=== PATIENT | female | born 1945 ===

== ENCOUNTER 2016-04-21 11:07 | Observation (INO) | payer MEDICARE, OTHER ==
[2016-04-21 11:08] VITALS: BMI 30.4
--- NOTE | 2016-04-21 11:39 | C.PDOC ---
History Of Present Illness 70 y/o female, whose PMHx includes anxiety, COPD, depression, and A-Fib, presents to the ED complaining of pain to the whole body, including chest pain, abdominal pain, bilateral leg pain, headache, non-productive cough, and nausea. Patient cannot specify onset but describes her symptoms as ongoing. She denies fever, shortness of breath, or other complaints. 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 Time Seen by Provider: 04/21/16 11:27 Chief Complaint (Nursing): Chest Pain History/Exam Limitations: no limitations Onset/Duration Of Symptoms: Gradual, Persistent, Unknown Current Symptoms Are (Timing): Still Present Recent travel outside of the [place]: No Past Medical History Reviewed: Historical Data, Nursing Documentation, Vital Signs Vital Signs: Last Vital Signs Temp Pulse 103 H 04/21/16 15:30 Resp 24 04/21/16 15:30 BP 141/60 04/21/16 15:30 Pulse Ox 100 04/21/16 15:30 - Medical History PMH: Anxiety, Arthritis, Asthma, Atrial Fibrillation, Cardia Arrhythmia, COPD, Depression, Emphysema, Fractures (Right Shoulder), Gastritis, Gastrointestinal Ulcer, HTN, Osteoporosis Surgical History: Appendectomy, Cholecystectomy, Endoscopy - [facility] Procedures CLOSED ENDOSCOPIC BIOPSY OF LARGE INTESTINE (11/26/13) ESOPHAGOGASTRODUODENOSCOPY [EGD] W/CLOSED BIOPSY (11/28/13) Family History: States: Unknown Family Hx - Social History Hx Tobacco Use: No Hx Alcohol Use: No Hx Substance Use: No - Immunization History Hx Tetanus Toxoid Vaccination: No Hx Influenza Vaccination: No Hx Pneumococcal Vaccination: No Review Of Systems Constitutional: Negative for: Fever Cardiovascular: Positive for: Chest Pain Respiratory: Positive for: Cough. Negative for: Shortness of Breath, Sputum Gastrointestinal: Positive for: Nausea, Abdominal Pain Musculoskeletal: Positive for: Leg Pain, Other ("body pain") Neurological: Positive for: Headache Physical Exam - Physical Exam Appears: Non-toxic, No Acute Distress Skin: Normal Color, Warm, Dry Head: Atraumatic, Normacephalic Eye(s): bilateral: Other (blind) Ear(s): Bilateral: Normal Nose: Normal Oral Mucosa: Moist Throat: Normal, No Erythema, No Exudate Neck: Normal ROM, No Midline Cervical Tenderness, Supple Chest: Symmetrical, No Tenderness Cardiovascular: Other (tachycardic & irregular) Respiratory: No Rales, No Rhonchi, No Wheezing, Other (shallow breath sounds; poor effort) Gastrointestinal/Abdominal: Soft, Tenderness (generalized, non-focal), No Guarding, No Rebound Back: Normal Inspection, No CVA Tenderness, No Vertebral Tenderness Extremity: Normal ROM, Tenderness (b/l lower extremities, non-focal; no swelling , no erythema, no ecchymosis), No Deformity Pulses: Left Dorsalis Pedis: Normal, Right Dorsalis Pedis: Normal Neurological/Psych: Oriented x3, Normal Speech, Normal Cognition, Normal Sensation ED Course And Treatment - Laboratory Results Result Diagrams: 04/21/16 11:44 04/21/16 11:44 ECG: Interpreted By Me ECG Rhythm: Sinus Tachycardia, Junctional Rhythm Rate From EC (bpm) O2 Sat by Pulse Oximetry: 97 (ra) Pulse Ox Interpretation: Normal - Other Rad Chest X-Ray X-Ray: Viewed By Me, Read By Radiologist (Hieu Carroll MD) Interpretation: FINDINGS: LUNGS: Mild venous congestion. Biapical pleural thickening with upper lobe granulomatous changes. PLEURA: No pneumothorax or pleural fluid seen. CARDIOVASCULAR: Mild cardiomegaly. OSSEOUS STRUCTURES: Postsurgical changes in the right shoulder. VISUALIZED UPPER ABDOMEN: Normal. OTHER FINDINGS: None. IMPRESSION: Mild venous congestion. Medical Decision Making Medical Decision Making: Impression: patient complains of pain to the whole body. Prior records reviewed, patient was seen 04/01/16 for whole body pain and discharged after normal workup. Plan: * EKG * CXR * Blood Work * Influenza A B * Urinalysis * Urine Culture * Tylenol PO, IV Fluids Progress: Labs reviewed, no acute findings from last visit Patient continues to complain of pain to legs, abdomen, body Case discussed with Dr Saenz who evaluated patient and recommended CT abdomen CT ordered and reviewed with no acute findings Patient remains unchanged. Call and spoke to Dr Franca Mendoza who accepts patient for observation Disposition - Disposition Disposition: HOSPITALIZED Disposition Time: 16:50 Condition: STABLE - POA Present On Arrival: None - Clinical Impression Clinical Impression: Whole body pain, Chest pain, Atrial fibrillation - PA / WAIVER ANALYST / Resident Statement MD/DO has reviewed & agrees with the documentation as recorded. - Scribe Statement The provider has reviewed the documentation as recorded by the Scribe (Selina Gutierrez) All medical record entries made by the Scribe were at my direction and personally dictated by me. I have reviewed the chart and agree that the record accurately reflects my personal performance of the history, physical exam, medical decision making, and the department course for this patient. I have also personally directed, reviewed, and agree with the discharge instructions and disposition. Decision To Admit - Pt Status Changed To: Hospital Disposition Of: Observation - . Bed Request Type: Telemetry Admitting Physician: Porsche Mendoza Patient Diagnosis: Whole body pain, Chest pain, Atrial fibrillation
[2016-04-21 11:48] LABS: BASO % 0.3 % (0.0-2.0); EOS % 0.3 % (0.0-4.0); HEMATOCRIT 39.7 % (34.0-47.0); LYMPH # 0.2 K/uL (1.0-4.3); LYMPH % 2.8 % (20.0-40.0); MEAN CELL VOLUME 92.5 fL (81.0-99.0); MEAN CORPUSCULAR HEMOGLOBIN 31.4 pg (27.0-31.0); MEAN CORPUSCULAR HGB CONC 33.9 g/dL (33.0-37.0); MEAN PLATELET VOLUME 9.8 fL (7.2-11.7); MONO % 12.8 % (0.0-10.0); PLATELET COUNT 123 K/uL (130-400); RED CELL DISTRIBUTION WIDTH 14.2 % (11.5-14.5); WHITE BLOOD COUNT 7.5 K/uL (4.8-10.8)
[2016-04-21 11:58] LABS: CHLORIDE 98 mmol/L (98-107); POTASSIUM 3.4 mmol/L (3.6-5.2); SODIUM 140 mmol/L (132-148)
[2016-04-21 12:00] LABS: BILIRUBIN,TOTAL 1.2 mg/dL (0.2-1.3); GFR AFRICAN-AMERICAN > 60; INR 1.2
[2016-04-21 12:01] LABS: ALB/GLOB RATIO 1.2 (1.0-2.1); ALKALINE PHOSPHATASE 101 U/L (38-126); ALT/SGPT 39 U/L (9-52); AST/SGOT 31 U/L (14-36); BLOOD UREA NITROGEN 11 mg/dL (7-17); CALCIUM 8.8 mg/dl (8.6-10.4); CARBON DIOXIDE 26 mmol/L (22-30); GLUCOSE,RANDOM 109 mg/dL (65-105); TOTAL PROTEIN 7.2 g/dL (6.3-8.3)
[2016-04-21] MEDS ORDERED: Sodium Chloride 0.9% 1,000 ML ONE (12:01)
[2016-04-21] MEDS: Sodium Chloride 0.9% 1,000 ML IV SCH ×2 (12:03→22:22)
[2016-04-21 12:19] LABS: BASOPHIL 1 % (0-2); NEUTROPHIL 85 % (50-75); REACTIVE LYMPHOCYTES 1 % (0-0); TOTAL CELLS COUNTED 100
--- NOTE | 2016-04-21 12:24 | RAD ---
PROCEDURE: CHEST RADIOGRAPH, 1 VIEW HISTORY: Shortness of breath COMPARISON: None available. FINDINGS: LUNGS: Mild venous congestion. Biapical pleural thickening with upper lobe granulomatous changes. PLEURA: No pneumothorax or pleural fluid seen. CARDIOVASCULAR: Mild cardiomegaly. OSSEOUS STRUCTURES: Postsurgical changes in the right shoulder VISUALIZED UPPER ABDOMEN: Normal. OTHER FINDINGS: None. IMPRESSION: Mild venous congestion.
[2016-04-21 15:35] LABS: RBC URINE 3 /hpf (0-3); URINE BILIRUBIN NEGATIVE (NEGATIVE); URINE BLOOD 1+ (NEGATIVE); URINE COLOR Yellow (YELLOW); URINE GLUCOSE (UA) NORMAL (Normal); URINE KETONE 1+ mg/dL (NEGATIVE); URINE LEUKOCYTE ESTERASE TRACE Leu/uL (Negative); URINE PROTEIN NEGATIVE (NEGATIVE); URINE UROBILINOGEN NORMAL mg/dL (0.2-1.0); WBC URINE 2 /hpf (0-5)
[2016-04-21] MEDS ORDERED: Iodixanol 320 MG/ML 100 ML BOTTLE IV ONE (15:35)
--- NOTE | 2016-04-21 16:17 | CT ---
PROCEDURE: CT Abdomen and Pelvis with contrast HISTORY: ABD PAIN COMPARISON: Abdominal ultrasound performed 08/20/15, CT abdomen and pelvis without IV contrast performed 12/13/13 TECHNIQUE: Contrast dose: 100 cc Visipaque 320 Radiation dose: Total exam DLP = 944.22 mGy-cm. FINDINGS: LOWER THORAX: No visible consolidation, pleural effusion, or pneumothorax. 4 mm right middle lobe pulmonary nodule (series 5, image 3). Small hiatal hernia. LIVER: Hypoattenuation of the liver compatible with hepatic steatosis. GALLBLADDER AND BILE DUCTS: Cholecystectomy. Mild central intrahepatic and extrahepatic biliary ductal dilatation. PANCREAS: Unremarkable. SPLEEN: Unremarkable. ADRENALS: Unremarkable. KIDNEYS AND URETERS: The kidneys enhance symmetrically. No evidence of hydronephrosis or obstructing calculus. VASCULATURE: No aortic aneurysm. BOWEL: The stomach is nondistended. Lack of oral contrast limits evaluation for bowel pathology. Bowel loops appear within normal limits of caliber without evidence of obstruction. APPENDIX: The appendix appears within normal limits of caliber. No secondary signs of acute appendicitis. PERITONEUM: No significant free fluid. No definite free air. LYMPH NODES: No bulky lymphadenopathy identified. BLADDER: Unremarkable. REPRODUCTIVE: Uterus is present. BONES: Osseous demineralization. Degenerative changes. OTHER FINDINGS: None. IMPRESSION: 4 mm right middle lobe pulmonary nodule. In the absence of risk factors for lung cancer, no specific imaging follow-up is required. If the patient is a smoker or has other risk factors, follow-up CT at 12 months is recommended to document stability. Hepatic steatosis. Cholecystectomy with mild central intrahepatic and extrahepatic ductal dilatation.
[2016-04-21] MEDS ORDERED: FLOVENT PO PRN (17:58)
--- NOTE | 2016-04-21 18:05 | CP.PCM.HP ---
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) - RENAL Hx Chronic Kidney Disease: No - ENDOCRINE/METABOLIC Hx Endocrine Disorders: No - HEMATOLOGICAL/ONCOLOGICAL Hx Human Immunodeficiency Virus (HIV): No - INTEGUMENTARY Hx Dermatological Problems: No - MUSCULOSKELETAL/RHEUMATOLOGICAL Hx Arthritis: Yes Hx Fractures: Yes (Right Shoulder) Hx Osteoporosis: Yes - GASTROINTESTINAL Hx Gastritis: Yes - GENITOURINARY/GYNECOLOGICAL Hx Sexually Transmitted Disorders: No - PSYCHIATRIC Hx Anxiety: Yes Hx Depression: Yes Hx Substance Use: No - SURGICAL HISTORY Hx Appendectomy: Yes Hx Cholecystectomy: Yes - ANESTHESIA Hx Anesthesia: Yes Hx Anesthesia Reactions: No Hx Malignant Hyperthermia: No Meds Allergies/Adverse Reactions: Allergies Allergy/AdvReac Type Severity Reaction Status Date / Time Sulfa (Sulfonamide Allergy ANAPHYLAXIS Verified 04/21/16 11:23 Antibiotics) sulfasalazine Allergy ITCHING Verified 04/21/16 11:23 Results - Vital Signs Recent Vital Signs: Last Vital Signs Temp Pulse 89 04/21/16 17:56 Resp 25 H 04/21/16 17:56 BP 121/74 04/21/16 17:56 Pulse Ox 97 04/21/16 17:56 - Labs Result Diagrams: 04/21/16 11:44 04/21/16 11:44
[2016-04-21] MEDS ORDERED: Potassium Chloride 20 mEq ER Tab PO ONE (18:30)
--- NOTE | 2016-04-21 21:42 | CP.PCM.CON ---
History of Present Illness - History of Present Illness History of Present Illness: 70 year old with COPD, ? A fib. had cardiac w/u at [place] 12/22 NL LV on echo no or pericardial disease. EST no sig Ischemia. now admitted through ED with generalized body aches, including chest. no EKG changes observe check enzymes. pt is blind and depressed Review of Systems - Constitutional Constitutional: Anorexia - EENT Eyes: absent: Discharge Ears: absent: Ear Discharge, Dizziness Nose/Mouth/Throat: absent: Epistaxis - Cardiovascular Cardiovascular: Chest Pain. absent: Acrocyanosis, Diaphoresis, Palpitations, Syncope - Respiratory Respiratory: Hemoptysis. absent: Cough, Dyspnea - Gastrointestinal Gastrointestinal: absent: Diarrhea, Hematochezia, Vomiting - Genitourinary Genitourinary: absent: Change in Urinary Stream - Reproductive: Female Reproductive:Female: Post Menopausal 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) - RENAL Hx Chronic Kidney Disease: No - ENDOCRINE/METABOLIC Hx Endocrine Disorders: No - HEMATOLOGICAL/ONCOLOGICAL Hx Human Immunodeficiency Virus (HIV): No - INTEGUMENTARY Hx Dermatological Problems: No - MUSCULOSKELETAL/RHEUMATOLOGICAL Hx Arthritis: Yes Hx Fractures: Yes (Right Shoulder) Hx Osteoporosis: Yes - GASTROINTESTINAL Hx Gastritis: Yes - GENITOURINARY/GYNECOLOGICAL Hx Sexually Transmitted Disorders: No - PSYCHIATRIC Hx Anxiety: Yes Hx Depression: Yes Hx Substance Use: No - SURGICAL HISTORY Hx Appendectomy: Yes Hx Cholecystectomy: Yes - ANESTHESIA Hx Anesthesia: Yes Hx Anesthesia Reactions: No Hx Malignant Hyperthermia: No Meds Allergies/Adverse Reactions: Allergies Allergy/AdvReac Type Severity Reaction Status Date / Time Sulfa (Sulfonamide Allergy ANAPHYLAXIS Verified 04/21/16 11:23 Antibiotics) sulfasalazine Allergy ITCHING Verified 04/21/16 11:23 - Medications Medications: Current Medications Alprazolam (Xanax) 1.5 mg PO TID [facility] Last Admin: 04/21/16 18:43 Dose: 1.5 mg Aspirin (Ecotrin) 81 mg PO DAILY [facility] Bupropion HCl (Wellbutrin Xl) 300 mg PO DAILY [facility] Calcium Carbonate (Oscal) 500 mg PO DAILY [facility] Clopidogrel Bisulfate (Plavix) 75 mg PO DAILY [facility] Enoxaparin Sodium (Lovenox) 40 mg SC DAILY [facility] Ergocalciferol (Drisdol 50,000 Intl Units Cap) 1 cap PO QWK [facility] Famotidine (Pepcid) 20 mg PO BID [facility] Furosemide (Lasix) 20 mg IVP DAILY [facility] Home Med (Acetaminophen/Diphenhydramine [Tylenol Pm Ex-Strength Caplet]) 1 tab PO HS [facility] Home Med (Flovent Hfa) 2 puff PO Q6 PRN PRN Reason: Shortness of Breath Home Med (Lando-3/Dha/Epa/Fish Oil [Lando-3 Fish Oil 1,000 Mg Sfgl]) 1,000 mg PO DAILY [facility] Sodium Chloride (Sodium Chloride 0.9%) 1,000 mls @ 100 mls/hr IV .Q10H [facility] Last Admin: 04/21/16 12:03 Dose: 100 mls/hr Isosorbide Mononitrate (Imdur) 30 mg PO DAILY [facility] Tiotropium [place] (Spiriva) 18 mcg INH RQD [facility] Physical Exam - Constitutional Appears: Non-toxic - Head Exam Head Exam: ATRAUMATIC - Eye Exam Additional comments: blind - ENT Exam ENT Exam: Mucous Membranes Moist - Neck Exam Neck exam: Negative for: Lymphadenopathy, Thyromegaly - Respiratory Exam Respiratory Exam: Clear to Auscultation Bilateral. absent: Rales - Cardiovascular Exam Cardiovascular Exam: REGULAR RHYTHM, Systolic Murmur - GI/Abdominal Exam GI & Abdominal Exam: Normal Bowel Sounds. absent: Organomegaly - Rectal Exam Rectal Exam: Deferred - Extremities Exam Extremities exam: Positive for: normal capillary refill. Negative for: calf tenderness - Neurological Exam Neurological exam: Alert, Oriented x3 - Psychiatric Exam Psychiatric exam: Depressed - Skin Skin Exam: Dry Results - Vital Signs Recent Vital Signs: Last Vital Signs Temp Pulse 89 04/21/16 21:30 Resp 18 04/21/16 21:30 BP 150/86 04/21/16 21:30 Pulse Ox 99 04/21/16 21:30 - Labs Result Diagrams: 04/21/16 11:44 04/21/16 11:44 Labs: Laboratory Results - last 24 hr 04/21/16 19:44 Total Creatine Kinase 37 CK-MB (Mass) 1.04 Troponin I, Quant < 0.0120 Assessment & Plan (1) Chest pain Status: Acute (2) Whole body pain Status: Acute (3) Atrial fibrillation Status: Chronic
[2016-04-21] MEDS ORDERED: ACETAMINOPHEN PO SCH (22:00)
[2016-04-21] MEDS ORDERED: DIPHENHYDRAMINE PO SCH (22:00)
[2016-04-22] MEDS: Tiotropium 18 mcg Cap For Inhalation INH SCH (07:43)
[2016-04-22] MEDS: Enoxaparin 40 mg Syringe SC SCH (10:47)
[2016-04-22] MEDS: buPROPion 150 mg/24 Hours XL Tab PO SCH (10:48)
[2016-04-22] MEDS: Omega-3-Acid Ethyl Esters 1 GM Cap PO SCH (12:00)
--- NOTE | 2016-04-22 18:18 | CP.PCM.PN ---
Subjective - Date & Time of Evaluation Date of Evaluation: 04/22/16 Time of Evaluation: 12:00 - Subjective Subjective: still depressed, no sob no pain, neg enzymes, no LA Objective - Vital Signs/Intake and Output Vital Signs (last 24 hours): Temp Pulse Resp BP Pulse Ox 98 F 81 20 120/74 96 04/22/16 15:10 04/22/16 16:11 04/22/16 15:10 04/22/16 15:10 04/22/16 15:10 - Medications Medications: Current Medications Acetaminophen (Tylenol 325mg Tab) 650 mg PO Q8H PRN PRN Reason: Headache Last Admin: 04/22/16 08:59 Dose: 650 mg Alprazolam (Xanax) 1.5 mg PO TID [facility] Last Admin: 04/22/16 18:07 Dose: 1.5 mg Aspirin (Ecotrin) 81 mg PO DAILY [facility] Last Admin: 04/22/16 10:46 Dose: 81 mg Bupropion HCl (Wellbutrin Xl) 300 mg PO DAILY [facility] Last Admin: 04/22/16 10:48 Dose: 300 mg Calcium Carbonate (Oscal) 500 mg PO DAILY [facility] Last Admin: 04/22/16 10:47 Dose: 500 mg Clopidogrel Bisulfate (Plavix) 75 mg PO DAILY [facility] Last Admin: 04/22/16 10:47 Dose: 75 mg Enoxaparin Sodium (Lovenox) 40 mg SC DAILY [facility] Last Admin: 04/22/16 10:47 Dose: 40 mg Ergocalciferol (Drisdol 50,000 Intl Units Cap) 1 cap PO QWK [facility] Famotidine (Pepcid) 20 mg PO BID [facility] Last Admin: 04/22/16 17:32 Dose: 20 mg Furosemide (Lasix) 20 mg IVP DAILY [facility] Last Admin: 04/22/16 10:46 Dose: 20 mg Home Med (Flovent Hfa) 2 puff PO Q6 PRN PRN Reason: Shortness of Breath Sodium Chloride (Sodium Chloride 0.9%) 1,000 mls @ 100 mls/hr IV .Q10H [facility] Last Admin: 04/21/16 22:22 Dose: 100 mls/hr Isosorbide Mononitrate (Imdur) 30 mg PO DAILY [facility] Last Admin: 04/22/16 10:46 Dose: 30 mg Oexqy-[id number] Ethyl Esters (Lovaza) 1 gm PO DAILY [facility] Last Admin: 04/22/16 12:00 Dose: 1 gm Tiotropium [place] (Spiriva) 18 mcg INH RQD [facility] Last Admin: 04/22/16 07:43 Dose: 18 mcg - Labs Labs: PT 12.9 SECONDS (9.7-12.2) H 04/21/16 11:44 INR 1.2 04/21/16 11:44 APTT 32 SECONDS (21-34) 04/21/16 11:44 - Constitutional Appears: Non-toxic - Head Exam Head Exam: ATRAUMATIC - Eye Exam Eye Exam: EOMI - ENT Exam ENT Exam: Mucous Membranes Moist - Neck Exam Neck Exam: absent: Lymphadenopathy, Thyromegaly - Respiratory Exam Respiratory Exam: Clear to Ausculation Bilateral. absent: Rales - Cardiovascular Exam Cardiovascular Exam: REGULAR RHYTHM, Murmur - GI/Abdominal Exam GI & Abdominal Exam: Normal Bowel Sounds. absent: Organomegaly - Rectal Exam Rectal Exam: Deferred - Extremities Exam Extremities Exam: Normal Capillary Refill. absent: Calf Tenderness - Neurological Exam Neurological Exam: Alert, Oriented x3 - Psychiatric Exam Psychiatric exam: Depressed - Skin Skin Exam: Dry Assessment and Plan (1) Chest pain Status: Acute (2) Whole body pain Status: Acute (3) Atrial fibrillation Status: Chronic
--- NOTE | 2016-04-22 18:18 | CP.PCM.PN ---
Subjective - Date & Time of Evaluation Date of Evaluation: 04/22/16 Time of Evaluation: 10:40 - Subjective Subjective: clinically same Objective - Vital Signs/Intake and Output Vital Signs (last 24 hours): Temp Pulse Resp BP Pulse Ox 98 F 81 20 120/74 96 04/22/16 15:10 04/22/16 16:11 04/22/16 15:10 04/22/16 15:10 04/22/16 15:10 - Medications Medications: Current Medications Acetaminophen (Tylenol 325mg Tab) 650 mg PO Q8H PRN PRN Reason: Headache Last Admin: 04/22/16 08:59 Dose: 650 mg Alprazolam (Xanax) 1.5 mg PO TID [facility] Last Admin: 04/22/16 18:07 Dose: 1.5 mg Aspirin (Ecotrin) 81 mg PO DAILY [facility] Last Admin: 04/22/16 10:46 Dose: 81 mg Bupropion HCl (Wellbutrin Xl) 300 mg PO DAILY [facility] Last Admin: 04/22/16 10:48 Dose: 300 mg Calcium Carbonate (Oscal) 500 mg PO DAILY [facility] Last Admin: 04/22/16 10:47 Dose: 500 mg Clopidogrel Bisulfate (Plavix) 75 mg PO DAILY [facility] Last Admin: 04/22/16 10:47 Dose: 75 mg Enoxaparin Sodium (Lovenox) 40 mg SC DAILY [facility] Last Admin: 04/22/16 10:47 Dose: 40 mg Ergocalciferol (Drisdol 50,000 Intl Units Cap) 1 cap PO QWK [facility] Famotidine (Pepcid) 20 mg PO BID [facility] Last Admin: 04/22/16 17:32 Dose: 20 mg Furosemide (Lasix) 20 mg IVP DAILY [facility] Last Admin: 04/22/16 10:46 Dose: 20 mg Home Med (Flovent Hfa) 2 puff PO Q6 PRN PRN Reason: Shortness of Breath Sodium Chloride (Sodium Chloride 0.9%) 1,000 mls @ 100 mls/hr IV .Q10H [facility] Last Admin: 04/21/16 22:22 Dose: 100 mls/hr Isosorbide Mononitrate (Imdur) 30 mg PO DAILY [facility] Last Admin: 04/22/16 10:46 Dose: 30 mg [id number] Ethyl Esters (Lovaza) 1 gm PO DAILY [facility] Last Admin: 04/22/16 12:00 Dose: 1 gm Tiotropium [place] (Spiriva) 18 mcg INH RQD [facility] Last Admin: 04/22/16 07:43 Dose: 18 mcg - Labs Labs: PT 12.9 SECONDS (9.7-12.2) H 04/21/16 11:44 INR 1.2 04/21/16 11:44 APTT 32 SECONDS (21-34) 04/21/16 11:44 - Constitutional Appears: Well - Head Exam Head Exam: ATRAUMATIC, NORMAL INSPECTION, NORMOCEPHALIC - Eye Exam Eye Exam: EOMI, Normal appearance, PERRL Pupil Exam: NORMAL ACCOMODATION, PERRL - ENT Exam ENT Exam: Mucous Membranes Moist, Normal Exam - Respiratory Exam Respiratory Exam: Decreased Breath Sounds - Cardiovascular Exam Cardiovascular Exam: REGULAR RHYTHM, +S1, +S2 - GI/Abdominal Exam GI & Abdominal Exam: Soft, Diminished Bowel Sounds - Rectal Exam Rectal Exam: Deferred
[2016-04-22] MEDS: Sodium Chloride 0.9% 1,000 ML IV SCH (19:59)
[2016-04-23] MEDS: Sodium Chloride 0.9% 1,000 ML IV SCH ×2 (03:52→14:20)
[2016-04-23] MEDS: Tiotropium 18 mcg Cap For Inhalation INH SCH (09:00)
[2016-04-23] MEDS: Enoxaparin 40 mg Syringe SC SCH (09:51)
[2016-04-23] MEDS: Omega-3-Acid Ethyl Esters 1 GM Cap PO SCH (09:51)
[2016-04-23] MEDS: buPROPion 150 mg/24 Hours XL Tab PO SCH (09:52)
--- NOTE | 2016-04-23 17:51 | CP.PCM.PN ---
Subjective - Date & Time of Evaluation Date of Evaluation: 04/23/16 Time of Evaluation: 14:00 - Subjective Subjective: No MD, stable hemodynamicaly Objective - Vital Signs/Intake and Output Vital Signs (last 24 hours): Temp Pulse Resp BP Pulse Ox 100.6 F H 93 H 20 117/72 96 04/23/16 15:00 04/23/16 16:16 04/23/16 15:00 04/23/16 15:00 04/23/16 15:00 Intake and Output: 04/23/16 04/23/16 06:59 18:59 Intake Total 800 Balance 800 - Medications Medications: Current Medications Acetaminophen (Tylenol 325mg Tab) 650 mg PO Q8H PRN PRN Reason: Headache Last Admin: 04/23/16 05:32 Dose: 650 mg Alprazolam (Xanax) 1.5 mg PO TID [facility] Last Admin: 04/23/16 14:18 Dose: Not Given Aspirin (Ecotrin) 81 mg PO DAILY [facility] Last Admin: 04/23/16 09:51 Dose: 81 mg Bupropion HCl (Wellbutrin Xl) 300 mg PO DAILY [facility] Last Admin: 04/23/16 09:52 Dose: 300 mg Calcium Carbonate (Oscal) 500 mg PO DAILY [facility] Last Admin: 04/23/16 09:52 Dose: 500 mg Clopidogrel Bisulfate (Plavix) 75 mg PO DAILY [facility] Last Admin: 04/23/16 09:52 Dose: 75 mg Enoxaparin Sodium (Lovenox) 40 mg SC DAILY [facility] Last Admin: 04/23/16 09:51 Dose: 40 mg Ergocalciferol (Drisdol 50,000 Intl Units Cap) 1 cap PO QWK [facility] Famotidine (Pepcid) 20 mg PO BID [facility] Last Admin: 04/23/16 09:52 Dose: 20 mg Furosemide (Lasix) 20 mg IVP DAILY [facility] Last Admin: 04/23/16 11:18 Dose: 20 mg Home Med (Flovent Hfa) 2 puff PO Q6 PRN PRN Reason: Shortness of Breath Sodium Chloride (Sodium Chloride 0.9%) 1,000 mls @ 100 mls/hr IV .Q10H [facility] Last Admin: 04/23/16 14:20 Dose: 100 mls/hr Isosorbide Mononitrate (Imdur) 30 mg PO DAILY [facility] Last Admin: 04/23/16 09:51 Dose: 30 mg Fjhuu-2-Hduc Ethyl Esters (Lovaza) 1 gm PO DAILY [facility] Last Admin: 04/23/16 09:51 Dose: 1 gm Tiotropium [place] (Spiriva) 18 mcg INH RQD [facility] Last Admin: 04/22/16 07:43 Dose: 18 mcg - Labs Labs: PT 12.9 SECONDS (9.7-12.2) H 04/21/16 11:44 INR 1.2 04/21/16 11:44 APTT 32 SECONDS (21-34) 04/21/16 11:44 - Constitutional Appears: Non-toxic - Head Exam Head Exam: ATRAUMATIC - Eye Exam Eye Exam: EOMI - ENT Exam ENT Exam: Mucous Membranes Moist - Neck Exam Neck Exam: absent: Lymphadenopathy, Thyromegaly - Respiratory Exam Respiratory Exam: Clear to Ausculation Bilateral. absent: Rales - Cardiovascular Exam Cardiovascular Exam: REGULAR RHYTHM - GI/Abdominal Exam GI & Abdominal Exam: Normal Bowel Sounds. absent: Organomegaly - Rectal Exam Rectal Exam: Deferred - Extremities Exam Extremities Exam: Normal Capillary Refill. absent: Calf Tenderness - Neurological Exam Neurological Exam: Alert, Oriented x3 - Psychiatric Exam Psychiatric exam: Depressed - Skin Skin Exam: Dry Assessment and Plan (1) Chest pain Status: Acute (2) Whole body pain Status: Acute (3) Atrial fibrillation Status: Chronic
--- NOTE | 2016-04-23 23:20 | CP.PCM.PN ---
Subjective - Date & Time of Evaluation Date of Evaluation: 04/23/16 Time of Evaluation: 18:00 Objective - Vital Signs/Intake and Output Vital Signs (last 24 hours): Temp Pulse Resp BP Pulse Ox 100.6 F H 93 H 20 117/72 96 04/23/16 15:00 04/23/16 16:16 04/23/16 15:00 04/23/16 15:00 04/23/16 15:00 Intake and Output: 04/23/16 04/24/16 18:59 06:59 Intake Total 800 Balance 800 - Medications Medications: Current Medications Acetaminophen (Tylenol 325mg Tab) 650 mg PO Q8H PRN PRN Reason: Headache Last Admin: 04/23/16 05:32 Dose: 650 mg Alprazolam (Xanax) 1.5 mg PO Q8 [facility] Last Admin: 04/23/16 21:23 Dose: 1.5 mg Aspirin (Ecotrin) 81 mg PO DAILY [facility] Last Admin: 04/23/16 09:51 Dose: 81 mg Bupropion HCl (Wellbutrin Xl) 300 mg PO DAILY [facility] Last Admin: 04/23/16 09:52 Dose: 300 mg Calcium Carbonate (Oscal) 500 mg PO DAILY [facility] Last Admin: 04/23/16 09:52 Dose: 500 mg Clopidogrel Bisulfate (Plavix) 75 mg PO DAILY [facility] Last Admin: 04/23/16 09:52 Dose: 75 mg Enoxaparin Sodium (Lovenox) 40 mg SC DAILY [facility] Last Admin: 04/23/16 09:51 Dose: 40 mg Ergocalciferol (Drisdol 50,000 Intl Units Cap) 1 cap PO QWK [facility] Famotidine (Pepcid) 20 mg PO BID [facility] Last Admin: 04/23/16 18:00 Dose: 20 mg Furosemide (Lasix) 20 mg IVP DAILY [facility] Last Admin: 04/23/16 11:18 Dose: 20 mg Home Med (Flovent Hfa) 2 puff PO Q6 PRN PRN Reason: Shortness of Breath Sodium Chloride (Sodium Chloride 0.9%) 1,000 mls @ 100 mls/hr IV .Q10H [facility] Last Admin: 04/23/16 14:20 Dose: 100 mls/hr Isosorbide Mononitrate (Imdur) 30 mg PO DAILY [facility] Last Admin: 04/23/16 09:51 Dose: 30 mg [id number] Ethyl Esters (Lovaza) 1 gm PO DAILY [facility] Last Admin: 04/23/16 09:51 Dose: 1 gm Tiotropium [place] (Spiriva) 18 mcg INH RQD [facility] Last Admin: 04/22/16 07:43 Dose: 18 mcg - Labs Labs: PT 12.9 SECONDS (9.7-12.2) H 04/21/16 11:44 INR 1.2 04/21/16 11:44 APTT 32 SECONDS (21-34) 04/21/16 11:44
[2016-04-23] MEDS ORDERED: Potassium Chloride 20 mEq ER Tab PO STA (23:23)
--- NOTE | 2016-04-24 09:25 | CARD ---
APPROVED REPORT EKG Measurement Heart [id number] <Conclusion> Unusual P axis and short RI, probable junctional tachycardia vs atrial flutter lateral st segment depressions consider ischemia vs rate related changes Abnormal ECG
[2016-04-24] MEDS: Enoxaparin 40 mg Syringe SC SCH (09:35)
[2016-04-24] MEDS: buPROPion 150 mg/24 Hours XL Tab PO SCH (09:36)
[2016-04-24] MEDS: Omega-3-Acid Ethyl Esters 1 GM Cap PO SCH (09:36)
--- NOTE | 2016-04-24 10:59 | CP.PCM.PN ---
Subjective - Date & Time of Evaluation Date of Evaluation: 04/24/16 Objective - Vital Signs/Intake and Output Vital Signs (last 24 hours): Temp Pulse Resp BP Pulse Ox 98 F 108 H 20 125/67 95 04/24/16 09:01 04/24/16 09:03 04/24/16 09:01 04/24/16 09:01 04/24/16 09:01 - Medications Medications: Current Medications Acetaminophen (Tylenol 325mg Tab) 650 mg PO Q8H PRN PRN Reason: Headache Last Admin: 04/23/16 05:32 Dose: 650 mg Alprazolam (Xanax) 1.5 mg PO Q8 [facility] Last Admin: 04/24/16 05:34 Dose: 1.5 mg Aspirin (Ecotrin) 81 mg PO DAILY [facility] Last Admin: 04/24/16 09:34 Dose: 81 mg Bupropion HCl (Wellbutrin Xl) 300 mg PO DAILY [facility] Last Admin: 04/24/16 09:36 Dose: 300 mg Calcium Carbonate (Oscal) 500 mg PO DAILY [facility] Last Admin: 04/24/16 09:35 Dose: 500 mg Clopidogrel Bisulfate (Plavix) 75 mg PO DAILY [facility] Last Admin: 04/24/16 09:34 Dose: 75 mg Enoxaparin Sodium (Lovenox) 40 mg SC DAILY [facility] Last Admin: 04/24/16 09:35 Dose: 40 mg Ergocalciferol (Drisdol 50,000 Intl Units Cap) 1 cap PO QWK [facility] Famotidine (Pepcid) 20 mg PO BID [facility] Last Admin: 04/24/16 09:34 Dose: 20 mg Furosemide (Lasix) 40 mg PO DAILY [facility] Home Med (Flovent Hfa) 2 puff PO Q6 PRN PRN Reason: Shortness of Breath Isosorbide Mononitrate (Imdur) 30 mg PO DAILY [facility] Last Admin: 04/24/16 09:33 Dose: 30 mg [id number]-5-Uhcr Ethyl Esters (Lovaza) 1 gm PO DAILY [facility] Last Admin: 04/24/16 09:36 Dose: 1 gm Tiotropium [place] (Spiriva) 18 mcg INH RQD [facility] Last Admin: 04/22/16 07:43 Dose: 18 mcg - Labs Labs: PT 12.9 SECONDS (9.7-12.2) H 04/21/16 11:44 INR 1.2 04/21/16 11:44 APTT 32 SECONDS (21-34) 04/21/16 11:44
[2016-04-24 16:16] VITALS: BP 117/83; RESP 22; TEMP 98; O2SAT 99
[2016-04-24 17:40] VITALS: PULSE 0
[2016-04-28] MEDS ORDERED: Ergocalciferol 50,000 Intl Units Cap PO SCH (10:00)
== END 2016-04-24 18:45 | disposition left against medical advice (07) ==
LOC: C.ER 11:07 → C.9E 16:51 → C.6T 22:07
PROVIDERS: ADMIT Internal Medicine Nephrology; ATTEND Internal Medicine Nephrology
DX: R07.9 Chest pain, unspecified (principal); R52 Pain, unspecified; I48.91 Unspecified atrial fibrillation; R10.9 Unspecified abdominal pain; J43.9 Emphysema, unspecified; Z87.891 Personal history of nicotine dependence; I10 Essential (primary) hypertension; H54.0 Blindness, both eyes; F32.9 Major depressive disorder, single episode, unspecified; J45.909 Unspecified asthma, uncomplicated; Z90.49 Acquired absence of other specified parts of digestive tract
CPT/HCPCS: 71010; 74177; 80053; 81001; 83690; 83880; 84484; 85025; 85610; 85730; 87086; 87804; 93005; 94640; 99285; G0378; J1650; J1940; J7040; Q9967

== ENCOUNTER 2016-07-21 00:38 | Emergency (ER) | payer MEDICARE, OTHER ==
[2016-07-21 00:39] VITALS: BMI 30.4
--- NOTE | 2016-07-21 01:02 | C.PDOC ---
History Of Present Illness Patient presents to the ER with a complaint of dysuria and frequency that has worsened over the last 2 days. Patient feels like she cannot void. Denies fever or chills. Time Seen by Provider: 07/21/16 01:02 Chief Complaint (Nursing): Female Genitourinary History Per: Patient History/Exam Limitations: no limitations Onset/Duration Of Symptoms: Days (2) Current Symptoms Are (Timing): Gone Severity: Moderate Pain Scale Rating Of: 4 Quality Of Discomfort: Unable To Describe Associated Symptoms: Urinary Symptoms. denies: Fever, Chills Alleviating Factors: None Recent travel outside of the [place]: No Past Medical History Reviewed: Historical Data, Nursing Documentation, Vital Signs Vital Signs: Last Vital Signs Temp 98.6 F 07/21/16 00:50 Pulse 80 07/21/16 00:50 Resp 14 07/21/16 00:50 BP 116/77 07/21/16 00:50 Pulse Ox 98 07/21/16 03:49 - Medical History PMH: Anxiety, Arthritis, Asthma, Atrial Fibrillation, Cardia Arrhythmia, COPD, Depression, Emphysema, Fractures (Right Shoulder), Gastritis, Gastrointestinal Ulcer, HTN, Osteoporosis Surgical History: Appendectomy, Cholecystectomy, Endoscopy - [facility] Procedures CLOSED ENDOSCOPIC BIOPSY OF LARGE INTESTINE (11/26/13) ESOPHAGOGASTRODUODENOSCOPY [EGD] W/CLOSED BIOPSY (11/28/13) Family History: States: No Known Family Hx - Social History Hx Tobacco Use: No Hx Alcohol Use: No Hx Substance Use: No - Immunization History Hx Tetanus Toxoid Vaccination: No Hx Influenza Vaccination: No Hx Pneumococcal Vaccination: No Review Of Systems Constitutional: Negative for: Fever, Chills Genitourinary: Positive for: Dysuria, Frequency Physical Exam - Physical Exam Appears: Non-toxic Skin: Warm, Dry Oral Mucosa: Moist Chest: Symmetrical, No Tenderness Cardiovascular: Rhythm Regular, No Murmur Respiratory: No Rales, No Rhonchi, No Wheezing Gastrointestinal/Abdominal: Soft, Tenderness (Suprapubic) Neurological/Psych: Oriented x3 ED Course And Treatment O2 Sat by Pulse Oximetry: 98 (Room air) Pulse Ox Interpretation: Normal Progress Note: Macrobid and pyridium ordered. Disposition Counseled Patient/Family Regarding: Studies Performed, Diagnosis, Need For Followup, Rx Given - Disposition Referrals: Sarita Darden MD [Staff Provider] - Disposition: HOME/ ROUTINE Disposition Time: 01:02 Condition: FAIR Prescriptions: Nitrofurantoin Macrocrystals [Macrobid] 1 cap PO BID #14 cap Phenazopyridine HCl [Pyridium] 200 mg PO TID #6 tablet Instructions: Urinary Tract Infection in Women (DC) - Clinical Impression Clinical Impression: UTI (lower urinary tract infection) - Scribe Statement The provider has reviewed the documentation as recorded by the Scribnavjot Minor All medical record entries made by the Scribe were at my direction and personally dictated by me. I have reviewed the chart and agree that the record accurately reflects my personal performance of the history, physical exam, medical decision making, and the department course for this patient. I have also personally directed, reviewed, and agree with the discharge instructions and disposition.
[2016-07-21 01:48] LABS: RBC URINE 6 /hpf (0-3); URINE BACTERIA MOD (<OCC); URINE BILIRUBIN NEGATIVE (NEGATIVE); URINE BLOOD NEGATIVE (NEGATIVE); URINE COLOR Yellow (YELLOW); URINE GLUCOSE (UA) NORMAL (Normal); URINE KETONE NEGATIVE (NEGATIVE); URINE LEUKOCYTE ESTERASE 3+ Leu/uL (Negative); URINE PROTEIN 1+ mg/dL (NEGATIVE); URINE UROBILINOGEN NORMAL mg/dL (0.2-1.0); WBC CLUMPS FEW /hpf; WBC URINE 858 /hpf (0-5)
[2016-07-21 05:26] VITALS: BP 119/72; PULSE 69; RESP 20; TEMP 97; O2SAT 97
== END 2016-07-21 06:13 | disposition home or self-care (01) ==
LOC: C.ER 00:38
DX: N39.0 Urinary tract infection, site not specified (principal)

== ENCOUNTER 2016-08-14 18:35 | Emergency (ER) | payer MEDICARE, OTHER ==
[2016-08-14 18:36] VITALS: BMI 30.4
--- NOTE | 2016-08-14 19:28 | C.PDOC ---
History Of Present Illness Patient presents to the ED with complaints of back pain and leg pain with unknown start date. Patient notes similar symptoms in the past and denies any fever, chills, nausea, vomiting, chest pain, SOB, or trauma. Time Seen by Provider: 08/14/16 19:28 Chief Complaint (Nursing): Back Pain History Per: Patient History/Exam Limitations: no limitations Onset/Duration Of Symptoms: Unknown Current Symptoms Are (Timing): Still Present Quality Of Discomfort: "Pain" (vague description of pain ) Severity: Mild Pain Scale Rating Of: 3 Previous Symptoms: Back Pain Associated Symptoms: None Recent travel outside of the [place]: No Additional History Per: Prior Records Past Medical History Reviewed: Historical Data, Nursing Documentation, Vital Signs Vital Signs: Last Vital Signs Temp 98 F 08/14/16 18:59 Pulse 77 08/14/16 18:59 Resp 18 08/14/16 18:59 BP 150/78 08/14/16 18:59 Pulse Ox 98 08/14/16 22:12 - Medical History PMH: Anxiety, Arthritis, Asthma, Atrial Fibrillation, Cardia Arrhythmia, COPD, Depression, Emphysema, Fractures (Right Shoulder), Gastritis, Gastrointestinal Ulcer, HTN, Osteoporosis Surgical History: Appendectomy, Cholecystectomy, Endoscopy - [facility] Procedures CLOSED ENDOSCOPIC BIOPSY OF LARGE INTESTINE (11/26/13) ESOPHAGOGASTRODUODENOSCOPY [EGD] W/CLOSED BIOPSY (11/28/13) Family History: States: Unknown Family Hx - Social History Hx Tobacco Use: No Hx Alcohol Use: No Hx Substance Use: No - Immunization History Hx Tetanus Toxoid Vaccination: No Hx Influenza Vaccination: No Hx Pneumococcal Vaccination: No Review Of Systems Constitutional: Negative for: Fever, Chills ENT: Negative for: Throat Pain Cardiovascular: Negative for: Chest Pain, Palpitations Respiratory: Negative for: Cough, Shortness of Breath Gastrointestinal: Negative for: Nausea, Vomiting, Abdominal Pain, Diarrhea Genitourinary: Negative for: Dysuria Musculoskeletal: Positive for: Back Pain, Leg Pain Skin: Negative for: Rash, Lesions, Jaundice Neurological: Negative for: Weakness, Numbness Psych: Negative for: Anxiety Physical Exam - Physical Exam Appears: Non-toxic, No Acute Distress Skin: Warm, Dry Head: Normacephalic Eye(s): bilateral: Other (Patient is blind bilaterally ) Oral Mucosa: Moist Neck: Trachea Midline, Supple Chest: Symmetrical, No Deformity Cardiovascular: Rhythm Regular Respiratory: No Rales, No Rhonchi, No Wheezing Gastrointestinal/Abdominal: Bowel Sounds (good bowel sounds ), Soft, No Tenderness, No Distention, No Guarding, No Rebound Back: Vertebral Tenderness Extremity: Normal ROM, No Tenderness, No Calf Tenderness, Capillary Refill ( good capillary refill, less than two seconds ), No Swelling Extremity: Bilateral: Atraumatic, Normal Color And Temperature, Normal ROM Pulses: Left Dorsalis Pedis: Normal, Right Dorsalis Pedis: Normal Neurological/Psych: Oriented x3, Normal Speech, Normal Cognition, Other (no focal deficits) Gait: With Assistance ED Course And Treatment - Laboratory Results Result Diagrams: 08/14/16 20:21 08/14/16 20:21 ECG: Interpreted By Me, Viewed By Me ECG Rhythm: Sinus Rhythm (77), Nonspecific Changes O2 Sat by Pulse Oximetry: 98 (room air) Pulse Ox Interpretation: Normal - Radiology CXR: Interpreted by Me, Viewed By Me CXR Interpretation: Yes: Other (unchnaged from 04/22). No: Infiltrates, Fracture , Pnemothorax Progress Note: 10:30 PM Pt states she feels fine and wants to go home. Understands the risks as I've explained at length iincluding worsening condition , permanent disability and , but pt states that if she doen't feel well, she'll return. she also refused the antibiotic Medical Decision Making Medical Decision Making: Upon provider reevaluation patient is feeling better, is medically stable, and requires no further treatment in the ED at this time. Patient will be discharged home . Counseling was provided and all questions were answered regarding diagnosis and need for follow up with the referred clinic. There is agreement to discharge plan. Return if symptoms persist or worsen. Disposition Comment: accepted the pt on his service and took over the care at 10PM Counseled Patient/Family Regarding: Studies Performed, Diagnosis, Need For Followup - Disposition Referrals: [facility] [Outside] [facility] [Outside] Disposition: HOME/ ROUTINE Disposition Time: 19:28 Condition: FAIR Additional Instructions: please follow up with your doctor and do return if you have fever, chills, and just don't feel well Instructions: Back Pain (ED), Leukocytosis (DC) - POA Present On Arrival: None - Clinical Impression Clinical Impression: Chronic back pain, Leukocytosis - Scribe Statement The provider has reviewed the documentation as recorded by the Yolandeibe Abigail Murrell All medical record entries made by the Dilip were at my direction and personally dictated by me. I have reviewed the chart and agree that the record accurately reflects my personal performance of the history, physical exam, medical decision making, and the department course for this patient. I have also personally directed, reviewed, and agree with the discharge instructions and disposition.
[2016-08-14 20:27] LABS: BASO # 0.1 K/uL (0.0-0.2); BASO % 0.4 % (0.0-2.0); EOS % 0.1 % (0.0-4.0); HEMOGLOBIN 12.3 g/dL (11.0-16.0); LYMPH # 0.4 K/uL (1.0-4.3); LYMPH % 2.2 % (20.0-40.0); MEAN CELL VOLUME 91.9 fL (81.0-99.0); MEAN CORPUSCULAR HEMOGLOBIN 29.9 pg (27.0-31.0); MEAN CORPUSCULAR HGB CONC 32.5 g/dL (33.0-37.0); MEAN PLATELET VOLUME 9.8 fL (7.2-11.7); MONO # 1.1 K/uL (0.0-0.8); MONO % 6.6 % (0.0-10.0); NEUT # 15.5 K/uL (1.8-7.0); NEUT % 90.7 % (50.0-75.0); PLATELET COUNT 158 K/uL (130-400); RBC 4.12 Mil/uL (3.80-5.20); RED CELL DISTRIBUTION WIDTH 13.7 % (11.5-14.5); WHITE BLOOD COUNT 17.1 K/uL (4.8-10.8)
[2016-08-14 20:32] LABS: ALBUMIN 3.6 g/dL (3.5-5.0)
[2016-08-14 20:35] LABS: ALB/GLOB RATIO 1.2 (1.0-2.1); ALT/SGPT 65 U/L (9-52); AST/SGOT 76 U/L (14-36); BLOOD UREA NITROGEN 16 mg/dL (7-17); GFR AFRICAN-AMERICAN > 60; GFR NON-AFRICAN AMERICAN > 60
[2016-08-14 20:36] LABS: CALCIUM 8.6 mg/dl (8.6-10.4)
[2016-08-14 20:38] LABS: PROTHROMBIN TIME 11.6 SECONDS (9.7-12.2)
[2016-08-14 21:14] LABS: LYMPHOCYTE 4 % (20-40); MONOCYTE 3 % (0-10); NEUTROPHIL 93 % (50-75); PLATELET ESTIMATE NORMAL (NORMAL); TOTAL CELLS COUNTED 100
--- NOTE | 2016-08-14 21:22 | CT ---
EXAM: CT Lumbar Spine Without Intravenous Contrast CLINICAL HISTORY: 71 years old, female; Pain; Low back pain TECHNIQUE: Axial computed tomography images of the lumbar spine without intravenous contrast. This CT exam was performed using one or more of the following dose reduction techniques: automated exposure control, adjustment of the mA and/or kV according to patient size, and/or use of iterative reconstruction technique. Coronal and sagittal reformatted images were created and reviewed. COMPARISON: CR - LS SPINE AP/LAT 12/25/2014 9:19:29 AM FINDINGS: Vertebrae: No acute fracture. Anterior and lateral osteophytes. Mild facet osteoarthrosis within lower lumbar spine. Discs/spinal canal/neural foramina: Mild disc herniations at L4-L5, L5-S1 levels. Mild central canal stenosis or L4-L5 level. Neuroforaminal narrowing at L4-L5 and L5-S1 levels. Other bones/joints: Mild degenerative changes of sacroiliac joints. Soft tissues: Unremarkable. Vasculature: Minimal atherosclerotic disease. Gallbladder and bile ducts: Cholecystectomy. IMPRESSION: 1. No fracture. 2. If back pain persists, consider MRI for further evaluation. 3. Incidental/non-acute findings are described above.
[2016-08-14 21:53] LABS: SQUAMOUS EPITHIAL 2 /hpf (0-5); URINE BILIRUBIN NEGATIVE (NEGATIVE); URINE BLOOD NEGATIVE (NEGATIVE); URINE CLARITY Clear (Clear); URINE COLOR Yellow (YELLOW); URINE GLUCOSE (UA) NORMAL (Normal); URINE LEUKOCYTE ESTERASE NEG Leu/uL (Negative); URINE NITRATE NEGATIVE (NEGATIVE); URINE PROTEIN NEGATIVE (NEGATIVE); URINE UROBILINOGEN NORMAL mg/dL (0.2-1.0)
[2016-08-14] MEDS ORDERED: Piperacillin/Tazobact 3.375 gm 100 ML IVPB STA (22:26)
[2016-08-14 22:43] VITALS: BP 140/83; PULSE 84; RESP 16; TEMP 98.5; O2SAT 99
--- NOTE | 2016-08-15 08:57 | RAD ---
PROCEDURE: CHEST RADIOGRAPH, 1 VIEW HISTORY: Shortness of breath COMPARISON: 04/11/2016 FINDINGS: LUNGS: Biapical pleural thickening with upper lobe granulomatous changes. Nodular consolidation at the right lung apex may represent productive change at the end of the 1st rib. Mild venous congestion. Elevated right hemidiaphragm. Bilateral hilar prominence. PLEURA: No pneumothorax or pleural fluid seen. CARDIOVASCULAR: Cardiomegaly. OSSEOUS STRUCTURES: Postsurgical changes in the right humerus. VISUALIZED UPPER ABDOMEN: Normal. OTHER FINDINGS: None. IMPRESSION: Biapical pleural thickening with upper lobe granulomatous changes. Nodular consolidation at the right lung apex may represent productive change at the end of the 1st rib. Mild venous congestion. Elevated right hemidiaphragm. Bilateral hilar prominence.
--- NOTE | 2016-08-17 11:06 | CARD ---
APPROVED REPORT EKG Measurement Heart [id number] <Conclusion> Normal sinus rhythm Nonspecific ST and T wave abnormality Abnormal ECG
== END 2016-08-15 00:17 | disposition home or self-care (01) ==
LOC: C.ER 18:35
DX: M54.5 Low back pain (principal); G89.29 Other chronic pain; D72.829 Elevated white blood cell count, unspecified

== ENCOUNTER 2017-02-02 14:29 | Inpatient (IN) | payer MEDICARE, OTHER ==
[2017-02-02 14:30] VITALS: BMI 30.4
[2017-02-02 16:19] LABS: BASO # 0.1 K/uL (0.0-0.2); BASO % 0.9 % (0.0-2.0); EOS # 0.1 K/uL (0.0-0.7); EOS % 0.7 % (0.0-4.0); HEMOGLOBIN 13.5 g/dL (11.0-16.0); LYMPH # 1.1 K/uL (1.0-4.3); LYMPH % 14.7 % (20.0-40.0); MEAN CELL VOLUME 93.5 fL (81.0-99.0); MEAN CORPUSCULAR HEMOGLOBIN 31.3 pg (27.0-31.0); MEAN CORPUSCULAR HGB CONC 33.5 g/dL (33.0-37.0); MEAN PLATELET VOLUME 9.4 fL (7.2-11.7); MONO % 12.9 % (0.0-10.0); NEUT # 5.4 K/uL (1.8-7.0); NEUT % 70.8 % (50.0-75.0); RBC 4.32 Mil/uL (3.80-5.20); RED CELL DISTRIBUTION WIDTH 14.4 % (11.5-14.5); WHITE BLOOD COUNT 7.6 K/uL (4.8-10.8)
[2017-02-02 16:30] LABS: PROTHROMBIN TIME 11.3 SECONDS (9.7-12.2)
[2017-02-02 16:37] LABS: CALCIUM 8.1 mg/dl (8.6-10.4); GFR AFRICAN-AMERICAN > 60; GFR NON-AFRICAN AMERICAN > 60
[2017-02-02 16:38] LABS: ALB/GLOB RATIO 1.1 (1.0-2.1); ALBUMIN 3.9 g/dL (3.5-5.0); ALT/SGPT 27 U/L (9-52); AST/SGOT 44 U/L (14-36); BLOOD UREA NITROGEN 20 mg/dL (7-17)
--- NOTE | 2017-02-02 16:51 | CT ---
PROCEDURE: CT HEAD WITHOUT CONTRAST. HISTORY: r/o ICH COMPARISON: Noncontrast head CT performed 02/04/15 TECHNIQUE: Axial computed tomography images were obtained through the head/brain without intravenous contrast. Radiation dose: Total exam DLP = 919.40 mGy-cm. This CT exam was performed using one or more of the following dose reduction techniques: Automated exposure control, adjustment of the mA and/or kV according to patient size, and/or use of iterative reconstruction technique. FINDINGS: HEMORRHAGE: No intracranial hemorrhage. BRAIN: Diffuse atrophy with prominence of the ventricles and sulci noted. No mass effect or edema. Intracranial atherosclerosis. Mild scattered nonspecific white matter changes. The pizarro-white matter differentiation appears otherwise intact. Please note that MRI with diffusion imaging is more sensitive in the detection of acute ischemic event. VENTRICLES: No hydrocephalus. CALVARIUM: Unremarkable. PARANASAL SINUSES: Unremarkable as visualized. No significant inflammatory changes. MASTOID AIR CELLS: Unremarkable as visualized. No inflammatory changes. OTHER FINDINGS: Partial opacification of the left external auditory canal, likely cerumen. IMPRESSION: No acute intracranial pathology identified. Incidental findings as above.
[2017-02-02] MEDS: Sodium Chloride 0.9% 1,000 ML IV SCH ×2 (17:00→20:28)
[2017-02-02 17:03] LABS: SQUAMOUS EPITHIAL < 1 /hpf (0-5); URINE BACTERIA MANY (<OCC); URINE BILIRUBIN NEGATIVE (NEGATIVE); URINE BLOOD 1+ (NEGATIVE); URINE CLARITY Hazy (Clear); URINE COLOR Yellow (YELLOW); URINE GLUCOSE (UA) NORMAL (Normal); URINE LEUKOCYTE ESTERASE 3+ Leu/uL (Negative); URINE NITRATE POSITIVE (NEGATIVE); URINE PROTEIN NEGATIVE (NEGATIVE); URINE UROBILINOGEN NORMAL mg/dL (0.2-1.0)
[2017-02-02] MEDS ORDERED: Sodium Chloride 0.9% 1,000 ML ONE (17:04)
--- NOTE | 2017-02-02 17:06 | RAD ---
PROCEDURE: CHEST RADIOGRAPH, 1 VIEW HISTORY: r/o infiltrate COMPARISON: 08/14/2016 FINDINGS: LUNGS: Clear shallow lung volumes. PLEURA: No pneumothorax or pleural fluid seen. CARDIOVASCULAR: Mild cardiomegaly and similar OSSEOUS STRUCTURES: Partially visualized right shoulder hemiarthroplasty -similar VISUALIZED UPPER ABDOMEN: Normal. OTHER FINDINGS: None. IMPRESSION: No interval pathology noted. Specifically no pulmonary infiltrate seen
--- NOTE | 2017-02-02 17:18 | CT ---
CT orbits without IV contrast Indication: Rule out fracture Comparison: Noncontrast head CT performed the same day. Technique: Axial computed tomography images were obtained of the orbits without the use of intravenous contrast. Coronal and sagittal reformatted images were generated and reviewed. This CT exam was performed using 1 or more of the falling dose reduction techniques: Automated exposure control, adjustment of the MAA and/or kV according to patient size, and/or use of iterative reconstruction technique. Radiation dose: Total exam DLP = 780.22 mGy-cm. Findings: Streak artifact from dental hardware. The facial bones appear intact without acute displaced fracture identified. The orbits appear unremarkable. The temporomandibular joints are located. The mastoid air cells appear clear. The paranasal sinuses appear clear. No air-fluid levels identified. Please note sagittal views demonstrate oblique lucency involving the inferior aspect of C2 which is suspected to reflect degenerative changes and possible vascular groove however nondisplaced fracture cannot be entirely excluded. Osseous demineralization limits evaluation. Correlate clinically. MRI of the cervical spine may be considered for further evaluation. Impression: The orbits appear intact. Please note sagittal views demonstrate oblique lucency involving the inferior aspect of C2 which is suspected to reflect degenerative changes and possible vascular groove however nondisplaced fracture cannot be entirely excluded. Osseous demineralization limits evaluation. Correlate clinically. MRI of the cervical spine may be considered for further evaluation. Findings discussed with Dr. Walton on 02/02/17 at 5:15 p.m.
--- NOTE | 2017-02-02 18:06 | CP.PCM.HP ---
<Austin Goodman - Last Filed: 02/02/17 19:11> History of Present Illness - History of Present Illness History of Present Illness: CC: "I've been getting lightheaded" HPI: Mrs Joseph is a 71 year old legally blind female with a PMHx of AFib, HTN, COPD, Anxiety/Depression, who was brought in by her homemaker for a fall that occurred outside her home. 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 She complains of neck pain located posteriorly, she says rotating her head left or right causes pain, however she better tolerates flexion and extension. She denies losing consciousness, fever, cough, or neck stiffness. She states the past few days she's been feeling lightheaded and has had a decreased appetite. She also endorsed urinary frequency in the past few days. She denies chest pain, abdominal pain, dysuria, shortness of breath. PMD: Dr Darden Manager Car: Dr Gil Molina PMHx: HTN, AFib, COPD, Anxiety, Depression, Degenerative Bone Disease PSHx: cholecystectomy, R shoulder with prosthetic device, eye surgery, hemorrhoidectomy Allergies: Sulfa drugs - rash Home medications: long medication list - see MAR FamHx: Father - pancreatic CA, Mother - heart problems, Brother - DM SocialHx: lives alone with homemaker 4x per week for 4 hours per day; former smoker - quit in the 80s; denies illicit drug use or alcohol Present on Admission - Present on Admission Any Indicators Present on Admission: No Review of Systems - Constitutional Constitutional: Weakness. absent: Chills, Fever - EENT Additional comments: Legally blind - uses a white cane to assist with ambulation - Cardiovascular Cardiovascular: Lightheadedness. absent: Chest Pain - Respiratory Respiratory: absent: Cough, Dyspnea - Gastrointestinal Gastrointestinal: absent: Abdominal Pain - Genitourinary Genitourinary: Urinary Frequency. absent: Dysuria - Musculoskeletal Musculoskeletal: Back Pain - Integumentary Integumentary: absent: Bleeding Lesions - Neurological Neurological: absent: Syncope 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) - RENAL Hx Chronic Kidney Disease: No - ENDOCRINE/METABOLIC Hx Endocrine Disorders: No - HEMATOLOGICAL/ONCOLOGICAL Hx Human Immunodeficiency Virus (HIV): No - INTEGUMENTARY Hx Dermatological Problems: No - MUSCULOSKELETAL/RHEUMATOLOGICAL Hx Arthritis: Yes Hx Fractures: Yes (Right Shoulder) Hx Osteoporosis: Yes - GASTROINTESTINAL Hx Gastritis: Yes - GENITOURINARY/GYNECOLOGICAL Hx Sexually Transmitted Disorders: No - PSYCHIATRIC Hx Anxiety: Yes Hx Depression: Yes Hx Substance Use: No - SURGICAL HISTORY Hx Appendectomy: Yes Hx Cholecystectomy: Yes - ANESTHESIA Hx Anesthesia: Yes Hx Anesthesia Reactions: No Hx Malignant Hyperthermia: No Meds Allergies/Adverse Reactions: Allergies Allergy/AdvReac Type Severity Reaction Status Date / Time Sulfa (Sulfonamide Allergy ANAPHYLAXIS Verified 02/02/17 14:46 Antibiotics) sulfasalazine Allergy ITCHING Verified 02/02/17 14:46 Physical Exam - Constitutional Appears: Non-toxic, Unkempt, Chronically Ill - Head Exam Head Exam: absent: ATRAUMATIC, NORMAL INSPECTION Additional comments: 3cm diameter laceration on forehead - Eye Exam Pupil Exam: Fixed, Miosis Additional comments: legally blind - uses white cane to assist with ambulation - ENT Exam ENT Exam: Mucous Membranes Moist - Neck Exam Neck exam: Positive for: Tenderness Additional comments: Limited ROM in rotation 2/2 to pain Point tenderness at C2 - Respiratory Exam Respiratory Exam: Decreased Breath Sounds. absent: Chest Wall Tenderness, Rales , Rhonchi, Wheezes - Cardiovascular Exam Cardiovascular Exam: Irregular Rhythm, +S1, +S2. absent: Tachycardia, JVD, Systolic Murmur - GI/Abdominal Exam GI & Abdominal Exam: Normal Bowel Sounds, Soft. absent: Tenderness - Extremities Exam Extremities exam: Positive for: full ROM Additional comments: motor strength 5/5 in all extremities - Neurological Exam Neurological exam: Alert, CN II-XII Intact, Oriented x3, Reflexes Normal Additional comments: sensation intact in all extremities and face - Skin Skin Exam: Intact, Warm Results - Vital Signs Recent Vital Signs: Last Vital Signs Temp 98.8 F 1228/17 14:45 Pulse 89 02/02/17 17:07 Resp 16 02/02/17 17:07 BP 136/68 02/02/17 17:07 Pulse Ox 98 02/02/17 17:07 - Labs Result Diagrams: 02/02/17 16:08 02/02/17 16:08 Labs: Laboratory Results - last 24 hr 02/02/17 02/02/17 02/02/17 16:08 16:08 16:08 WBC 7.6 D RBC 4.32 Hgb 13.5 Hct 40.4 MCV 93.5 MCH 31.3 H MCHC 33.5 RDW 14.4 Plt Count 207 MPV 9.4 Neut % (Auto) 70.8 Lymph % (Auto) 14.7 L [place] % (Auto) 12.9 H Eos % (Auto) 0.7 Baso % (Auto) 0.9 Neut # 5.4 Lymph # 1.1 [place] # 1.0 H Eos # 0.1 Baso # 0.1 PT 11.3 INR 1.0 APTT 31 Sodium 139 Potassium 4.9 Chloride 101 Carbon Dioxide 29 Anion Gap 14 BUN 20 H Creatinine 0.7 Est GFR ( Amer) > 60 Est GFR (Non-Af Amer) > 60 Random Glucose 100 Calcium 8.1 L Total Bilirubin 1.0 AST 44 H ALT 27 Alkaline Phosphatase 131 H Troponin I < 0.0120 Total Protein 7.3 Albumin 3.9 Globulin 3.4 Albumin/Globulin Ratio 1.1 Urine Color Urine Clarity Urine pH Ur Specific [place] Urine Protein Urine Glucose (UA) Urine Ketones Urine Blood Urine Nitrate Urine Bilirubin Urine Urobilinogen Ur Leukocyte Esterase Urine WBC (Auto) Urine RBC (Auto) Ur Squamous Epith Cells Ur Transition Epith Cell Urine Bacteria 02/02/17 16:46 WBC RBC Hgb Hct MCV MCH MCHC RDW Plt Count MPV Neut % (Auto) Lymph % (Auto) [place] % (Auto) Eos % (Auto) Baso % (Auto) Neut # Lymph # [place] # Eos # Baso # PT INR APTT Sodium Potassium Chloride Carbon Dioxide Anion Gap BUN Creatinine Est GFR ( Amer) Est GFR (Non-Af Amer) Random Glucose Calcium Total Bilirubin AST ALT Alkaline Phosphatase Troponin I Total Protein Albumin Globulin Albumin/Globulin Ratio Urine Color Yellow Urine Clarity Hazy Urine pH 7.0 Ur Specific Ferr[place] 1.008 Urine Protein Negative Urine Glucose (UA) Normal Urine Ketones Negative Urine Blood 1+ H Urine Nitrate Positive H Urine Bilirubin Negative Urine Urobilinogen Normal Ur Leukocyte Esterase 3+ H Urine WBC (Auto) 234 H Urine RBC (Auto) 6 H Ur Squamous Epith Cells < 1 Ur Transition Epith Cell < 1 Urine Bacteria Many H Assessment & Plan (1) Status post fall Assessment and Plan: Potential C2 fracture Neurology consult, Dr Shah Neurosurgery consult, Dr Dsouza MRI can not be done 03/10 to patient with right shoulder metal prosthetics Apply cervical collar HOLD home med Aspirin 81mg due to recent head trauma Imaging: CT orbits w/o IV contrast 02/02: The orbits appear intact. Please note sagittal views demonstrate oblique lucency involving the inferior aspect of C2 which is suspected to reflect degenerative changes and possible vascular groove however nondisplaced fracture cannot be entirely excluded. Osseous demineralization limits evaluation. Correlate clinically. MRI of the cervical spine may be considered for further evaluation. CT head w/o contrast 02/02: No acute intracranial pathology identified. Incidental findings as above. F/U Cervical spine w/o contrast 02/02 Status: Acute (2) Urinary tract infection Assessment and Plan: + Urinary Frequency; lightheaded; afebrile; no leukocytosis UA 02/02: Many bacteria, 1+ blood, +Nitrate, 3+ leukocyte esterase, wbc 234, wbc 6 F/U Blood culture, F/U Urine culture Rocephin 1g IVPB QD NS at 100 cc/hr Status: Acute (3) Anxiety Assessment and Plan: con't home med xanax 1g PO QD Status: Acute (4) Depression Assessment and Plan: con't home med bupropion XL 300mg PO QD Status: Acute (5) Atrial fibrillation Assessment and Plan: Rate controlled con't home med metoprolol succinate 50mg PO QD Status: Chronic (6) Hypertension Assessment and Plan: BP well controlled con't home med isosorbide mononitrate 60mg PO QD Status: Chronic (7) Dementia Assessment and Plan: cont' home med Memantine 10mg PO QD Status: Acute (8) Prophylactic antibiotic Assessment and Plan: Protonix 40mg PO QD SCDs HOLD VTE therapy due to recent head trauma Heart healthy diet Status: Acute <Juan Larose - Last Filed: 02/03/17 07:20> Results - Vital Signs Recent Vital Signs: Last Vital Signs Temp 98.0 F 02/03/17 04:00 Pulse 89 02/03/17 04:00 Resp 20 02/03/17 04:00 BP 135/77 02/03/17 04:00 Pulse Ox 95 02/03/17 04:00 - Labs Result Diagrams: 02/02/17 16:08 02/02/17 16:08 Labs: Laboratory Results - last 24 hr 02/02/17 02/02/17 02/02/17 16:08 16:08 16:08 WBC 7.6 D RBC 4.32 Hgb 13.5 Hct 40.4 MCV 93.5 MCH 31.3 H MCHC 33.5 RDW 14.4 Plt Count 207 MPV 9.4 Neut % (Auto) 70.8 Lymph % (Auto) 14.7 L [place] % (Auto) 12.9 H Eos % (Auto) 0.7 Baso % (Auto) 0.9 Neut # 5.4 Lymph # 1.1 [place] # 1.0 H Eos # 0.1 Baso # 0.1 PT 11.3 INR 1.0 APTT 31 Sodium 139 Potassium 4.9 Chloride 101 Carbon Dioxide 29 Anion Gap 14 BUN 20 H Creatinine 0.7 Est GFR ( Amer) > 60 Est GFR (Non-Af Amer) > 60 Random Glucose 100 Calcium 8.1 L Total Bilirubin 1.0 AST 44 H ALT 27 Alkaline Phosphatase 131 H Troponin I < 0.0120 Total Protein 7.3 Albumin 3.9 Globulin 3.4 Albumin/Globulin Ratio 1.1 Urine Color Urine Clarity Urine pH Ur Specific [place] Urine Protein Urine Glucose (UA) Urine Ketones Urine Blood Urine Nitrate Urine Bilirubin Urine Urobilinogen Ur Leukocyte Esterase Urine WBC (Auto) Urine RBC (Auto) Ur Squamous Epith Cells Ur Transition Epith Cell Urine Bacteria 02/02/17 16:46 WBC RBC Hgb Hct MCV MCH MCHC RDW Plt Count MPV Neut % (Auto) Lymph % (Auto) [place] % (Auto) Eos % (Auto) Baso % (Auto) Neut # Lymph # [place] # Eos # Baso # PT INR APTT Sodium Potassium Chloride Carbon Dioxide Anion Gap BUN Creatinine Est GFR ( Amer) Est GFR (Non-Af Amer) Random Glucose Calcium Total Bilirubin AST ALT Alkaline Phosphatase Troponin I Total Protein Albumin Globulin Albumin/Globulin Ratio Urine Color Yellow Urine Clarity Hazy Urine pH 7.0 Ur Specific [place] 1.008 Urine Protein Negative Urine Glucose (UA) Normal Urine Ketones Negative Urine Blood 1+ H Urine Nitrate Positive H Urine Bilirubin Negative Urine Urobilinogen Normal Ur Leukocyte Esterase 3+ H Urine WBC (Auto) 234 H Urine RBC (Auto) 6 H Ur Squamous Epith Cells < 1 Ur Transition Epith Cell < 1 Urine Bacteria Many H Attending/Attestation - Attestation I have personally seen and examined this patient.: Yes I have fully participated in the care of the patient.: Yes I have reviewed all pertinent clinical information: Yes Notes (Text): 02/03/17 07:17 Medical attending: Patient was seen and examined by me and also the resident, reviewed the above note by the resident and agree with above. We saw the patient together ER bed 4. This is a 71-year-old female who was brought to the hospital with heel sander rubber after she had fallen. From what she explains to us she was trying to get into her house dropped her keys when she leaned down she lost balance and fell striking her forehead. And she also hurt her neck quite significant patient says. She does have a scalpel laceration that was Dermabond by the ER by the time we came down She does have a history of atrial fibrillation, she is also blind and cannot see she is reliant on others for help. She also has a history of hypertension and COPD as well. Because she is blind in has difficulty ambulating she was not placed on anticoagulation. The patient insists to us that she did not have palpitations chest pain or shortness of breath prior to her fall, but that she simply lost her balance and fell. On examination the patient reported a lot of tenderness in the cervical spine area, she was not able to flex or extend her head, and when we asked if she was able to rotate her head left or right, she said that she was not able to due to the pain. The CAT scan done by the ER was a head CT which suggested that there could be some sort of damage to the C2 cervical spine. However that report also added that this was not an optimal study. Regardless we still are going to use a soft cervical collar at this moment. The initial CT done by the ER suggested getting an MRI however the patient explains to us that she has a lot of metal in her body that she is not able to get an MRI. It appears that she has a rotator cuff repair with metal rods. So we put in orders for a CT of the cervical spine. We will get a neurosurgery evaluation and neurology evaluation. On exam she was able to squeeze both my hands bilaterally. She is not able to raise right arm high - she says from rotator cuff injury. With reguards to her legs she is able to bend her bilaterally knees on exam. She was able to raise both legs as well for about 5 seconds but then drifts downward - she reports from pain. With regards to her atrial fibrillation regarding continue to try to do rate control. She has not been on anticoagulation due to risk for falls she is on aspirin. Juan Larose
--- NOTE | 2017-02-02 18:20 | C.PDOC ---
History Of Present Illness 71 year old legally blind female presents to the ED accompanied by her radiology rn is brought in for evaluation of syncopal episode. 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 Patient denies symptoms prior to passing out but states she has been feeling slightly dizzy and has not been eating for the past couple of days. Patient and her care clinician are both poor historians. patient denies fever , cough, neck stiffness. - HPI Time Seen by Provider: 02/02/17 15:30 Chief Complaint (Nursing): Trauma History Per: Patient, Other (Upper Shaper) History/Exam Limitations: no limitations Onset/Duration Of Symptoms: Hrs Injury Occurred (Timing): Hours Ago: Location Of Injury: Anterior: Head (forehead lac) Severity: None Associated Symptoms: Dizziness Recent travel outside of the [place]: No Additional History Per: Patient - Fall Fall:Prior To Injury: Passed Out Past Medical History Reviewed: Historical Data, Nursing Documentation, Vital Signs Vital Signs: Last Vital Signs Temp 98.8 F 02/02/17 14:45 Pulse 89 02/02/17 17:07 Resp 16 02/02/17 17:07 BP 136/68 02/02/17 17:07 Pulse Ox 98 02/02/17 18:26 - Medical History PMH: Anxiety, Arthritis, Asthma, Atrial Fibrillation, Cardia Arrhythmia, COPD, Depression, Emphysema, Fractures (Right Shoulder), Gastritis, Gastrointestinal Ulcer, HTN, Osteoporosis Denies: HIV, Chronic Kidney Disease, Seizures, Sexually Transmitted Disease Surgical History: Appendectomy, Cholecystectomy, Endoscopy - [facility] Procedures CLOSED ENDOSCOPIC BIOPSY OF LARGE INTESTINE (11/26/13) ESOPHAGOGASTRODUODENOSCOPY [EGD] W/CLOSED BIOPSY (11/28/13) Family History: States: Unknown Family Hx - Social History Hx Tobacco Use: No Hx Alcohol Use: No Hx Substance Use: No - Immunization History Hx Tetanus Toxoid Vaccination: No Hx Influenza Vaccination: No Hx Pneumococcal Vaccination: No Review Of Systems Constitutional: Negative for: Fever, Chills Cardiovascular: Negative for: Chest Pain, Palpitations Respiratory: Negative for: Cough, Shortness of Breath Gastrointestinal: Negative for: Nausea, Vomiting, Abdominal Pain Skin: Negative for: Rash Neurological: Negative for: Weakness, Numbness, Headache Physical Exam - Physical Exam Appears: Non-toxic, No Acute Distress Skin: Normal Color, Warm, Dry Head: Normacephalic, Laceration (1 cm circular forehead, no active bleeding) Eye(s): bilateral: Normal Inspection Nose: No Discharge, No Deformity Oral Mucosa: Moist Neck: Normal ROM, Supple Chest: Symmetrical Cardiovascular: Rhythm Regular, No Murmur Respiratory: Normal Breath Sounds, No Rales, No Rhonchi, No Wheezing Gastrointestinal/Abdominal: Soft, No Tenderness Extremity: Normal ROM, No Pedal Edema, No Calf Tenderness, No Deformity, No Swelling Neurological/Psych: Oriented x3, Normal Speech, Normal Cognition ED Course And Treatment - Laboratory Results Result Diagrams: 02/02/17 16:08 02/02/17 16:08 ECG: Interpreted By Me, Viewed By Me ECG Rhythm: Sinus Rhythm Interpretation Of ECG: Normal axis, normal intervals Rate From EC O2 Sat by Pulse Oximetry: 98 (On RA) Pulse Ox Interpretation: Normal - Radiology CXR: Interpreted by Me, Viewed By Me CXR Interpretation: Yes: Other (No interval pathology noted. Specifically no pulmonary infiltrate seen). No: No Acute Disease, Infiltrates - CT Scan/US CT head Other Rad Studies (CT/US): Read By Radiologist, Radiology Report Reviewed CT/US Interpretation: FINDINGS: HEMORRHAGE: No intracranial hemorrhage. BRAIN : Diffuse atrophy with prominence of the ventricles and sulci noted. No mass effect or edema. Intracranial atherosclerosis. Mild scattered nonspecific white matter changes. The pizarro-white matter differentiation appears otherwise intact. Please note that MRI with diffusion imaging is more sensitive in the detection of acute ischemic event. VENTRICLES: No hydrocephalus. CALVARIUM: Unremarkable. PARANASAL SINUSES: Unremarkable as visualized. No significant inflammatory changes. MASTOID AIR CELLS: Unremarkable as visualized. No inflammatory changes. OTHER FINDINGS: Partial opacification of the left external auditory canal, likely cerumen. IMPRESSION: No acute intracranial pathology identified. Incidental findings as above. CT orbits Other Rad Studies (CT/US): Read By Radiologist, Radiology Report Reviewed CT/US Interpretation: Findings: Streak artifact from dental hardware. The facial bones appear intact without acute displaced fracture identified. The orbits appear unremarkable. The temporomandibular joints are located. The mastoid air cells appear clear. The paranasal sinuses appear clear. No air- fluid levels identified. Please note sagittal views demonstrate oblique lucency involving the inferior aspect of C2 which is suspected to reflect degenerative changes and possible vascular groove however nondisplaced fracture cannot be entirely excluded. Osseous demineralization limits evaluation. Correlate clinically. MRI of the cervical spine may be considered for further evaluation. Impression: The orbits appear intact. Please note sagittal views demonstrate oblique lucency involving the inferior aspect of C2 which is suspected to reflect degenerative changes and possible vascular groove however nondisplaced fracture cannot be entirely excluded. Osseous demineralization limits evaluation. Correlate clinically. MRI of the cervical spine may be considered for further evaluation. Findings discussed with Dr. Walton on at 5:15 p.m. Medical Decision Making Medical Decision Making: Impression : fall Plan: * EKG * CT head * Blood work * IV fluids * UA * Rocephin Disposition - Disposition Disposition Time: 16:00 Condition: FAIR - Clinical Impression Clinical Impression: Syncope - Scribe Statement The provider has reviewed the documentation as recorded by the Scribe Aaron Pierce All medical record entries made by the Scribe were at my direction and personally dictated by me. I have reviewed the chart and agree that the record accurately reflects my personal performance of the history, physical exam, medical decision making, and the department course for this patient. I have also personally directed, reviewed, and agree with the discharge instructions and disposition.
--- NOTE | 2017-02-02 21:06 | CT ---
EXAM: CT Cervical Spine Without Intravenous Contrast EXAM DATE/TIME: 02/02/2017 6:31 PM CLINICAL HISTORY: 71 years old, female; Injury or trauma; Fall; Initial encounter; Swelling; Additional info: Fall; CT suspect potential fracture at c2; TECHNIQUE: Axial computed tomography images of the cervical spine without intravenous contrast. All CT scans at this facility use one or more dose reduction techniques, viz.: automated exposure control; ma/kV adjustment per patient size (including targeted exams where dose is matched to indication; i.e. head); or iterative reconstruction technique. Coronal and sagittal reformatted images were created and reviewed. COMPARISON: There are no prior studies for comparison. FINDINGS: Vertebrae: There is maintenance of the cervical lordosis. There is no prevertebral soft tissue swelling. Bony structures are diffusely osteopenic. There is multilevel degenerative change. There are no fractures or alignment abnormalities. There is narrowing of the predental space. There is disc space narrowing greatest at C5/C6 and C6/C7. Facet joints align anatomically. Spinous processes align in the expected fashion. Discs/spinal canal/neural foramina: There is debris in the left external auditory canal. Soft tissues: See above. Dental: Streak artifact from dental fillings degrades image quality. Lung apices: Lung apices are clear. Thyroid: Thyroid is heterogeneous IMPRESSION: Osteopenia degenerative change, no fracture Additional findings as described above.
[2017-02-03] MEDS: Vitamins A & D Oint UD Foilpak TOP PRN ×2 (00:43→13:17)
[2017-02-03 07:15] LABS: BASO % 0.4 % (0.0-2.0); EOS % 0.2 % (0.0-4.0); HEMOGLOBIN 12.8 g/dL (11.0-16.0); LYMPH # 1.2 K/uL (1.0-4.3); LYMPH % 12.8 % (20.0-40.0); MEAN CELL VOLUME 93.2 fL (81.0-99.0); MEAN CORPUSCULAR HEMOGLOBIN 31.8 pg (27.0-31.0); MEAN CORPUSCULAR HGB CONC 34.1 g/dL (33.0-37.0); MEAN PLATELET VOLUME 9.7 fL (7.2-11.7); MONO # 1.1 K/uL (0.0-0.8); MONO % 12.2 % (0.0-10.0); NEUT # 6.8 K/uL (1.8-7.0); NEUT % 74.4 % (50.0-75.0); RBC 4.04 Mil/uL (3.80-5.20); RED CELL DISTRIBUTION WIDTH 14.6 % (11.5-14.5); WHITE BLOOD COUNT 9.2 K/uL (4.8-10.8)
--- NOTE | 2017-02-03 07:40 | CP.PCM.CON ---
History of Present Illness - History of Present Illness History of Present Illness: CONSULT DICTATED POST CONCUSSION I DOUBT CERVICAL PATHOLOGY NO MYELOPATHY MRI/EEG 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) - RENAL Hx Chronic Kidney Disease: No - ENDOCRINE/METABOLIC Hx Endocrine Disorders: No - HEMATOLOGICAL/ONCOLOGICAL Hx Blood Disorders: No - INTEGUMENTARY Hx Dermatological Problems: No - MUSCULOSKELETAL/RHEUMATOLOGICAL Hx Musculoskeletal Disorders: Yes Hx Arthritis: Yes Hx Falls: Yes Hx Fractures: Yes (Right Shoulder) Hx Osteoporosis: Yes - GASTROINTESTINAL Hx Gastrointestinal Disorders: Yes Hx Gastritis: Yes - GENITOURINARY/GYNECOLOGICAL Hx Genitourinary Disorders: No - PSYCHIATRIC Hx Psychophysiologic Disorder: Yes Hx Anxiety: Yes Hx Depression: Yes Hx Substance Use: No - SURGICAL HISTORY Hx Surgeries: Yes Hx Appendectomy: Yes Hx Cholecystectomy: Yes - ANESTHESIA Hx Anesthesia: Yes Hx Anesthesia Reactions: No Hx Malignant Hyperthermia: No Has any member of the family had a problem w/ anesthesia?: No Meds Allergies/Adverse Reactions: Allergies Allergy/AdvReac Type Severity Reaction Status Date / Time Sulfa (Sulfonamide Allergy ANAPHYLAXIS Verified 02/02/17 14:46 Antibiotics) sulfasalazine Allergy ITCHING Verified 02/02/17 14:46 - Medications Medications: Current Medications Alprazolam (Xanax) 1 mg PO TID [facility] Bupropion HCl (Wellbutrin Xl) 300 mg PO DAILY [facility] Sodium Chloride (Sodium Chloride 0.9%) 1,000 mls @ 100 mls/hr IV .Q10H [facility] Last Admin: 02/02/17 20:28 Dose: 100 mls/hr Ceftriaxone Sodium 1 gm/ (Sodium Chloride) 100 mls @ 100 mls/hr IVPB Q12H [facility] Last Admin: 02/03/17 06:02 Dose: 100 mls/hr Isosorbide Mononitrate (Imdur Er) 60 mg PO DAILY [facility] Memantine (Namenda) 10 mg PO DAILY [facility] Metoprolol Succinate (Toprol Xl) 50 mg PO DAILY [facility] Pantoprazole Sodium (Protonix Ec Tab) 40 mg PO DAILY [facility] Vitamin A (Vitamin A & D Oint Ud Foilpak) 1 ea TOP Q4 PRN PRN Reason: Dry skin Last Admin: 02/03/17 00:43 Dose: 1 ea Results - Vital Signs Recent Vital Signs: Last Vital Signs Temp 98.0 F 02/03/17 04:00 Pulse 89 02/03/17 04:00 Resp 20 02/03/17 04:00 BP 135/77 02/03/17 04:00 Pulse Ox 95 02/03/17 04:00 - Labs Result Diagrams: 02/03/17 07:01 02/02/17 16:08 Labs: Laboratory Results - last 24 hr 02/02/17 02/02/17 02/02/17 16:08 16:08 16:08 WBC 7.6 D RBC 4.32 Hgb 13.5 Hct 40.4 MCV 93.5 MCH 31.3 H MCHC 33.5 RDW 14.4 Plt Count 207 MPV 9.4 Neut % (Auto) 70.8 Lymph % (Auto) 14.7 L [place] % (Auto) 12.9 H Eos % (Auto) 0.7 Baso % (Auto) 0.9 Neut # 5.4 Lymph # 1.1 [place] # 1.0 H Eos # 0.1 Baso # 0.1 PT 11.3 INR 1.0 APTT 31 Sodium 139 Potassium 4.9 Chloride 101 Carbon Dioxide 29 Anion Gap 14 BUN 20 H Creatinine 0.7 Est GFR ( Amer) > 60 Est GFR (Non-Af Amer) > 60 Random Glucose 100 Calcium 8.1 L Total Bilirubin 1.0 AST 44 H ALT 27 Alkaline Phosphatase 131 H Troponin I < 0.0120 Total Protein 7.3 Albumin 3.9 Globulin 3.4 Albumin/Globulin Ratio 1.1 Urine Color Urine Clarity Urine pH Ur Specific [place] Urine Protein Urine Glucose (UA) Urine Ketones Urine Blood Urine Nitrate Urine Bilirubin Urine Urobilinogen Ur Leukocyte Esterase Urine WBC (Auto) Urine RBC (Auto) Ur Squamous Epith Cells Ur Transition Epith Cell Urine Bacteria 02/02/17 02/03/17 16:46 07:01 WBC 9.2 RBC 4.04 Hgb 12.8 Hct 37.6 MCV 93.2 MCH 31.8 H MCHC 34.1 RDW 14.6 H Plt Count 185 MPV 9.7 Neut % (Auto) 74.4 Lymph % (Auto) 12.8 L [place] % (Auto) 12.2 H Eos % (Auto) 0.2 Baso % (Auto) 0.4 Neut # 6.8 Lymph # 1.2 [place] # 1.1 H Eos # 0.0 Baso # 0.0 PT INR APTT Sodium Potassium Chloride Carbon Dioxide Anion Gap BUN Creatinine Est GFR ( Amer) Est GFR (Non-Af Amer) Random Glucose Calcium Total Bilirubin AST ALT Alkaline Phosphatase Troponin I Total Protein Albumin Globulin Albumin/Globulin Ratio Urine Color Yellow Urine Clarity Hazy Urine pH 7.0 Ur Specific [place] 1.008 Urine Protein Negative Urine Glucose (UA) Normal Urine Ketones Negative Urine Blood 1+ H Urine Nitrate Positive H Urine Bilirubin Negative Urine Urobilinogen Normal Ur Leukocyte Esterase 3+ H Urine WBC (Auto) 234 H Urine RBC (Auto) 6 H Ur Squamous Epith Cells < 1 Ur Transition Epith Cell < 1 Urine Bacteria Many H
[2017-02-03 08:07] LABS: ALB/GLOB RATIO 1.1 (1.0-2.1); ALBUMIN 3.4 g/dL (3.5-5.0); ALT/SGPT 25 U/L (9-52); AST/SGOT 26 U/L (14-36); BLOOD UREA NITROGEN 14 mg/dL (7-17); CALCIUM 7.9 mg/dl (8.6-10.4); GFR AFRICAN-AMERICAN > 60; GFR NON-AFRICAN AMERICAN > 60; MAGNESIUM 1.7 mg/dL (1.6-2.3)
[2017-02-03 08:40] LABS: MAGNESIUM 1.8 mg/dL (1.6-2.3)
[2017-02-03] MEDS: Tramadol 25 mg PO PRN ×2 (08:41→13:15)
--- NOTE | 2017-02-03 08:41 | CP.PCM.PN ---
<Abhay Berry S - Last Filed: 02/03/17 13:05> Subjective - Date & Time of Evaluation Date of Evaluation: 02/03/17 Time of Evaluation: 07:10 - Subjective Subjective: Medicine note for Dr. Larose Patient seen and examined at bedside. Patient reports neck pain stating that she is unable to turn her head. Patient denies any other acute symptoms. Objective - Vital Signs/Intake and Output Vital Signs (last 24 hours): Temp Pulse Resp BP Pulse Ox 98.0 F 89 20 121/71 99 02/03/17 08:33 02/03/17 08:33 02/03/17 08:33 02/03/17 08:33 02/03/17 08:33 Intake and Output: 02/03/17 02/03/17 06:59 18:59 Intake Total 700 Balance 700 - Medications Medications: Current Medications Alprazolam (Xanax) 1 mg PO TID [facility] Bupropion HCl (Wellbutrin Xl) 300 mg PO DAILY [facility] Gabapentin (Neurontin) 300 mg PO TID [facility] Sodium Chloride (Sodium Chloride 0.9%) 1,000 mls @ 100 mls/hr IV .Q10H [facility] Last Admin: 02/02/17 20:28 Dose: 100 mls/hr Ceftriaxone Sodium 1 gm/ (Sodium Chloride) 100 mls @ 100 mls/hr IVPB Q12H [facility] Last Admin: 02/03/17 06:02 Dose: 100 mls/hr Isosorbide Mononitrate (Imdur Er) 60 mg PO DAILY [facility] Memantine (Namenda) 10 mg PO DAILY [facility] Metoprolol Succinate (Toprol Xl) 50 mg PO DAILY [facility] Pantoprazole Sodium (Protonix Ec Tab) 40 mg PO DAILY [facility] Tramadol HCl (Ultram) 25 mg PO TID PRN PRN Reason: Pain, moderate (4-7) Vitamin A (Vitamin A & D Oint Ud Foilpak) 1 ea TOP Q4 PRN PRN Reason: Dry skin Last Admin: 02/03/17 00:43 Dose: 1 ea - Labs Labs: 02/03/17 07:01 02/03/17 07:01 PT 11.3 SECONDS (9.7-12.2) 02/02/17 16:08 INR 1.0 02/02/17 16:08 APTT 31 SECONDS (21-34) 02/02/17 16:08 - Constitutional Appears: In Acute Distress (mild), Chronically Ill - Head Exam Additional comments: laceration on forehead closed with Dermabond - Eye Exam Pupil Exam: Fixed, Miosis Additional comments: legally blind - ENT Exam ENT Exam: Mucous Membranes Moist - Neck Exam Additional comments: Soft collar in place. Limited ROM secondary to pain - Respiratory Exam Respiratory Exam: Decreased Breath Sounds. absent: Rales, Rhonchi, Wheezes - Cardiovascular Exam Cardiovascular Exam: Irregular Rhythm, +S1, +S2 - GI/Abdominal Exam GI & Abdominal Exam: Soft, Normal Bowel Sounds. absent: Tenderness - Extremities Exam Extremities Exam: absent: Pedal Edema, Tenderness - Neurological Exam Neurological Exam: Alert, Awake, Oriented x3. absent: Motor Sensory Deficit - Psychiatric Exam Psychiatric exam: Anxious - Skin Skin Exam: Dry, Warm Assessment and Plan - Assessment and Plan (Free Text) Plan: (1) Neck Pain Status post fall Assessment and Plan: Potential C2 fracture Neurology consult, Dr Shah Neurosurgery consult, Dr Dsouza MRI cannot be done 03/10 to patient with right shoulder metal prosthetics Cervical collar HOLD home med Aspirin 81mg due to recent head trauma Imaging: CT orbits w/o IV contrast 02/02: The orbits appear intact. Please note sagittal views demonstrate oblique lucency involving the inferior aspect of C2 which is suspected to reflect degenerative changes and possible vascular groove however nondisplaced fracture cannot be entirely excluded. Osseous demineralization limits evaluation. Correlate clinically. MRI of the cervical spine may be considered for further evaluation. CT head w/o contrast 02/02: No acute intracranial pathology identified. Incidental findings as above. Cervical spine w/o contrast 02/02: No fracture. Degenerative changes noted. Dr. Shah recommended carotid ultrasound, MRI, and EEG. Due to patient's metal in the right shoulder, MRI is unable to be done. Dr. Dsouza stated no neurosurgical involvement necessary. Flexerill 10 mg PO BID added 02/03 Tramadol 25 mg PO TID prn added 02/03 Gabapentin 300 mg PO TID added 02/03 PT/OT eval and treatment Status: Acute (2) Urinary tract infection Assessment and Plan: + Urinary Frequency; lightheaded; afebrile; no leukocytosis UA 02/02: Many bacteria, 1+ blood, +Nitrate, 3+ leukocyte esterase, wbc 234, wbc 6 F/U Blood culture Urine culture shows gram neg rods Rocephin 1g IVPB QD NS at 100 cc/hr Status: Acute (3) Anxiety Assessment and Plan: con't home med xanax 1 mg PO TID Status: Acute (4) Depression Assessment and Plan: con't home med bupropion XL 300mg PO QD Status: Acute (5) Atrial fibrillation Assessment and Plan: Rate controlled con't home med metoprolol succinate 50mg PO QD Status: Chronic (6) Hypertension Assessment and Plan: BP well controlled con't home med isosorbide mononitrate 60mg PO QD Status: Chronic (7) Dementia Assessment and Plan: cont' home med Memantine 10mg PO QD Status: Acute (8) Prophylactic antibiotic Assessment and Plan: Protonix 40mg PO QD SCDs HOLD VTE therapy due to recent head trauma Heart healthy diet Status: Acute Disposition: Patient requested to be placed under the care of her PMD Dr. Darden. Call made out to her office, but she is currently ill and resting at home. She requests that the hospitalist or physician stock preparation operator care for her patient. So she will remain on our service. Case DW Dr. Lachelle Berry PGY-1 <Juan Larose H - Last Filed: 02/03/17 14:25> Objective - Vital Signs/Intake and Output Vital Signs (last 24 hours): Temp Pulse Resp BP Pulse Ox 98.0 F 89 20 121/71 99 02/03/17 08:33 02/03/17 08:33 02/03/17 08:33 02/03/17 08:33 02/03/17 08:33 Intake and Output: 02/03/17 02/03/17 06:59 18:59 Intake Total 700 Balance 700 - Medications Medications: Current Medications Alprazolam (Xanax) 1 mg PO TID [facility] Last Admin: 02/03/17 13:16 Dose: 1 mg Bupropion HCl (Wellbutrin Xl) 300 mg PO DAILY [facility] Last Admin: 02/03/17 09:17 Dose: 300 mg Cyclobenzaprine HCl (Flexeril) 10 mg PO BID [facility] Gabapentin (Neurontin) 300 mg PO TID [facility] Last Admin: 02/03/17 13:16 Dose: 300 mg Sodium Chloride (Sodium Chloride 0.9%) 1,000 mls @ 100 mls/hr IV .Q10H [facility] Last Admin: 02/03/17 13:31 Dose: Not Given Ceftriaxone Sodium 1 gm/ (Sodium Chloride) 100 mls @ 100 mls/hr IVPB Q12H [facility] Last Admin: 02/03/17 06:02 Dose: 100 mls/hr Isosorbide Mononitrate (Imdur Er) 60 mg PO DAILY [facility] Last Admin: 02/03/17 09:18 Dose: 60 mg Memantine (Namenda) 10 mg PO DAILY [facility] Last Admin: 02/03/17 09:17 Dose: 10 mg Metoprolol Succinate (Toprol Xl) 50 mg PO DAILY [facility] Last Admin: 02/03/17 09:17 Dose: 50 mg Pantoprazole Sodium (Protonix Ec Tab) 40 mg PO DAILY [facility] Last Admin: 02/03/17 09:17 Dose: 40 mg Tramadol HCl (Ultram) 25 mg PO TID PRN PRN Reason: Pain, moderate (4-7) Last Admin: 02/03/17 13:15 Dose: 25 mg Vitamin A (Vitamin A & D Oint Ud Foilpak) 1 ea TOP Q4 PRN PRN Reason: Dry skin Last Admin: 02/03/17 13:17 Dose: 1 ea - Labs Labs: 02/03/17 07:01 02/03/17 07:01 PT 11.3 SECONDS (9.7-12.2) 02/02/17 16:08 INR 1.0 02/02/17 16:08 APTT 31 SECONDS (21-34) 02/02/17 16:08 Attending/Attestation - Attestation I have personally seen and examined this patient.: Yes I have fully participated in the care of the patient.: Yes I have reviewed all pertinent clinical information, including history, physical exam and plan: Yes Notes (Text): 02/03/17 14:25 Medical attending: Patient was seen and examined by me, agrees the above note by the biomedical equipment technician. The patient had a repeat CAT scan done, this CAT scan was of the cervical spine and it was reported that the C2 area appeared to be stable. As mentioned previously when the patient first came to the emergency room due to falling a head CT suggested that she might of had damage to the C2 area. We would like to get MRI for further inspection however the patient has a lot of old metal in her body This being said she still has a lot of discomfort there as well as tenderness. Reviewed try the patient on some tramadol as well as Flexeril to see if this will help with the pain. She is currently being placed on IV antibiotics right now as the urine culture suggesting gram-negative rods Thank you very much, Juan Larose
[2017-02-03 08:57] LABS: PROLACTIN 6.6 ng/mL (3.0-18.9)
[2017-02-03] MEDS: Pantoprazole 40 mg EC Tab PO SCH (09:17)
[2017-02-03] MEDS: buPROPion 150 mg/24 Hours XL Tab PO SCH (09:17)
[2017-02-03] MEDS: Metoprolol Succinate 50 mg XL Tab PO SCH (09:17)
[2017-02-03] MEDS: Sodium Chloride 0.9% 1,000 ML IV SCH ×2 (09:18→13:31)
[2017-02-03] MEDS ORDERED: Influenza Vaccine 60 mcg/0.5 mL SYR (4YR UP) IM ONE (09:51)
--- NOTE | 2017-02-03 12:33 | CP.PCM.CON ---
History of Present Illness - History of Present Illness History of Present Illness: Pt with normal CT of brain and C spine no neurosurgical involvement indicated 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) - RENAL Hx Chronic Kidney Disease: No - ENDOCRINE/METABOLIC Hx Endocrine Disorders: No - HEMATOLOGICAL/ONCOLOGICAL Hx Blood Disorders: No - INTEGUMENTARY Hx Dermatological Problems: No - MUSCULOSKELETAL/RHEUMATOLOGICAL Hx Musculoskeletal Disorders: Yes Hx Arthritis: Yes Hx Falls: Yes Hx Fractures: Yes (Right Shoulder) Hx Osteoporosis: Yes - GASTROINTESTINAL Hx Gastrointestinal Disorders: Yes Hx Gastritis: Yes - GENITOURINARY/GYNECOLOGICAL Hx Genitourinary Disorders: No - PSYCHIATRIC Hx Psychophysiologic Disorder: Yes Hx Anxiety: Yes Hx Depression: Yes Hx Substance Use: No - SURGICAL HISTORY Hx Surgeries: Yes Hx Appendectomy: Yes Hx Cholecystectomy: Yes - ANESTHESIA Hx Anesthesia: Yes Hx Anesthesia Reactions: No Hx Malignant Hyperthermia: No Has any member of the family had a problem w/ anesthesia?: No Meds Allergies/Adverse Reactions: Allergies Allergy/AdvReac Type Severity Reaction Status Date / Time Sulfa (Sulfonamide Allergy ANAPHYLAXIS Verified 02/02/17 14:46 Antibiotics) sulfasalazine Allergy ITCHING Verified 02/02/17 14:46 - Medications Medications: Current Medications Alprazolam (Xanax) 1 mg PO TID [facility] Last Admin: 02/03/17 09:17 Dose: 1 mg Bupropion HCl (Wellbutrin Xl) 300 mg PO DAILY [facility] Last Admin: 02/03/17 09:17 Dose: 300 mg Cyclobenzaprine HCl (Flexeril) 10 mg PO BID [facility] Gabapentin (Neurontin) 300 mg PO TID [facility] Last Admin: 02/03/17 09:17 Dose: 300 mg Sodium Chloride (Sodium Chloride 0.9%) 1,000 mls @ 100 mls/hr IV .Q10H [facility] Last Admin: 02/03/17 09:18 Dose: 100 mls/hr Ceftriaxone Sodium 1 gm/ (Sodium Chloride) 100 mls @ 100 mls/hr IVPB Q12H [facility] Last Admin: 02/03/17 06:02 Dose: 100 mls/hr Isosorbide Mononitrate (Imdur Er) 60 mg PO DAILY [facility] Last Admin: 02/03/17 09:18 Dose: 60 mg Memantine (Namenda) 10 mg PO DAILY [facility] Last Admin: 02/03/17 09:17 Dose: 10 mg Metoprolol Succinate (Toprol Xl) 50 mg PO DAILY [facility] Last Admin: 02/03/17 09:17 Dose: 50 mg Pantoprazole Sodium (Protonix Ec Tab) 40 mg PO DAILY [facility] Last Admin: 02/03/17 09:17 Dose: 40 mg Tramadol HCl (Ultram) 25 mg PO TID PRN PRN Reason: Pain, moderate (4-7) Last Admin: 02/03/17 08:41 Dose: 25 mg Vitamin A (Vitamin A & D Oint Ud Foilpak) 1 ea TOP Q4 PRN PRN Reason: Dry skin Last Admin: 02/03/17 00:43 Dose: 1 ea Results - Vital Signs Recent Vital Signs: Last Vital Signs Temp 98.0 F 02/03/17 08:33 Pulse 89 02/03/17 08:33 Resp 20 02/03/17 08:33 BP 121/71 02/03/17 08:33 Pulse Ox 99 02/03/17 08:33 - Labs Result Diagrams: 02/03/17 07:01 02/03/17 07:01 Labs: Laboratory Results - last 24 hr 02/02/17 02/02/17 02/02/17 16:08 16:08 16:08 WBC 7.6 D RBC 4.32 Hgb 13.5 Hct 40.4 MCV 93.5 MCH 31.3 H MCHC 33.5 RDW 14.4 Plt Count 207 MPV 9.4 Neut % (Auto) 70.8 Lymph % (Auto) 14.[address] [place] % (Auto) 12.9 H Eos % (Auto) 0.7 Baso % (Auto) 0.9 Neut # 5.4 Lymph # 1.1 [place] # 1.0 H Eos # 0.1 Baso # 0.1 PT 11.3 INR 1.0 APTT 31 Sodium 139 Potassium 4.9 Chloride 101 Carbon Dioxide 29 Anion Gap 14 BUN 20 H Creatinine 0.7 Est GFR ( Amer) > 60 Est GFR (Non-Af Amer) > 60 Random Glucose 100 Calcium 8.1 L Phosphorus Magnesium Total Bilirubin 1.0 AST 44 H ALT 27 Alkaline Phosphatase 131 H Troponin I < 0.0120 Total Protein 7.3 Albumin 3.9 Globulin 3.4 Albumin/Globulin Ratio 1.1 Prolactin Urine Color Urine Clarity Urine pH Ur Specific [place] Urine Protein Urine Glucose (UA) Urine Ketones Urine Blood Urine Nitrate Urine Bilirubin Urine Urobilinogen Ur Leukocyte Esterase Urine WBC (Auto) Urine RBC (Auto) Ur Squamous Epith Cells Ur Transition Epith Cell Urine Bacteria 02/02/17 02/03/17 02/03/17 16:46 07:01 07:01 WBC 9.2 RBC 4.04 Hgb 12.8 Hct 37.6 MCV 93.2 MCH 31.8 H MCHC 34.1 RDW 14.6 H Plt Count 185 MPV 9.7 Neut % (Auto) 74.4 Lymph % (Auto) 12.[address] [place] % (Auto) 12.2 H Eos % (Auto) 0.2 Baso % (Auto) 0.4 Neut # 6.8 Lymph # 1.2 [place] # 1.1 H Eos # 0.0 Baso # 0.0 PT INR APTT Sodium 139 Potassium 3.6 Chloride 105 Carbon Dioxide 29 Anion Gap 8 L BUN 14 Creatinine 0.7 Est GFR ( Amer) > 60 Est GFR (Non-Af Amer) > 60 Random Glucose 91 Calcium 7.9 L Phosphorus 3.2 Magnesium 1.7 Total Bilirubin 0.9 AST 26 ALT 25 Alkaline Phosphatase 125 Troponin I Total Protein 6.4 Albumin 3.4 L Globulin 3.0 Albumin/Globulin Ratio 1.1 Prolactin Urine Color Yellow Urine Clarity Hazy Urine pH 7.0 Ur Specific [place] 1.008 Urine Protein Negative Urine Glucose (UA) Normal Urine Ketones Negative Urine Blood 1+ H Urine Nitrate Positive H Urine Bilirubin Negative Urine Urobilinogen Normal Ur Leukocyte Esterase 3+ H Urine WBC (Auto) 234 H Urine RBC (Auto) 6 H Ur Squamous Epith Cells < 1 Ur Transition Epith Cell < 1 Urine Bacteria Many H 02/03/17 08:19 WBC RBC Hgb Hct MCV MCH MCHC RDW Plt Count MPV Neut % (Auto) Lymph % (Auto) [place] % (Auto) Eos % (Auto) Baso % (Auto) Neut # Lymph # [place] # Eos # Baso # PT INR APTT Sodium Potassium Chloride Carbon Dioxide Anion Gap BUN Creatinine Est GFR ( Amer) Est GFR (Non-Af Amer) Random Glucose Calcium Phosphorus 3.3 Magnesium 1.8 Total Bilirubin AST ALT Alkaline Phosphatase Troponin I Total Protein Albumin Globulin Albumin/Globulin Ratio Prolactin 6.6 Urine Color Urine Clarity Urine pH Ur Specific [place] Urine Protein Urine Glucose (UA) Urine Ketones Urine Blood Urine Nitrate Urine Bilirubin Urine Urobilinogen Ur Leukocyte Esterase Urine WBC (Auto) Urine RBC (Auto) Ur Squamous Epith Cells Ur Transition Epith Cell Urine Bacteria
--- NOTE | 2017-02-03 18:43 | CON ---
DATE: 02/03/2017 REASON FOR THE CONSULTATION: Status post fall, possible syncope attack. CHIEF COMPLAINT: The patient was brought into [facility] with a history of fall at home. From neurological point of view, I was called in to evaluate her for further evaluation of the fall as well as the syncopal episode. HISTORY OF PRESENT ILLNESS: Ms. 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 No clear history of passing out spells or loss of consciousness. No bowel and bladder incontinence at the scene. No bitten tongue. No similar episodes happened in the past. PAST MEDICAL HISTORY: As stated above including anxiety, arthritis, atrial fibrillation, COPD, depression, emphysema, gastritis, and osteoporosis. PERSONAL HISTORY: Denied smoking, alcohol use. REVIEW OF SYSTEMS: Twelve-point system had been reviewed. From neuro, syncopal attack. MEDICATIONS: Ceftriaxone, isosorbide, memantine, pantoprazole, metoprolol, vitamin A, bupropion, and alprazolam. PHYSICAL EXAMINATION: VITAL SIGNS: Blood pressure 135/77, mean arterial pressure of 96, respiratory rate 18, temperature 98 degrees Fahrenheit, pulse rate 89 and irregular. NECK: Cervical soft collar. Complaining of right-sided neck pain. HEART: Sounds irregular. EXTREMITIES: Not externally rotated. NEUROLOGICAL: Mental status: She is awake, alert, and oriented to person, place, and time. No retrograde as well as antegrade amnesia. No confusion. No confabulation. No suicidal ideation. 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 No facial sensory deficit. No facial asymmetry. Hearing seems to be intact. Tongue is moist. Motor: She could able to move her right arm against gravity; however, left arm inability to move due to her longstanding bursitis in her shoulder; however, distally from elbow down, her movements are normal. She could able to lift her both lower extremities against gravity. Deep tendon refluxes absent throughout. Plantars are equivocal response on either side. Sensory: Responds to pain symmetrically on both sides. Posterior column is intact. Coordination: Gait is deferred at this time. DIAGNOSTIC WORKUP: CT of the head does not show any acute changes or bleed. No stroke process. Mild atrophy noted. No cervical arthritis noted. No fractures or no cord involvement is noted. also normal. BLOOD WORKUP: WBC 7.6, hemoglobin 13.5, hematocrit 40.4, platelets 207. PT 11.3, INR 1.0, PTT 31. Sodium 139, potassium 4.9, chloride 101, bicarbonate 29, BUN 20, creatinine 0.7, calcium 8.1, alkaline phosphatase 131. Urinalysis shows 1+ hematuria with positive for nitrites and wbc's are 234 with many bacteria. CONCLUSION: Ms. Kim Joseph has been presenting possible postconcussion syndrome. No clear evidence of retrograde or antegrade amnesia. The current examination of the left arm is due the pain over her left shoulder region due to her chronic left shoulder bursitis. The current examination does not show any myelopathy. RECOMMENDATION: 1. MRA of the brain. 2. EEG to rule out any electrographic seizures. If her symptoms are worse in the arm, at that point, I would like her to have MRI of the cervical spine as well. 3. In the meantime, we will let her get out of the bed. If no issues, the cervical collar can be removed. 4. Physical therapy should be started. 5. DVT prophylaxis should be continued. The patient will be followed closely with you. Irvin Shah MD
[2017-02-04] MEDS: Tramadol 25 mg PO PRN (04:44)
[2017-02-04] MEDS: Sodium Chloride 0.9% 1,000 ML IV SCH ×3 (04:46→19:11)
[2017-02-04 06:18] LABS: BASO % 0.3 % (0.0-2.0); EOS % 0.1 % (0.0-4.0); HEMOGLOBIN 12.7 g/dL (11.0-16.0); LYMPH % 9.5 % (20.0-40.0); MEAN CELL VOLUME 92.8 fL (81.0-99.0); MEAN CORPUSCULAR HEMOGLOBIN 31.8 pg (27.0-31.0); MEAN CORPUSCULAR HGB CONC 34.3 g/dL (33.0-37.0); MEAN PLATELET VOLUME 10.1 fL (7.2-11.7); MONO # 1.6 K/uL (0.0-0.8); MONO % 15.3 % (0.0-10.0); NEUT # 7.7 K/uL (1.8-7.0); NEUT % 74.8 % (50.0-75.0); PLATELET COUNT 171 K/uL (130-400); RBC 3.99 Mil/uL (3.80-5.20); RED CELL DISTRIBUTION WIDTH 14.6 % (11.5-14.5); WHITE BLOOD COUNT 10.3 K/uL (4.8-10.8)
[2017-02-04 06:46] LABS: ALB/GLOB RATIO 1.1 (1.0-2.1); ALBUMIN 3.4 g/dL (3.5-5.0); ALT/SGPT 33 U/L (9-52); AST/SGOT 21 U/L (14-36); BLOOD UREA NITROGEN 9 mg/dL (7-17); CALCIUM 7.8 mg/dl (8.6-10.4); GFR AFRICAN-AMERICAN > 60; GFR NON-AFRICAN AMERICAN > 60
[2017-02-04 08:19] LABS: LYMPHOCYTE 13 % (20-40); MONOCYTE 15 % (0-10); NEUTROPHIL 72 % (50-75); PLATELET ESTIMATE NORMAL (NORMAL); TOTAL CELLS COUNTED 100
[2017-02-04 08:24] LABS: ANISOCYTOSIS SLIGHT
[2017-02-04 08:27] LABS: HYPOCHROMIC SLIGHT; POLYCHROMIC SLIGHT
[2017-02-04 08:31] LABS: OVALOCYTES SLIGHT; POIKILOCYTOSIS SLIGHT
[2017-02-04 08:36] LABS: LARGE PLATELETS PRESENT
--- NOTE | 2017-02-04 09:43 | CP.PCM.PN ---
Subjective - Date & Time of Evaluation Date of Evaluation: 02/04/17 Time of Evaluation: 09:30 - Subjective Subjective: Patient was seen and examined. Patient's primary physician does come to [facility], however when we contacted they reported being ill and could not come to hospital. She reported still having tenderness at the neck area. We changed her morphine and tramadol from PRN over to JASPAL basis with holding parameters. Also started on flexerill as well. She just returned from carotid study this morning. Cervical collar removed yesterday. She had a CT scan of cervical spine done because she could not get an MRI. This cervical study reported no fractures at the C2 area. She is able to move all extremities except for right arm past 90 degrees since she has old rotator cuff injury Objective - Vital Signs/Intake and Output Vital Signs (last 24 hours): Temp Pulse Resp BP Pulse Ox 98.9 F 89 20 162/97 H 98 02/04/17 07:00 02/04/17 07:25 02/04/17 07:00 02/04/17 07:00 02/04/17 07:00 - Medications Medications: Current Medications Alprazolam (Xanax) 1 mg PO TID [facility] Last Admin: 02/03/17 19:21 Dose: 1 mg Bupropion HCl (Wellbutrin Xl) 300 mg PO DAILY [facility] Last Admin: 02/03/17 09:17 Dose: 300 mg Cyclobenzaprine HCl (Flexeril) 10 mg PO BID [facility] Last Admin: 02/03/17 19:21 Dose: 10 mg Gabapentin (Neurontin) 300 mg PO TID [facility] Last Admin: 02/03/17 19:21 Dose: 300 mg Sodium Chloride (Sodium Chloride 0.9%) 1,000 mls @ 100 mls/hr IV .Q10H [facility] Last Admin: 02/04/17 04:46 Dose: 100 mls/hr Ceftriaxone Sodium 1 gm/ (Sodium Chloride) 100 mls @ 100 mls/hr IVPB Q12H [facility] Last Admin: 02/04/17 05:36 Dose: 100 mls/hr Isosorbide Mononitrate (Imdur Er) 60 mg PO DAILY [facility] Last Admin: 02/03/17 09:18 Dose: 60 mg Memantine (Namenda) 10 mg PO DAILY [facility] Last Admin: 02/03/17 09:17 Dose: 10 mg Metoprolol Succinate (Toprol Xl) 50 mg PO DAILY [facility] Last Admin: 02/03/17 09:17 Dose: 50 mg Morphine Sulfate (Morphine) 2 mg IV Q6 PRN PRN Reason: Pain, severe (8-10) Last Admin: 02/04/17 08:17 Dose: 2 mg Pantoprazole Sodium (Protonix Ec Tab) 40 mg PO DAILY [facility] Last Admin: 02/03/17 09:17 Dose: 40 mg Tramadol HCl (Ultram) 25 mg PO TID PRN PRN Reason: Pain, moderate (4-7) Last Admin: 02/04/17 04:44 Dose: 25 mg Vitamin A (Vitamin A & D Oint Ud Foilpak) 1 ea TOP Q4 PRN PRN Reason: Dry skin Last Admin: 02/03/17 13:17 Dose: 1 ea - Labs Labs: 02/04/17 06:14 02/04/17 06:14 PT 11.3 SECONDS (9.7-12.2) 02/02/17 16:08 INR 1.0 02/02/17 16:08 APTT 31 SECONDS (21-34) 02/02/17 16:08 - Constitutional Appears: Unkempt, Agitated, Chronically Ill - Head Exam Head Exam: absent: ATRAUMATIC, NORMAL INSPECTION, NORMOCEPHALIC Additional comments: Over forehead has laceration from fall. It looks ok, non bleeding, non hematoma. It has dermabound on it. - Eye Exam Eye Exam: absent: EOMI, Normal appearance Additional comments: Patient is blind - ENT Exam ENT Exam: Mucous Membranes Moist - Neck Exam Additional comments: She has pain that prevents her from much flexion/extention of the neck, pain with rotation of head. Tenderness cervical area (though I did not press very hard) - Respiratory Exam Respiratory Exam: Clear to Ausculation Bilateral, NORMAL BREATHING PATTERN - Cardiovascular Exam Cardiovascular Exam: Irregular Rhythm - GI/Abdominal Exam GI & Abdominal Exam: Soft, Normal Bowel Sounds - Neurological Exam Neurological Exam: Alert, Awake Neuro motor strength exam: Left Upper Extremity: 4, Right Upper Extremity: 4, Left Lower Extremity: 4, Right Lower Extremity: 4 - Psychiatric Exam Psychiatric exam: Depressed, Flat Affect - Skin Skin Exam: Pallor, Warm Assessment and Plan - Assessment and Plan (Free Text) Assessment: (1) Neck Pain Status post fall 02/04: We were intially concern for fracture of C2 however we cannot get an MRI due to old metal in her body. We then ordered CT scan of cervical spine reported no fracture of C2. She does have movement of all extremities however pain with rotation and flex/ext of the head. Flexeril, Tramadol started for pain. Neurosurgery reviewed case and she does not need intervention. Probably will be here over the long weekend as she will need to be seen by case workers and eventually [facility]UPAL. Continue PT/OT Neurology consult, Dr Shah Neurosurgery consult, Dr Dsouza MRI cannot be done 03/10 to patient with right shoulder metal prosthetics HOLD home med Aspirin 81mg due to recent head trauma Imaging: CT orbits w/o IV contrast 02/02: The orbits appear intact. Please note sagittal views demonstrate oblique lucency involving the inferior aspect of C2 which is suspected to reflect degenerative changes and possible vascular groove however nondisplaced fracture cannot be entirely excluded. Osseous demineralization limits evaluation. Correlate clinically. MRI of the cervical spine may be considered for further evaluation. CT head w/o contrast 02/02: No acute intracranial pathology identified. Incidental findings as above. Cervical spine w/o contrast 02/02: No fracture. Degenerative changes noted. Dr. Shah recommended carotid ultrasound, MRI, and EEG. Due to patient's metal in the right shoulder, MRI is unable to be done. Dr. Dsouza stated no neurosurgical involvement necessary. Flexerill 10 mg PO BID added 02/03 Tramadol 25 mg PO TID prn added 02/03 Gabapentin 300 mg PO TID added 02/03 (2) Urinary tract infection 02/04: Urine culture has returned and showed + Klebsiella growth. It is resistant to ampicillin, very sensitive to cipro. There was no study on it's sensitivity to rocephin. Will stop the rocephin and start cipro. It may be that her UTI is what contributed to her falling down. We are repeating the UA and UC+ S UA 02/02: Many bacteria, 1+ blood, +Nitrate, 3+ leukocyte esterase, wbc 234, wbc 6 NS at 100 cc/hr (3) Anxiety Con't home med xanax 1 mg PO TID (4) Depression Bbupropion XL 300mg PO QD (5) Atrial fibrillation 02/04 Due to patient being blind and having falls - she is not on anticoagulation. HR is recorded 80s to 90s Rate controlled with metoprolol succinate 50mg PO QD Chronic (6) Hypertension 02/04: She had one high reading this morning however previous was very good. Cont to monitor. BP well controlled Isosorbide mononitrate 60mg PO QD (7) Dementia Memantine 10mg PO QD (8) Prophylactic antibiotic Protonix 40mg PO QD SCDs HOLD VTE therapy due to recent head trauma Heart healthy diet
[2017-02-04] MEDS: Metoprolol Succinate 50 mg XL Tab PO SCH (09:58)
[2017-02-04] MEDS: Vitamins A & D Oint UD Foilpak TOP PRN ×2 (09:58→22:04)
[2017-02-04] MEDS: Pantoprazole 40 mg EC Tab PO SCH (09:59)
[2017-02-04] MEDS: buPROPion 150 mg/24 Hours XL Tab PO SCH (10:02)
[2017-02-04] MEDS: Ciprofloxacin 400mg/200ml D5W 400 MG/200 ML BAG IVPB SCH ×2 (11:45→22:04)
[2017-02-04 15:15] LABS: SQUAMOUS EPITHIAL 8 /hpf (0-5); URINE BACTERIA RARE (<OCC); URINE BILIRUBIN NEGATIVE (NEGATIVE); URINE BLOOD 1+ (NEGATIVE); URINE CLARITY Hazy (Clear); URINE COLOR Yellow (YELLOW); URINE GLUCOSE (UA) NORMAL (Normal); URINE LEUKOCYTE ESTERASE 3+ Leu/uL (Negative); URINE NITRATE NEGATIVE (NEGATIVE); URINE PROTEIN NEGATIVE (NEGATIVE); URINE UROBILINOGEN NORMAL mg/dL (0.2-1.0)
[2017-02-04] MEDS: Tramadol 25 mg PO SCH (16:37)
[2017-02-05] MEDS: Tramadol 25 mg PO SCH ×3 (00:34→16:53)
[2017-02-05] MEDS: Sodium Chloride 0.9% 1,000 ML IV SCH ×3 (05:53→14:51)
[2017-02-05] MEDS ORDERED: Digoxin 500 mcg/2ml (0.5 mg/2ml) Inj IVP STA (07:55)
[2017-02-05 08:00] LABS: BASO % 0.3 % (0.0-2.0); EOS % 0.1 % (0.0-4.0); HEMOGLOBIN 13.5 g/dL (11.0-16.0); LYMPH # 0.7 K/uL (1.0-4.3); LYMPH % 5.3 % (20.0-40.0); MEAN CELL VOLUME 94.5 fL (81.0-99.0); MEAN CORPUSCULAR HEMOGLOBIN 31.8 pg (27.0-31.0); MEAN CORPUSCULAR HGB CONC 33.7 g/dL (33.0-37.0); MEAN PLATELET VOLUME 10.2 fL (7.2-11.7); MONO # 1.9 K/uL (0.0-0.8); MONO % 14.3 % (0.0-10.0); NEUT # 10.4 K/uL (1.8-7.0); PLATELET COUNT 162 K/uL (130-400); RBC 4.24 Mil/uL (3.80-5.20); RED CELL DISTRIBUTION WIDTH 14.1 % (11.5-14.5)
--- NOTE | 2017-02-05 08:17 | CP.PCM.PN ---
Subjective - Date & Time of Evaluation Date of Evaluation: 02/05/17 Time of Evaluation: 08:00 - Subjective Subjective: Patient was seen and examined by me. She overnight had a high HR of 130 at times. Mostly it appears to be going in and out of atrial fibrillation - atrial flutter. There were episodes of HR that pawel briefly into the 160s overnight. As previously mentioned she is NOT on anticoagulation due to blindness and falling risk. This morning I gave cardizem 5mg IV x 1 dose and then digoxin 0.25 x 1. The HR came down to between 100 to 110. If it goes back up maybe a cardizem ggt. When I saw the patient in the morning she reported feeling fine. She denied chest pain and denied shortness of breath. She also denied palpitations. I asked her about her neck pain and she reported she reported it was much less today. 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 She only knows she was seeing someone in [facility]. Objective - Vital Signs/Intake and Output Vital Signs (last 24 hours): Temp Pulse Resp BP Pulse Ox 97.4 F L 89 20 106/64 96 02/05/17 04:05 02/05/17 04:05 02/05/17 04:05 02/05/17 04:05 02/04/17 15:50 Intake and Output: 02/05/17 02/05/17 06:59 18:59 Intake Total 1800 Output Total 650 Balance 1150 - Medications Medications: Current Medications Alprazolam (Xanax) 1 mg PO TID [facility] Last Admin: 02/04/17 17:54 Dose: 1 mg Bupropion HCl (Wellbutrin Xl) 300 mg PO DAILY [facility] Last Admin: 02/04/17 10:02 Dose: 300 mg Cyclobenzaprine HCl (Flexeril) 10 mg PO BID [facility] Last Admin: 02/04/17 17:54 Dose: 10 mg Gabapentin (Neurontin) 300 mg PO TID [facility] Last Admin: 02/04/17 17:54 Dose: 300 mg Sodium Chloride (Sodium Chloride 0.9%) 1,000 mls @ 100 mls/hr IV .Q10H [facility] Last Admin: 02/05/17 05:53 Dose: Not Given Ciprofloxacin (Cipro 400mg/200ml Dsw) 400 mg in 200 mls @ 133 mls/hr IVPB Q12H [facility] Last Admin: 12/30/17 22:04 Dose: 133 mls/hr Isosorbide Mononitrate (Imdur Er) 60 mg PO DAILY [facility] Last Admin: 02/04/17 09:58 Dose: 60 mg Memantine (Namenda) 10 mg PO DAILY [facility] Last Admin: 02/04/17 09:59 Dose: 10 mg Metoprolol Succinate (Toprol Xl) 50 mg PO DAILY [facility] Last Admin: 02/04/17 09:58 Dose: 50 mg Morphine Sulfate (Morphine) 2 mg IV Q6 [facility] Last Admin: 02/05/17 05:51 Dose: 2 mg Pantoprazole Sodium (Protonix Ec Tab) 40 mg PO DAILY [facility] Last Admin: 02/04/17 09:59 Dose: 40 mg Tramadol HCl (Ultram) 25 mg PO Q8H [facility] Last Admin: 02/05/17 00:34 Dose: 25 mg Vitamin A (Vitamin A & D Oint Ud Foilpak) 1 ea TOP Q4 PRN PRN Reason: Dry skin Last Admin: 02/04/17 22:04 Dose: 1 ea - Labs Labs: 02/05/17 07:41 02/04/17 06:14 PT 11.3 SECONDS (9.7-12.2) 02/02/17 16:08 INR 1.0 02/02/17 16:08 APTT 31 SECONDS (21-34) 02/02/17 16:08 - Constitutional Appears: No Acute Distress, Unkempt, Chronically Ill - Head Exam Head Exam: absent: ATRAUMATIC, NORMAL INSPECTION - Respiratory Exam Respiratory Exam: Clear to Ausculation Bilateral, NORMAL BREATHING PATTERN - Cardiovascular Exam Cardiovascular Exam: Irregular Rhythm - GI/Abdominal Exam GI & Abdominal Exam: Soft, Normal Bowel Sounds - Neurological Exam Neurological Exam: Alert, Awake Neuro motor strength exam: Left Upper Extremity: 4, Right Upper Extremity: 4 - Psychiatric Exam Psychiatric exam: Depressed, Flat Affect - Skin Skin Exam: Normal Color, Warm Assessment and Plan - Assessment and Plan (Free Text) Assessment: (1) Neck Pain Status post fall 02/05: Pain was more controlled this morning. My concern was that overnight she had a lot of pain making the HR fast however she said pain was less overnight. 02/04: We were intially concern for fracture of C2 however we cannot get an MRI due to old metal in her body. We then ordered CT scan of cervical spine reported no fracture of C2. She does have movement of all extremities however pain with rotation and flex/ext of the head. Flexeril, Tramadol started for pain. Neurosurgery reviewed case and she does not need intervention. Probably will be here over the long weekend as she will need to be seen by case workers and eventually [facility]. Continue PT/OT Neurology consult, Dr Shah Neurosurgery consult, Dr Dsouza MRI cannot be done 03/10 to patient with right shoulder metal prosthetics HOLD home med Aspirin 81mg due to recent head trauma Imaging: CT orbits w/o IV contrast 02/02: The orbits appear intact. Please note sagittal views demonstrate oblique lucency involving the inferior aspect of C2 which is suspected to reflect degenerative changes and possible vascular groove however nondisplaced fracture cannot be entirely excluded. Osseous demineralization limits evaluation. Correlate clinically. MRI of the cervical spine may be considered for further evaluation. CT head w/o contrast 02/02: No acute intracranial pathology identified. Incidental findings as above. Cervical spine w/o contrast 02/02: No fracture. Degenerative changes noted. Dr. Shah recommended carotid ultrasound, MRI, and EEG. Due to patient's metal in the right shoulder, MRI is unable to be done. Dr. Dsouza stated no neurosurgical involvement necessary. Flexerill 10 mg PO BID added 02/03 Tramadol 25 mg PO TID prn added 02/03 Gabapentin 300 mg PO TID added 02/03 (2) Atrial fibrillation 02/05: This morning HR in the 130s and responded to cardizem 5 mg IV x1. We are also giving digoxin 0.25 IV x 1 dose as well - and later if need to start a cardizem ggt - or change the Toprol XL to Lopressor BID. Will get a cardiology eval. She does not remember who her electric refrigerator preparer is. As mentioned previously she is NOT on anticoagulation due to her being blind and fall risk. 02/04 Due to patient being blind and having falls - she is not on anticoagulation. HR is recorded 80s to 90s Rate controlled with metoprolol succinate 50mg PO QD Chronic (3) Urinary tract infection 02/05: Tommorow get a new UC+S and also a repeat UA. Continue the cipro. 02/04: Urine culture has returned and showed + Klebsiella growth. It is resistant to ampicillin, very sensitive to cipro. There was no study on it's sensitivity to rocephin. Will stop the rocephin and start cipro. It may be that her UTI is what contributed to her falling down. We are repeating the UA and UC+ S UA 02/02: Many bacteria, 1+ blood, +Nitrate, 3+ leukocyte esterase, wbc 234, wbc 6 NS at 100 cc/hr (3) Anxiety Xanax 1 mg PO TID (4) Depression Bbupropion XL 300mg PO QD (6) Hypertension 02/04: She had one high reading this morning however previous was very good. Cont to monitor. BP well controlled Isosorbide mononitrate 60mg PO QD (7) Dementia Memantine 10mg PO QD (8) Prophylactic antibiotic Protonix 40mg PO QD SCDs HOLD VTE therapy due to recent head trauma Heart healthy diet
[2017-02-05 08:27] LABS: ALB/GLOB RATIO 1.1 (1.0-2.1); ALBUMIN 3.5 g/dL (3.5-5.0); ALT/SGPT 34 U/L (9-52); AST/SGOT 33 U/L (14-36); BLOOD UREA NITROGEN 9 mg/dL (7-17); CALCIUM 8.2 mg/dl (8.6-10.4); GFR AFRICAN-AMERICAN > 60; GFR NON-AFRICAN AMERICAN > 60
[2017-02-05 08:54] LABS: LYMPHOCYTE 4 % (20-40); MONOCYTE 16 % (0-10); NEUTROPHIL 80 % (50-75); TOTAL CELLS COUNTED 100
[2017-02-05 08:55] LABS: ANISOCYTOSIS SLIGHT; PLATELET ESTIMATE NORMAL (NORMAL)
[2017-02-05 08:56] LABS: GIANT PLATELETS PRESENT; LARGE PLATELETS PRESENT
[2017-02-05 08:57] LABS: POLYCHROMIC SLIGHT; TOXIC GRANULATION PRESENT
[2017-02-05] MEDS: Vitamins A & D Oint UD Foilpak TOP PRN (09:14)
[2017-02-05] MEDS: buPROPion 150 mg/24 Hours XL Tab PO SCH (09:14)
[2017-02-05] MEDS: Metoprolol Succinate 50 mg XL Tab PO SCH ×2 (09:14→17:42)
[2017-02-05] MEDS: Pantoprazole 40 mg EC Tab PO SCH (09:15)
--- NOTE | 2017-02-05 09:46 | VASCLAB ---
PROCEDURE: HISTORY: Syncope COMPARISON: Previous exam 04/04/2009, normal. TECHNIQUE: Grayscale and duplex Doppler evaluation of the cervical carotid and vertebral arteries were performed. The common carotid, carotid bifurcations and cervical Internal Carotid Artery (ICA) and proximal External Carotid Artery (ECA) were evaluated. The vertebral arteries were evaluated for gross patency and flow direction. Report prepared by DOMI Larson FINDINGS: RIGHT CAROTID ARTERIES: 1. Common Carotid Artery: No significant focal plaque formation of the right common carotid artery. Maximum Peak Systolic velocity: 78 cm/sec: End-diastolic velocity 17 cm/sec. 2. Carotid Bifurcation: plaque formation. Maximum Peak Systolic velocity: 52 cm/sec: End-diastolic velocity 17 cm/sec. 3. Internal Carotid Artery: Plaque description: Homogeneous 3.1. Proximal Segment: Peak systolic velocity 72 cm/sec: End-diastolic velocity 23 cm/sec - % stenosis 0-15% 3.2. Middle Segment: Peak systolic velocity 108 cm/sec: End-diastolic velocity 43 cm/sec - % stenosis 0-15% 3.3. Distal Segment: Peak systolic velocity 113 cm/sec: End-diastolic velocity 43 cm/sec - % stenosis 0-15% 4. External Carotid Artery: No significant focal plaque formation. Peak systolic velocity 95 cm/sec 5. ICA/CCA Ratio: 1.8 LEFT CAROTID ARTERIES: 1. Common Carotid Artery: No significant focal plaque formation of the left common carotid artery. Maximum Peak Systolic velocity: 115 cm/sec: End-diastolic velocity 32 cm/sec. 2. Carotid Bifurcation: plaque formation. Maximum Peak Systolic velocity: 56 cm/sec: End-diastolic velocity 25 cm/sec. 3. Internal Carotid Artery: Plaque description: Homogeneous 3.1. Proximal Segment: Peak systolic velocity 80 cm/sec: End-diastolic velocity 25 cm/sec - % stenosis 0-15% 3.2. Middle Segment: Peak systolic velocity 79 cm/sec: End-diastolic velocity 28 cm/sec - % stenosis 0-15% 3.3. Distal Segment: Peak systolic velocity 69 cm/sec: End-diastolic velocity 30 cm/sec - % stenosis 0-15% 4. External Carotid Artery: No significant focal plaque formation. Peak systolic velocity 72 cm/sec 5. ICA/CCA Ratio: 0.9 VERTEBRAL ARTERIES: 1. Right Vertebral Artery: The right vertebral artery flow direction is antegrade. 2. Left Vertebral Artery: The left vertebral artery flow direction is antegrade. OTHER FINDINGS: 1. Right Brachial Blood pressure: 160 mmHg. 2. Left Brachial Blood pressure: 160 mmHg. IMPRESSION: RIGHT: Duplex scan does not suggest hemodynamically significant stenosis of the right extracranial carotid arteries. LEFT: Duplex scan does not suggest hemodynamically significant stenosis of the left extracranial carotid arteries.
[2017-02-05 09:58] LABS: CK-MB 2.63 ng/mL (0.0-3.38)
[2017-02-05] MEDS: Ciprofloxacin 400mg/200ml D5W 400 MG/200 ML BAG IVPB SCH ×2 (10:13→22:21)
[2017-02-05] MEDS: Enoxaparin 40 mg Syringe SC SCH (10:13)
--- NOTE | 2017-02-05 18:41 | CP.PCM.CON ---
History of Present Illness - History of Present Illness History of Present Illness: Patient seen and evaluated 71 F with dementia and multiple falls admitted for fall and syncope Patient was found to be in A Fib (Old) BP and HR under control prison anticoagulation is risky Add ASA 81 daily Check ECHO and Carotid doppler Consider neuro eval 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) - RENAL Hx Chronic Kidney Disease: No - ENDOCRINE/METABOLIC Hx Endocrine Disorders: No - HEMATOLOGICAL/ONCOLOGICAL Hx Blood Disorders: No - INTEGUMENTARY Hx Dermatological Problems: No - MUSCULOSKELETAL/RHEUMATOLOGICAL Hx Musculoskeletal Disorders: Yes Hx Arthritis: Yes Hx Falls: Yes Hx Fractures: Yes (Right Shoulder) Hx Osteoporosis: Yes - GASTROINTESTINAL Hx Gastrointestinal Disorders: Yes Hx Gastritis: Yes - GENITOURINARY/GYNECOLOGICAL Hx Genitourinary Disorders: No - PSYCHIATRIC Hx Psychophysiologic Disorder: Yes Hx Anxiety: Yes Hx Depression: Yes Hx Substance Use: No - SURGICAL HISTORY Hx Surgeries: Yes Hx Appendectomy: Yes Hx Cholecystectomy: Yes - ANESTHESIA Hx Anesthesia: Yes Hx Anesthesia Reactions: No Hx Malignant Hyperthermia: No Has any member of the family had a problem w/ anesthesia?: No Meds Allergies/Adverse Reactions: Allergies Allergy/AdvReac Type Severity Reaction Status Date / Time Sulfa (Sulfonamide Allergy ANAPHYLAXIS Verified 02/02/17 14:46 Antibiotics) sulfasalazine Allergy ITCHING Verified 02/02/17 14:46 - Medications Medications: Current Medications Alprazolam (Xanax) 1 mg PO TID [facility] Last Admin: 02/05/17 17:43 Dose: 1 mg Aspirin (Aspirin Chewable) 81 mg PO DAILY [facility] Last Admin: 02/05/17 10:12 Dose: 81 mg Bupropion HCl (Wellbutrin Xl) 300 mg PO DAILY [facility] Last Admin: 02/05/17 09:14 Dose: 300 mg Cyclobenzaprine HCl (Flexeril) 10 mg PO BID [facility] Last Admin: 02/05/17 17:43 Dose: 10 mg Enoxaparin Sodium (Lovenox) 40 mg SC DAILY [facility] Last Admin: 02/05/17 10:13 Dose: 40 mg Gabapentin (Neurontin) 300 mg PO TID [facility] Last Admin: 02/05/17 17:43 Dose: 300 mg Ciprofloxacin (Cipro 400mg/200ml Dsw) 400 mg in 200 mls @ 133 mls/hr IVPB Q12H [facility] Last Admin: 02/05/17 10:13 Dose: 133 mls/hr Isosorbide Mononitrate (Imdur Er) 60 mg PO DAILY [facility] Last Admin: 02/05/17 09:15 Dose: 60 mg Memantine (Namenda) 10 mg PO DAILY [facility] Last Admin: 02/05/17 09:15 Dose: 10 mg Metoprolol Succinate (Toprol Xl) 50 mg PO BID [facility] Last Admin: 02/05/17 17:42 Dose: 50 mg Morphine Sulfate (Morphine) 2 mg IV Q6 [facility] Last Admin: 02/05/17 17:43 Dose: 2 mg Pantoprazole Sodium (Protonix Ec Tab) 40 mg PO DAILY [facility] Last Admin: 02/05/17 09:15 Dose: 40 mg Tramadol HCl (Ultram) 25 mg PO Q8H [facility] Last Admin: 02/05/17 16:53 Dose: 25 mg Vitamin A (Vitamin A & D Oint Ud Foilpak) 1 ea TOP Q4 PRN PRN Reason: Dry skin Last Admin: 02/05/17 09:14 Dose: 1 ea Results - Vital Signs Recent Vital Signs: Last Vital Signs Temp 98.1 F 02/05/17 15:06 Pulse 101 H 02/05/17 16:32 Resp 18 02/05/17 15:06 BP 105/68 02/05/17 15:06 Pulse Ox 94 L 02/05/17 15:06 - Labs Result Diagrams: 02/05/17 07:41 02/05/17 07:41 Labs: Laboratory Results - last 24 hr 02/05/17 02/05/17 02/05/17 07:41 07:41 09:22 WBC 13.0 H RBC 4.24 Hgb 13.5 Hct 40.0 MCV 94.5 MCH 31.8 H MCHC 33.7 RDW 14.1 Plt Count 162 MPV 10.2 Neut % (Auto) 80.0 H Lymph % (Auto) 5.3 L Bledsoe % (Auto) 14.3 H Eos % (Auto) 0.1 Baso % (Auto) 0.3 Neut # 10.4 H Lymph # 0.7 L Bledsoe # 1.9 H Eos # 0.0 Baso # 0.0 Neutrophils % (Manual) 80 H Lymphocytes % (Manual) 4 L Monocytes % (Manual) 16 H Toxic Granulation Present Platelet Estimate Normal Large Platelets Present Giant Platelets Present Polychromasia Slight Anisocytosis (manual) Slight Sodium 136 Potassium 4.1 Chloride 97 L Carbon Dioxide 31 H Anion Gap 11 BUN 9 Creatinine 0.6 L Est GFR ( Amer) > 60 Est GFR (Non-Af Amer) > 60 Random Glucose 87 Calcium 8.2 L Total Bilirubin 1.0 AST 33 ALT 34 Alkaline Phosphatase 134 H Total Creatine Kinase 470 H CK-MB (Mass) 2.63 Troponin I < 0.0120 Total Protein 6.7 Albumin 3.5 Globulin 3.2 Albumin/Globulin Ratio 1.1 TSH 3rd Generation 0.95
[2017-02-06] MEDS: Tramadol 25 mg PO SCH ×4 (00:22→16:05)
[2017-02-06] MEDS: Sodium Chloride 0.9% 1,000 ML IV SCH ×4 (02:22→19:59)
[2017-02-06] MEDS: Enoxaparin 40 mg Syringe SC SCH (08:59)
[2017-02-06] MEDS: Metoprolol Succinate 50 mg XL Tab PO SCH ×2 (09:00→17:13)
[2017-02-06] MEDS: Pantoprazole 40 mg EC Tab PO SCH (09:00)
[2017-02-06] MEDS: buPROPion 150 mg/24 Hours XL Tab PO SCH (09:00)
[2017-02-06] MEDS: Vitamins A & D Oint UD Foilpak TOP PRN ×2 (09:01→22:18)
[2017-02-06] MEDS ORDERED: Digoxin 500 mcg/2ml (0.5 mg/2ml) Inj IVP ONE (09:58)
[2017-02-06] MEDS: Ciprofloxacin 400mg/200ml D5W 400 MG/200 ML BAG IVPB SCH ×2 (10:00→22:18)
--- NOTE | 2017-02-06 10:04 | CP.PCM.PN ---
Subjective - Date & Time of Evaluation Date of Evaluation: 02/06/17 Time of Evaluation: 09:45 - Subjective Subjective: Patient was seen and examined Her HR was trending in the low 100s irregular. There were a few recordings in the mid 120s. Will give another digoxin 0.25 x 1 IV and also added on cardizem PO just 30 BID for now She says she still has pain after the fall Plan is, she needs to see PT/OT and also social science manager evaluation Objective - Vital Signs/Intake and Output Vital Signs (last 24 hours): Temp Pulse Resp BP Pulse Ox 98.0 F 100 H 20 119/74 96 02/06/17 08:13 02/06/17 08:13 02/06/17 08:13 02/06/17 08:13 02/06/17 08:13 Intake and Output: 02/06/17 02/06/17 06:59 18:59 Intake Total 1000 Output Total 400 Balance 600 - Medications Medications: Current Medications Alprazolam (Xanax) 1 mg PO TID [facility] Last Admin: 02/06/17 09:03 Dose: 1 mg Aspirin (Aspirin Chewable) 81 mg PO DAILY [facility] Last Admin: 02/06/17 09:00 Dose: 81 mg Bupropion HCl (Wellbutrin Xl) 300 mg PO DAILY [facility] Last Admin: 02/06/17 09:00 Dose: 300 mg Cyclobenzaprine HCl (Flexeril) 10 mg PO BID [facility] Last Admin: 02/06/17 09:00 Dose: 10 mg Digoxin (Lanoxin) 0.25 mg IVP ONCE ONE Stop: 02/06/17 09:59 Diltiazem HCl (Cardizem) 30 mg PO BID [facility] Enoxaparin Sodium (Lovenox) 40 mg SC DAILY [facility] Last Admin: 02/06/17 08:59 Dose: 40 mg Gabapentin (Neurontin) 300 mg PO TID [facility] Last Admin: 02/06/17 09:00 Dose: 300 mg Ciprofloxacin (Cipro 400mg/200ml Dsw) 400 mg in 200 mls @ 133 mls/hr IVPB Q12H [facility] Last Admin: 02/05/17 22:21 Dose: 133 mls/hr Sodium Chloride (Sodium Chloride 0.9%) 1,000 mls @ 100 mls/hr IV .Q10H [facility] Last Admin: 02/06/17 02:22 Dose: 100 mls/hr Isosorbide Mononitrate (Imdur Er) 60 mg PO DAILY [facility] Last Admin: 02/06/17 09:00 Dose: 60 mg Memantine (Namenda) 10 mg PO DAILY [facility] Last Admin: 02/06/17 09:00 Dose: 10 mg Metoprolol Succinate (Toprol Xl) 50 mg PO BID [facility] Last Admin: 02/06/17 09:00 Dose: 50 mg Morphine Sulfate (Morphine) 2 mg IV Q6 [facility] Last Admin: 02/06/17 05:33 Dose: 2 mg Pantoprazole Sodium (Protonix Ec Tab) 40 mg PO DAILY [facility] Last Admin: 02/06/17 09:00 Dose: 40 mg Tramadol HCl (Ultram) 25 mg PO Q8H [facility] Last Admin: 02/06/17 02:18 Dose: 25 mg Vitamin A (Vitamin A & D Oint Ud Foilpak) 1 ea TOP Q4 PRN PRN Reason: Dry skin Last Admin: 02/06/17 09:01 Dose: 1 ea - Labs Labs: 02/05/17 07:41 02/05/17 07:41 PT 11.3 SECONDS (9.7-12.2) 02/02/17 16:08 INR 1.0 02/02/17 16:08 APTT 31 SECONDS (21-34) 02/02/17 16:08 - Constitutional Appears: Chronically Ill - Head Exam Head Exam: absent: ATRAUMATIC, NORMAL INSPECTION, NORMOCEPHALIC Additional comments: laceration on forehead - Eye Exam Additional comments: 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 absent: Distended, Firm, Guarding, Rigid - Neurological Exam Neurological Exam: Alert, Awake Neuro motor strength exam: Left Upper Extremity: 5 - Psychiatric Exam Psychiatric exam: Depressed, Flat Affect - Skin Skin Exam: Pallor, Warm Assessment and Plan - Assessment and Plan (Free Text) Assessment: (1) Neck Pain Status post fall 02/06/2017: PT/OT evaluation and treatment. Probably will need [facility]. 02/05: Pain was more controlled this morning. My concern was that overnight she had a lot of pain making the HR fast however she said pain was less overnight. 12/30: We were intially concern for fracture of C2 however we cannot get an MRI due to old metal in her body. We then ordered CT scan of cervical spine reported no fracture of C2. She does have movement of all extremities however pain with rotation and flex/ext of the head. Flexeril, Tramadol started for pain. Neurosurgery reviewed case and she does not need intervention. Probably will be here over the long weekend as she will need to be seen by case workers and eventually [facility]. Continue PT/OT Neurology consult, Dr Shah Neurosurgery consult, Dr Dsouza MRI cannot be done 03/10 to patient with right shoulder metal prosthetics HOLD home med Aspirin 81mg due to recent head trauma Imaging: CT orbits w/o IV contrast 02/02: The orbits appear intact. Please note sagittal views demonstrate oblique lucency involving the inferior aspect of C2 which is suspected to reflect degenerative changes and possible vascular groove however nondisplaced fracture cannot be entirely excluded. Osseous demineralization limits evaluation. Correlate clinically. MRI of the cervical spine may be considered for further evaluation. CT head w/o contrast 02/02: No acute intracranial pathology identified. Incidental findings as above. Cervical spine w/o contrast 02/02: No fracture. Degenerative changes noted. Dr. Shah recommended carotid ultrasound, MRI, and EEG. Due to patient's metal in the right shoulder, MRI is unable to be done. Dr. Dsouza stated no neurosurgical involvement necessary. Flexerill 10 mg PO BID added 02/03 Tramadol 25 mg PO TID prn added 02/03 Gabapentin 300 mg PO TID added 02/03 (2) Atrial fibrillation 02/06/2017: : Added cardizem PO 30 BID, digoxin 0.25 IV x 1 02/05: This morning HR in the 130s and responded to cardizem 5 mg IV x1. We are also giving digoxin 0.25 IV x 1 dose as well - and later if need to start a cardizem ggt - or change the Toprol XL to Lopressor BID. Will get a cardiology eval. 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 As mentioned previously she is NOT on anticoagulation due to her being blind and fall risk. 02/04 Due to patient being blind and having falls - she is not on anticoagulation. HR is recorded 80s to 90s Rate controlled with metoprolol succinate 50mg PO QD Chronic (3) Urinary tract infection 02/06/2017: Repeat urine culture negative 02/05: Cleopatra get a new UC+S and also a repeat UA. Continue the cipro. 02/04: Urine culture has returned and showed + Klebsiella growth. It is resistant to ampicillin, very sensitive to cipro. There was no study on it's sensitivity to rocephin. Will stop the rocephin and start cipro. It may be that her UTI is what contributed to her falling down. We are repeating the UA and UC+ S UA 02/02: Many bacteria, 1+ blood, +Nitrate, 3+ leukocyte esterase, wbc 234, wbc 6 NS at 100 cc/hr (3) Anxiety Xanax 1 mg PO TID (4) Depression Bbupropion XL 300mg PO QD (6) Hypertension 02/04: She had one high reading this morning however previous was very good. Cont to monitor. BP well controlled Isosorbide mononitrate 60mg PO QD (7) Dementia Memantine 10mg PO QD (8) Prophylactic antibiotic Protonix 40mg PO QD SCDs HOLD VTE therapy due to recent head trauma Heart healthy diet
[2017-02-06 10:23] VITALS: PULSE 120
[2017-02-06 11:53] LABS: BASO % 0.1 % (0.0-2.0); HEMOGLOBIN 12.1 g/dL (11.0-16.0); LYMPH # 0.5 K/uL (1.0-4.3); LYMPH % 3.6 % (20.0-40.0); MEAN CELL VOLUME 93.3 fL (81.0-99.0); MEAN CORPUSCULAR HEMOGLOBIN 31.6 pg (27.0-31.0); MEAN CORPUSCULAR HGB CONC 33.8 g/dL (33.0-37.0); MEAN PLATELET VOLUME 10.4 fL (7.2-11.7); MONO # 2.2 K/uL (0.0-0.8); MONO % 14.4 % (0.0-10.0); NEUT # 12.7 K/uL (1.8-7.0); NEUT % 81.9 % (50.0-75.0); PLATELET COUNT 143 K/uL (130-400); RBC 3.83 Mil/uL (3.80-5.20); WHITE BLOOD COUNT 15.5 K/uL (4.8-10.8)
[2017-02-06 12:14] LABS: ALT/SGPT 34 U/L (9-52); AST/SGOT 29 U/L (14-36); BLOOD UREA NITROGEN 12 mg/dL (7-17); CALCIUM 7.8 mg/dl (8.6-10.4); GFR AFRICAN-AMERICAN > 60; GFR NON-AFRICAN AMERICAN > 60
[2017-02-06 12:19] LABS: ANISOCYTOSIS SLIGHT; BANDS 1 % (0-2); LYMPHOCYTE 3 % (20-40); MONOCYTE 10 % (0-10); NEUTROPHIL 86 % (50-75); PLATELET ESTIMATE NORMAL (NORMAL); TOTAL CELLS COUNTED 100
[2017-02-06 12:20] LABS: GIANT PLATELETS PRESENT; HYPOCHROMIC SLIGHT; LARGE PLATELETS PRESENT; POLYCHROMIC SLIGHT
--- NOTE | 2017-02-06 14:29 | RAD ---
HISTORY: rapid heart rate COMPARISON: Comparison is made with 02/02/2017 FINDINGS: LUNGS: Mild pulmonary vascular congestion is again noted. PLEURA: No significant pleural effusion identified, no pneumothorax apparent. CARDIOVASCULAR: The cardiac silhouette is mildly enlarged. OSSEOUS STRUCTURES: Status post right humeral head replacement. VISUALIZED UPPER ABDOMEN: Normal. OTHER FINDINGS: None. IMPRESSION: Cardiomegaly and mild pulmonary vascular congestion.
[2017-02-06 15:08] LABS: SQUAMOUS EPITHIAL 5 /hpf (0-5); URINE BACTERIA OCC (<OCC)
[2017-02-06 15:19] LABS: URINE CLARITY Hazy (Clear); URINE COLOR YELLOW (YELLOW)
[2017-02-06 15:20] LABS: URINE BILIRUBIN NEGATIVE (NEGATIVE); URINE GLUCOSE (UA) Normal (Normal)
[2017-02-06 15:21] LABS: URINE BLOOD 1+ (NEGATIVE); URINE LEUKOCYTE ESTERASE 3+ Leu/uL (Negative); URINE NITRATE NEGATIVE (NEGATIVE); URINE PROTEIN 1+ mg/dL (NEGATIVE); URINE UROBILINOGEN Normal mg/dL (0.2-1.0)
--- NOTE | 2017-02-06 20:22 | CP.PCM.PN ---
Subjective - Date & Time of Evaluation Date of Evaluation: 02/06/17 Time of Evaluation: 20:21 - Subjective Subjective: Patient seen and evaluated Not in distress Not on AC for A fib due to fall risk and dementia Continue ASA and DVT prophylaxis Objective - Vital Signs/Intake and Output Vital Signs (last 24 hours): Temp Pulse Resp BP Pulse Ox 97 F L 82 20 112/67 96 02/06/17 15:25 02/06/17 18:02 02/06/17 15:25 02/06/17 15:25 02/06/17 15:25 Intake and Output: 02/06/17 02/07/17 18:59 06:59 Intake Total 900 Output Total 300 Balance 600 - Medications Medications: Current Medications Alprazolam (Xanax) 1 mg PO TID [facility] Last Admin: 02/06/17 17:13 Dose: 1 mg Aspirin (Aspirin Chewable) 81 mg PO DAILY [facility] Last Admin: 02/06/17 09:00 Dose: 81 mg Bupropion HCl (Wellbutrin Xl) 300 mg PO DAILY [facility] Last Admin: 02/06/17 09:00 Dose: 300 mg Cyclobenzaprine HCl (Flexeril) 10 mg PO BID [facility] Last Admin: 02/06/17 17:13 Dose: 10 mg Diltiazem HCl (Cardizem) 30 mg PO BID [facility] Last Admin: 02/06/17 17:13 Dose: 30 mg Enoxaparin Sodium (Lovenox) 40 mg SC DAILY [facility] Last Admin: 02/06/17 08:59 Dose: 40 mg Gabapentin (Neurontin) 300 mg PO TID [facility] Last Admin: 02/06/17 17:13 Dose: 300 mg Ciprofloxacin (Cipro 400mg/200ml Dsw) 400 mg in 200 mls @ 133 mls/hr IVPB Q12H [facility] Last Admin: 02/06/17 10:00 Dose: 133 mls/hr Sodium Chloride (Sodium Chloride 0.9%) 1,000 mls @ 100 mls/hr IV .Q10H [facility] Last Admin: 02/06/17 19:59 Dose: Not Given Isosorbide Mononitrate (Imdur Er) 60 mg PO DAILY [facility] Last Admin: 02/06/17 09:00 Dose: 60 mg Memantine (Namenda) 10 mg PO DAILY [facility] Last Admin: 02/06/17 09:00 Dose: 10 mg Metoprolol Succinate (Toprol Xl) 50 mg PO BID [facility] Last Admin: 02/06/17 17:13 Dose: 50 mg Morphine Sulfate (Morphine) 2 mg IV Q6 [facility] Last Admin: 02/06/17 17:14 Dose: 2 mg Pantoprazole Sodium (Protonix Ec Tab) 40 mg PO DAILY [facility] Last Admin: 02/06/17 09:00 Dose: 40 mg Tramadol HCl (Ultram) 25 mg PO Q8H [facility] Last Admin: 02/06/17 16:05 Dose: Not Given Vitamin A (Vitamin A & D Oint Ud Foilpak) 1 ea TOP Q4 PRN PRN Reason: Dry skin Last Admin: 02/06/17 09:01 Dose: 1 ea - Labs Labs: 02/06/17 11:40 02/06/17 11:40 PT 11.3 SECONDS (9.7-12.2) 02/02/17 16:08 INR 1.0 02/02/17 16:08 APTT 31 SECONDS (21-34) 02/02/17 16:08
[2017-02-06] MEDS ORDERED: Potassium Chloride 20 mEq/15 ml LIQ UD PO ONE (22:46)
[2017-02-07] MEDS: Tramadol 25 mg PO SCH ×2 (00:08→10:59)
[2017-02-07] MEDS: Sodium Chloride 0.9% 1,000 ML IV SCH ×2 (06:58→17:03)
[2017-02-07 07:12] LABS: ALB/GLOB RATIO 0.9 (1.0-2.1); ALT/SGPT 25 U/L (9-52); AST/SGOT 19 U/L (14-36); BLOOD UREA NITROGEN 10 mg/dL (7-17); CALCIUM 5.5 mg/dl (8.6-10.4); GFR AFRICAN-AMERICAN > 60; GFR NON-AFRICAN AMERICAN > 60
[2017-02-07 09:12] LABS: MAGNESIUM 1.4 mg/dL (1.6-2.3)
--- NOTE | 2017-02-07 09:18 | CP.PCM.PN ---
<Austin Goodman R - Last Filed: 02/07/17 15:46> Subjective - Date & Time of Evaluation Date of Evaluation: 02/07/17 Time of Evaluation: 09:04 - Subjective Subjective: PGY-[address] Koo. No acute events overnight. Patient complains of posterior neck pain which she said is improved since admission. She ate her breakfast this morning. She denies chest pain, shortness of breath, abdominal pain, fever, nausea, vomiting. Objective - Vital Signs/Intake and Output Vital Signs (last 24 hours): Temp Pulse Resp BP Pulse Ox 97.7 F 97 H 20 132/82 97 02/07/17 08:30 02/07/17 08:30 02/07/17 08:30 02/07/17 08:30 02/07/17 08:30 Intake and Output: 02/07/17 02/07/17 06:59 18:59 Intake Total 1100 Output Total 400 Balance 700 - Medications Medications: Current Medications Alprazolam (Xanax) 1 mg PO TID [facility] Last Admin: 02/06/17 17:13 Dose: 1 mg Aspirin (Aspirin Chewable) 81 mg PO DAILY [facility] Last Admin: 02/06/17 09:00 Dose: 81 mg Bupropion HCl (Wellbutrin Xl) 300 mg PO DAILY [facility] Last Admin: 02/06/17 09:00 Dose: 300 mg Cyclobenzaprine HCl (Flexeril) 10 mg PO BID [facility] Last Admin: 02/06/17 17:13 Dose: 10 mg Diltiazem HCl (Cardizem) 30 mg PO BID [facility] Last Admin: 02/06/17 17:13 Dose: 30 mg Enoxaparin Sodium (Lovenox) 40 mg SC DAILY [facility] Last Admin: 02/06/17 08:59 Dose: 40 mg Gabapentin (Neurontin) 300 mg PO TID [facility] Last Admin: 02/06/17 17:13 Dose: 300 mg Ciprofloxacin (Cipro 400mg/200ml Dsw) 400 mg in 200 mls @ 133 mls/hr IVPB Q12H [facility] Last Admin: 02/06/17 22:18 Dose: 133 mls/hr Potassium Chloride (Potassium Chloride 20 Meq/100 Ml) 20 meq in 100 mls @ 50 mls/hr IVPB ONCE ONE Stop: 02/07/17 11:01 Isosorbide Mononitrate (Imdur Er) 60 mg PO DAILY [facility] Last Admin: 02/06/17 09:00 Dose: 60 mg Memantine (Namenda) 10 mg PO DAILY [facility] Last Admin: 02/06/17 09:00 Dose: 10 mg Metoprolol Succinate (Toprol Xl) 50 mg PO BID [facility] Last Admin: 02/06/17 17:13 Dose: 50 mg Morphine Sulfate (Morphine) 2 mg IV Q6 [facility] Last Admin: 02/07/17 05:50 Dose: 2 mg Pantoprazole Sodium (Protonix Ec Tab) 40 mg PO DAILY [facility] Last Admin: 02/06/17 09:00 Dose: 40 mg Tramadol HCl (Ultram) 25 mg PO Q8H [facility] Last Admin: 02/07/17 00:08 Dose: Not Given Vitamin A (Vitamin A & D Oint Ud Foilpak) 1 ea TOP Q4 PRN PRN Reason: Dry skin Last Admin: 02/06/17 22:18 Dose: 1 ea - Labs Labs: 02/06/17 11:40 02/07/17 06:32 PT 11.3 SECONDS (9.7-12.2) 02/02/17 16:08 INR 1.0 02/02/17 16:08 APTT 31 SECONDS (21-34) 02/02/17 16:08 - Additional Findings Additional findings: - Constitutional Appears: Not in acute distress, Chronically Ill - Head Exam Additional comments: laceration on forehead closed with Dermabond - Eye Exam Pupil Exam: Fixed, Miosis Additional comments: legally blind - ENT Exam ENT Exam: Mucous Membranes Moist - Neck Exam Additional comments: Soft collar in place. Limited ROM secondary to pain - Respiratory Exam Respiratory Exam: Decreased Breath Sounds. absent: Rales, Rhonchi, Wheezes - Cardiovascular Exam Cardiovascular Exam: Irregular Rhythm, +S1, +S2 - GI/Abdominal Exam GI & Abdominal Exam: Soft, Normal Bowel Sounds. absent: Tenderness - Extremities Exam Extremities Exam: absent: Pedal Edema, Tenderness - Neurological Exam Neurological Exam: Alert, Awake, Oriented x3. absent: Motor Sensory Deficit - Psychiatric Exam Psychiatric exam: Anxious - Skin Skin Exam: Dry, Warm Assessment and Plan (1) Status post fall Status: Acute (2) Urinary tract infection Status: Acute (3) Anxiety Status: Acute (4) Depression Status: Acute (5) Atrial fibrillation Status: Chronic (6) Hypertension Status: Chronic (7) Dementia Status: Acute (8) Prophylactic antibiotic Status: Acute - Assessment and Plan (Free Text) Assessment: (1) Neck Pain Status post fall Neurology consult, Dr Shah * Dr. Shah recommended carotid ultrasound, MRI, and EEG. Due to patient's metal in the right shoulder, MRI is unable to be done. Neurosurgery consult, Dr Dsouza * Dr. Dsouza stated no neurosurgical involvement necessary. Continue PT/OT * Patient will need to go to [facility]. Per case sealer, daughter wants patient to go to LTAC after [facility]. Imaging: CT orbits w/o IV contrast 02/02: The orbits appear intact. Please note sagittal views demonstrate oblique lucency involving the inferior aspect of C2 which is suspected to reflect degenerative changes and possible vascular groove however nondisplaced fracture cannot be entirely excluded. Osseous demineralization limits evaluation. Correlate clinically. MRI of the cervical spine may be considered for further evaluation. CT head w/o contrast 02/02: No acute intracranial pathology identified. Incidental findings as above. CT Cervical spine w/o contrast 02/02: No fracture. Degenerative changes noted. Carotid Duplex Scan 02/03: Duplex scan does not suggest hemodynamically significant stenosis of right or left extracranial carotid arteries F/U EEG to rule out any electrographic seizures Meds: Tramadol 25 mg PO TID prn added 02/03 DISCONTINUED Flexerill 10 mg PO BID 02/07/17, added 02/03 DISCONTINUED Gabapentin 300 mg PO TID 02/07/17, added 02/03 (2) Atrial fibrillation Occasionally HR goes to 130s but recently controlled Chronic Due to patient being blind and having falls - she is not on anticoagulation at home, however we are giving her VTE prophylaxis Lovenox 40mg SC QD while here Echo 07/2016: in AFib; LA mildly dilated; Normal size RA/RV/LV; LVEF of 50-55%; Sclerotic trileaflet aortic valve; Mild concentric LVH; Indeterminate diastolic function; Metoprolol succinate 50mg PO BID Cardizem PO 30mg BID started 02/06/2017 Cardizem 5mg IV ONCE and Digoxin 0.25 IV ONCE given on 02/05/17 Aspirin 81mg PO QD (3) Urinary tract infection Urine Culture 02/03: NEGATIVE Urine Culture 02/02: + Klebsiella, sensitive to cipro UA 02/02: Many bacteria, 1+ blood, +Nitrate, 3+ leukocyte esterase, wbc 234, wbc 6 Meds: Rocephin 1g IV BID started 02/02 and stopped 02/04 as no study on sensitivity to rocephin Ciprofloxacin 400mg IV BID started 02/04 and recent urine culture shows sensitivity to cipro (4) Electrolyte Imbalance Hypocalcemia - relatively mild in the low normal range. Ionized calcium normal. Vitamin D 25-hydroxy level is repleted as patient has been on ergocalciferol as outpatient. Obtain PTH and reassess accordingly. F/U PTH. (5) Anxiety Xanax 1 mg PO TID (6) Depression Bupropion XL 300mg PO QD (7) Hypertension BP well controlled Isosorbide mononitrate 60mg PO QD (8) Dementia Memantine 10mg PO QD (9) Prophylactic antibiotic Protonix 40mg PO QD SCDs, Lovenox 40mg SC QD Heart healthy diet Disposition: Patient will need to go to [facility]. Per case sealer, daughter wants patient to go to LTAC after [facility]. <Valerio Koo - Last Filed: 02/07/17 19:16> Objective - Vital Signs/Intake and Output Vital Signs (last 24 hours): Temp Pulse Resp BP Pulse Ox 97.9 F 84 25 H 113/72 96 02/07/17 15:00 02/07/17 18:35 02/07/17 16:46 02/07/17 16:46 02/07/17 15:00 Intake and Output: 02/07/17 02/07/17 06:59 18:59 Intake Total 1100 Output Total 400 Balance 700 - Medications Medications: Current Medications Alprazolam (Xanax) 1 mg PO TID [facility] Last Admin: 02/07/17 17:04 Dose: Not Given Aspirin (Aspirin Chewable) 81 mg PO DAILY [facility] Last Admin: 02/07/17 10:51 Dose: 81 mg Bupropion HCl (Wellbutrin Xl) 300 mg PO DAILY [facility] Last Admin: 02/07/17 10:50 Dose: 300 mg Diltiazem HCl (Cardizem) 30 mg PO BID [facility] Last Admin: 02/07/17 17:03 Dose: Not Given Enoxaparin Sodium (Lovenox) 40 mg SC DAILY [facility] Last Admin: 02/07/17 10:50 Dose: 40 mg Ciprofloxacin (Cipro 400mg/200ml Dsw) 400 mg in 200 mls @ 133 mls/hr IVPB Q12H [facility] Last Admin: 02/07/17 11:10 Dose: 133 mls/hr Sodium Chloride (Sodium Chloride 0.9%) 1,000 mls @ 80 mls/hr IV .[id number] [facility] Last Admin: 02/07/17 17:03 Dose: Not Given Isosorbide Mononitrate (Imdur Er) 60 mg PO DAILY [facility] Last Admin: 02/07/17 10:50 Dose: 60 mg Memantine (Namenda) 10 mg PO DAILY [facility] Last Admin: 02/07/17 10:51 Dose: 10 mg Metoprolol Succinate (Toprol Xl) 50 mg PO BID [facility] Last Admin: 02/07/17 17:03 Dose: Not Given Pantoprazole Sodium (Protonix Ec Tab) 40 mg PO DAILY [facility] Last Admin: 02/07/17 10:56 Dose: 40 mg Tramadol HCl (Ultram) 25 mg PO Q8H PRN PRN Reason: Pain, severe (8-10) Vitamin A (Vitamin A & D Oint Ud Foilpak) 1 ea TOP Q4 PRN PRN Reason: Dry skin Last Admin: 02/06/17 22:18 Dose: 1 ea - Labs Labs: 02/07/17 11:56 02/07/17 11:56 PT 11.3 SECONDS (9.7-12.2) 02/02/17 16:08 INR 1.0 02/02/17 16:08 APTT 31 SECONDS (21-34) 02/02/17 16:08 Attending/Attestation - Attestation I have personally seen and examined this patient.: Yes I have fully participated in the care of the patient.: Yes I have reviewed all pertinent clinical information, including history, physical exam and plan: Yes Notes (Text): Seen and examined,patient was lethargic and sleepy today. Her morphine ,flexeril and gabapentin was discontinued this morning she remains sleepy,arousable,c/p shoulder pain,unable to move her right shoulder due to pain,tender shoulder we will ask orthopedic evaluation Her corrected calcium was low 7.0 and hypokalemic.seen by therapy assistant ABG done PH 7.4/33/114/sat 99% chest x ray with congestion,s/p Dyspnea ,stop fluids h/o SABINE,copd/asthma with rales pulmonary consult from DR Yanez No Fever,has high abc.do blood culture Do blood culture ordered s/p Fall and concussion. I will repeat head CT scan tonight d/w Patient's daughter Faviola.patient has history of sleep apnea. 02/07/17 19:16
[2017-02-07] MEDS: Enoxaparin 40 mg Syringe SC SCH (10:50)
[2017-02-07] MEDS: buPROPion 150 mg/24 Hours XL Tab PO SCH (10:50)
[2017-02-07] MEDS: Metoprolol Succinate 50 mg XL Tab PO SCH ×2 (10:51→17:03)
[2017-02-07] MEDS: Pantoprazole 40 mg EC Tab PO SCH (10:56)
[2017-02-07] MEDS ORDERED: Tramadol 25 mg PO PRN (11:05)
[2017-02-07] MEDS: Ciprofloxacin 400mg/200ml D5W 400 MG/200 ML BAG IVPB SCH ×2 (11:10→22:12)
[2017-02-07 12:12] LABS: BASO % 0.1 % (0.0-2.0); EOS % 0.1 % (0.0-4.0); HEMOGLOBIN 11.5 g/dL (11.0-16.0); LYMPH # 0.6 K/uL (1.0-4.3); LYMPH % 3.3 % (20.0-40.0); MEAN CELL VOLUME 93.6 fL (81.0-99.0); MEAN CORPUSCULAR HEMOGLOBIN 31.5 pg (27.0-31.0); MEAN CORPUSCULAR HGB CONC 33.7 g/dL (33.0-37.0); MEAN PLATELET VOLUME 10.2 fL (7.2-11.7); MONO # 2.1 K/uL (0.0-0.8); NEUT # 14.5 K/uL (1.8-7.0); NEUT % 84.5 % (50.0-75.0); PLATELET COUNT 138 K/uL (130-400); RBC 3.64 Mil/uL (3.80-5.20); RED CELL DISTRIBUTION WIDTH 14.1 % (11.5-14.5); WHITE BLOOD COUNT 17.1 K/uL (4.8-10.8)
[2017-02-07 12:41] LABS: ANISOCYTOSIS SLIGHT; HYPOCHROMIC SLIGHT; LARGE PLATELETS PRESENT; LYMPHOCYTE 4 % (20-40); MONOCYTE 15 % (0-10); NEUTROPHIL 81 % (50-75); PLATELET ESTIMATE NORMAL (NORMAL); POIKILOCYTOSIS SLIGHT; POLYCHROMIC SLIGHT; TOTAL CELLS COUNTED 100
[2017-02-07 12:43] LABS: SQUAMOUS EPITHIAL 5 /hpf (0-5); URINE BACTERIA RARE (<OCC); URINE BILIRUBIN NEGATIVE (NEGATIVE); URINE BLOOD 1+ (NEGATIVE); URINE CLARITY Hazy (Clear); URINE COLOR Yellow (YELLOW); URINE GLUCOSE (UA) NORMAL (Normal); URINE LEUKOCYTE ESTERASE 3+ Leu/uL (Negative); URINE NITRATE NEGATIVE (NEGATIVE); URINE PROTEIN NEGATIVE (NEGATIVE); URINE UROBILINOGEN NORMAL mg/dL (0.2-1.0)
[2017-02-07 12:46] LABS: ALBUMIN 2.8 g/dL (3.5-5.0); ALT/SGPT 30 U/L (9-52); AST/SGOT 30 U/L (14-36); BLOOD UREA NITROGEN 12 mg/dL (7-17); CALCIUM 7.5 mg/dl (8.6-10.4); GFR AFRICAN-AMERICAN > 60; GFR NON-AFRICAN AMERICAN > 60; MAGNESIUM 1.9 mg/dL (1.6-2.3); URIC ACID 2.5 mg/dL (2.2-7.5)
--- NOTE | 2017-02-07 13:24 | CARD ---
APPROVED REPORT EKG Measurement Heart [id number] <Conclusion> Atrial flutter with variable AV block ST & T wave abnormality, consider inferior ischemia ST & T wave abnormality, consider anterolateral ischemia Abnormal ECG
[2017-02-07] MEDS: Potassium Chloride 20 mEq/15 ml LIQ UD PO ONE ×2 (13:30→14:18)
--- NOTE | 2017-02-07 13:47 | CON ---
DATE: NEPHROLOGY CONSULTATION HISTORY OF PRESENT ILLNESS: A 71-year-old female with past medical history of hypertension; AFib, not on anticoagulation; COPD; anxiety/depression and legally blind, brought in by homemaker after a fall that occurred outside her home. The patient's hospitalization complicated by AFib with RVR. Nephrology is being consulted for electrolyte imbalance. History from the patient is limited as she is having difficulty verbalizing and is thought to be more lethargic per primary attending. The patient denies any associated dizziness with her fall. Denies any recent nausea, vomiting or diarrhea. The patient per her chart review had been having lightheadedness and decreased appetite several days before presentation, also with increased urinary frequency, currently being treated for UTI. PAST MEDICAL HISTORY: As above. FAMILY HISTORY: Father, pancreatic cancer. Mother, heart disease. Brother, diabetes. SOCIAL HISTORY: Former smoker. Quit in the 80s. REVIEW OF SYSTEMS: CONSTITUTIONAL: Decreased p.o. intake. HEENT: Legally blind. Denies any sore throat or hoarseness. RESPIRATORY: Reports currently being a little short of breath. CARDIOVASCULAR: AFib with RVR during this admission. GASTROINTESTINAL: No nausea, vomiting, diarrhea. GENITOURINARY: As per HPI. MUSCULOSKELETAL: Having right shoulder pain. SKIN: Denies any itching or rashes. NEUROLOGIC: No numbness of feet. PSYCHIATRIC: History of depression. PHYSICAL EXAMINATION: GENERAL: No distress. Able to converse albeit with difficulty and lethargy. VITAL SIGNS: Vitals this morning, blood pressure 132/82, heart rate 97, respirations 20, temperature 97.7, O2 sat 97% on room air. HEENT: Moist mucous membranes. Dry tongue. No scleral icterus. No cervical lymphadenopathy. RESPIRATORY: Extensive right-sided rales present, clear on left. Somewhat tachypneic. CARDIOVASCULAR: Heart sounds S1 and S2 normal. Regular rate and rhythm. No murmurs. No gallops. No rubs. GASTROINTESTINAL: Abdomen soft, nontender and nondistended. GENITOURINARY: No bladder distention. EXTREMITIES: No leg edema. MUSCULOSKELETAL: Right shoulder tenderness. Bilateral lower leg tenderness to palpation. SKIN: Warm. No cyanosis. PSYCHIATRIC: Normal mood. Normal affect. Not agitated. LABORATORY DATA: Chest x-ray from yesterday showing increased interstitial markings. Labs this morning, CBC: WBC 17.1, hemoglobin 11.5, hematocrit 34.0, platelets 138. Chemistry panel: Sodium 134; potassium 3.6, increased from 2.9 earlier this morning; chloride 102; bicarb 27; BUN 12; creatinine 0.5; glucose 82; calcium 7.5; magnesium 1.9; AST 30; ALT 30; albumin 2.8. Vitamin D 25-hydroxy level 37.3. Urine studies: Urine sodium 67, urine potassium 63.6, osmolality 652, creatinine 76.0, calcium 5.9. ASSESSMENT AND PLAN: 1. Hypokalemia. Etiology is not evident at this time. No drugs identifiable, which maybe contributory. No gastrointestinal losses either. Likely with renal potassium wasting. Doubt any volume depletion as the patient has been on adequate intravenous fluids. At this time, we will continue to supplement potassium via p.o. route with goal of keeping potassium around 4.0 especially with history of atrial fibrillation with rapid ventricular response. 2. Hypocalcemia. Relatively mild with corrected calcium in the low normal range. Vitamin D 25-hydroxy level is repleted as the patient has been on ergocalciferol as outpatient. We will obtain PTH level and reassess accordingly. 3. The patient with questionable diastolic dysfunction on previous echocardiogram. Chest x-ray being read as increased pulmonary vascular congestion. We will obtain repeat chest x-ray before continuing with addition of intravenous fluids. 4. Hypertension. Blood pressure currently controlled on metoprolol XL 50 mg b.i.d., Imdur 60 mg daily, diltiazem 30 mg b.i.d. Continue the same medications. Thank you for this consult. We will be following up closely. Richard Arenas MD
--- NOTE | 2017-02-07 16:31 | RAD ---
HISTORY: worsening CHF? COMPARISON: Chest x-ray performed 02/06/17 TECHNIQUE: Chest, one view. FINDINGS: Examination markedly limited by hypoinflation, patient obliquity, as well as habitus, in particular the left lateral lower laurie thorax. LUNGS: Probable mild pulmonary venous congestion. No focal consolidation. Please note that chest x-ray has limited sensitivity for the detection of pulmonary masses. PLEURA: No significant pleural effusion identified. No definite pneumothorax . CARDIOVASCULAR: Heart size appears borderline enlarged. OSSEOUS STRUCTURES: Right shoulder arthroplasty, partially imaged. VISUALIZED UPPER ABDOMEN: Unremarkable. OTHER FINDINGS: None. IMPRESSION: Limited study. Borderline cardiomegaly. Probable mild pulmonary venous congestion.
[2017-02-07 17:36] LABS: ARTERIAL BLOOD GAS HCO3 26.5 mmol/L (21-28); ARTERIAL BLOOD GAS HEMOGLOBIN 10.5 g/dL (11.7-17.4); ARTERIAL BLOOD GAS O2 SAT 99.2 % (95-98); ARTERIAL BLOOD GAS PCO2 33 mm/Hg (35-45); ARTERIAL BLOOD GAS PH 7.49 (7.35-7.45); ARTERIAL BLOOD GAS PO2 114 mm/Hg (80-100); ARTERIAL BLOOD GAS TCO2 26.1 mmol/L (22-28)
--- NOTE | 2017-02-07 19:59 | CP.PCM.CON ---
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) - RENAL Hx Chronic Kidney Disease: No - ENDOCRINE/METABOLIC Hx Endocrine Disorders: No - HEMATOLOGICAL/ONCOLOGICAL Hx Blood Disorders: No - INTEGUMENTARY Hx Dermatological Problems: No - MUSCULOSKELETAL/RHEUMATOLOGICAL Hx Musculoskeletal Disorders: Yes Hx Arthritis: Yes Hx Falls: Yes Hx Fractures: Yes (Right Shoulder) Hx Osteoporosis: Yes - GASTROINTESTINAL Hx Gastrointestinal Disorders: Yes Hx Gastritis: Yes - GENITOURINARY/GYNECOLOGICAL Hx Genitourinary Disorders: No - PSYCHIATRIC Hx Psychophysiologic Disorder: Yes Hx Anxiety: Yes Hx Depression: Yes Hx Substance Use: No - SURGICAL HISTORY Hx Surgeries: Yes Hx Appendectomy: Yes Hx Cholecystectomy: Yes - ANESTHESIA Hx Anesthesia: Yes Hx Anesthesia Reactions: No Hx Malignant Hyperthermia: No Has any member of the family had a problem w/ anesthesia?: No Meds Allergies/Adverse Reactions: Allergies Allergy/AdvReac Type Severity Reaction Status Date / Time Sulfa (Sulfonamide Allergy ANAPHYLAXIS Verified 02/02/17 14:46 Antibiotics) sulfasalazine Allergy ITCHING Verified 02/02/17 14:46 - Medications Medications: Current Medications Albuterol/Ipratropium (Duoneb 3 Mg/0.5 Mg (3 Ml) Ud) 3 ml INH RQ8 [facility] Alprazolam (Xanax) 1 mg PO TID [facility] Last Admin: 02/07/17 17:04 Dose: Not Given Aspirin (Aspirin Chewable) 81 mg PO DAILY [facility] Last Admin: 02/07/17 10:51 Dose: 81 mg Bupropion HCl (Wellbutrin Xl) 300 mg PO DAILY [facility] Last Admin: 02/07/17 10:50 Dose: 300 mg Diltiazem HCl (Cardizem) 30 mg PO BID [facility] Last Admin: 02/07/17 17:03 Dose: Not Given Enoxaparin Sodium (Lovenox) 40 mg SC DAILY [facility] Last Admin: 02/07/17 10:50 Dose: 40 mg Ciprofloxacin (Cipro 400mg/200ml Dsw) 400 mg in 200 mls @ 133 mls/hr IVPB Q12H [facility] Last Admin: 02/07/17 11:10 Dose: 133 mls/hr Sodium Chloride (Sodium Chloride 0.9%) 1,000 mls @ 80 mls/hr IV .[id number] [facility] Last Admin: 02/07/17 17:03 Dose: Not Given Isosorbide Mononitrate (Imdur Er) 60 mg PO DAILY [facility] Last Admin: 02/07/17 10:50 Dose: 60 mg Memantine (Namenda) 10 mg PO DAILY [facility] Last Admin: 02/07/17 10:51 Dose: 10 mg Metoprolol Succinate (Toprol Xl) 50 mg PO BID [facility] Last Admin: 02/07/17 17:03 Dose: Not Given Pantoprazole Sodium (Protonix Ec Tab) 40 mg PO DAILY [facility] Last Admin: 02/07/17 10:56 Dose: 40 mg Tramadol HCl (Ultram) 25 mg PO Q8H PRN PRN Reason: Pain, severe (8-10) Vitamin A (Vitamin A & D Oint Ud Foilpak) 1 ea TOP Q4 PRN PRN Reason: Dry skin Last Admin: 02/06/17 22:18 Dose: 1 ea Results - Vital Signs Recent Vital Signs: Last Vital Signs Temp 97.9 F 02/07/17 15:00 Pulse 84 02/07/17 18:35 Resp 25 H 02/07/17 16:46 BP 113/72 02/07/17 16:46 Pulse Ox 96 02/07/17 15:00 - Labs Result Diagrams: 02/07/17 11:56 02/07/17 11:56 Labs: Laboratory Results - last 24 hr 02/07/17 02/07/17 02/07/17 06:32 11:56 11:56 WBC 17.1 H RBC 3.64 L Hgb 11.5 Hct 34.0 MCV 93.6 MCH 31.5 H MCHC 33.7 RDW 14.1 Plt Count 138 MPV 10.2 Neut % (Auto) 84.5 H Lymph % (Auto) 3.[address] [place] % (Auto) 12.0 H Eos % (Auto) 0.1 Baso % (Auto) 0.1 Neut # 14.5 H Lymph # 0.[address] [place] # 2.1 H Eos # 0.0 Baso # 0.0 Neutrophils % (Manual) 81 H Lymphocytes % (Manual) 4 L Monocytes % (Manual) 15 H Platelet Estimate Normal Large Platelets Present Polychromasia Slight Hypochromasia (manual) Slight Poikilocytosis (manual Slight Anisocytosis (manual) Slight D-Dimer, Quantitative Puncture Site pCO2 pO2 HCO3 ABG pH ABG Total CO2 ABG O2 Saturation ABG Base Excess ABG Hemoglobin ABG Carboxyhemoglobin POC ABG HHb (Measured) ABG Methemoglobin Sam Test Hgb O2 Saturation Liter Flow Sodium 138 134 Potassium 2.9 L 3.6 Chloride 113 H 102 Carbon Dioxide 22 27 Anion Gap 6 L 9 L BUN 10 12 Creatinine 0.4 L 0.5 L Est GFR ( Amer) > 60 > 60 Est GFR (Non-Af Amer) > 60 > 60 Random Glucose 71 82 Uric Acid Calcium 5.5 L* D 7.5 L Phosphorus Magnesium 1.4 L Total Bilirubin 0.9 1.0 AST 19 30 ALT 25 30 Alkaline Phosphatase 88 149 H D Total Protein 4.2 L 5.7 L Albumin 2.0 L D 2.8 L D Globulin 2.2 2.9 Albumin/Globulin Ratio 0.9 L 1.0 25-OH Vitamin D Total Urine Color Urine Clarity Urine pH Ur Specific [place] Urine Protein Urine Glucose (UA) Urine Ketones Urine Blood Urine Nitrate Urine Bilirubin Urine Urobilinogen Ur Leukocyte Esterase Urine WBC (Auto) Urine RBC (Auto) Ur Squamous Epith Cells Urine Bacteria Urine Osmolality Ur Random Creatinine Ur Random Sodium Ur Random Potassium Ur Random Calcium 02/07/17 02/07/17 02/07/17 11:56 11:56 12:07 WBC RBC Hgb Hct MCV MCH MCHC RDW Plt Count MPV Neut % (Auto) Lymph % (Auto) [place] % (Auto) Eos % (Auto) Baso % (Auto) Neut # Lymph # [place] # Eos # Baso # Neutrophils % (Manual) Lymphocytes % (Manual) Monocytes % (Manual) Platelet Estimate Large Platelets Polychromasia Hypochromasia (manual) Poikilocytosis (manual Anisocytosis (manual) D-Dimer, Quantitative Puncture Site pCO2 pO2 HCO3 ABG pH ABG Total CO2 ABG O2 Saturation ABG Base Excess ABG Hemoglobin ABG Carboxyhemoglobin POC ABG HHb (Measured) ABG Methemoglobin Sam Test Hgb O2 Saturation Liter Flow Sodium Potassium Chloride Carbon Dioxide Anion Gap BUN Creatinine Est GFR ( Amer) Est GFR (Non-Af Amer) Random Glucose Uric Acid 2.5 Calcium Phosphorus 2.6 Magnesium 1.9 Total Bilirubin AST ALT Alkaline Phosphatase Total Protein Albumin Globulin Albumin/Globulin Ratio 25-OH Vitamin D Total 37.3 Urine Color Urine Clarity Urine pH Ur Specific [place] Urine Protein Urine Glucose (UA) Urine Ketones Urine Blood Urine Nitrate Urine Bilirubin Urine Urobilinogen Ur Leukocyte Esterase Urine WBC (Auto) Urine RBC (Auto) Ur Squamous Epith Cells Urine Bacteria Urine Osmolality Ur Random Creatinine 76.0 Ur Random Sodium Ur Random Potassium Ur Random Calcium 5.9 02/07/17 02/07/17 02/07/17 12:07 12:07 17:32 WBC RBC Hgb Hct MCV MCH MCHC RDW Plt Count MPV Neut % (Auto) Lymph % (Auto) [place] % (Auto) Eos % (Auto) Baso % (Auto) Neut # Lymph # [place] # Eos # Baso # Neutrophils % (Manual) Lymphocytes % (Manual) Monocytes % (Manual) Platelet Estimate Large Platelets Polychromasia Hypochromasia (manual) Poikilocytosis (manual Anisocytosis (manual) D-Dimer, Quantitative Puncture Site Lba pCO2 33 L pO2 114 H HCO3 26.5 ABG pH 7.49 H ABG Total CO2 26.1 ABG O2 Saturation 99.2 H ABG Base Excess 2.0 ABG Hemoglobin 10.5 L ABG Carboxyhemoglobin 2.5 H POC ABG HHb (Measured) 0.8 ABG Methemoglobin 1.1 Sam Test Na Hgb O2 Saturation 95.7 Liter Flow 2.0 Sodium Potassium Chloride Carbon Dioxide Anion Gap BUN Creatinine Est GFR ( Amer) Est GFR (Non-Af Amer) Random Glucose Uric Acid Calcium Phosphorus Magnesium Total Bilirubin AST ALT Alkaline Phosphatase Total Protein Albumin Globulin Albumin/Globulin Ratio 25-OH Vitamin D Total Urine Color Yellow Urine Clarity Hazy Urine pH 5.0 Ur Specific [place] 1.018 Urine Protein Negative Urine Glucose (UA) Normal Urine Ketones Trace Urine Blood 1+ H Urine Nitrate Negative Urine Bilirubin Negative Urine Urobilinogen Normal Ur Leukocyte Esterase 3+ H Urine WBC (Auto) 86 H Urine RBC (Auto) 5 H Ur Squamous Epith Cells 5 Urine Bacteria Rare Urine Osmolality 652 Ur Random Creatinine Ur Random Sodium 67 Ur Random Potassium 53.6 Ur Random Calcium 02/07/17 19:38 WBC RBC Hgb Hct MCV MCH MCHC RDW Plt Count MPV Neut % (Auto) Lymph % (Auto) [place] % (Auto) Eos % (Auto) Baso % (Auto) Neut # Lymph # [place] # Eos # Baso # Neutrophils % (Manual) Lymphocytes % (Manual) Monocytes % (Manual) Platelet Estimate Large Platelets Polychromasia Hypochromasia (manual) Poikilocytosis (manual Anisocytosis (manual) D-Dimer, Quantitative 826 H Puncture Site pCO2 pO2 HCO3 ABG pH ABG Total CO2 ABG O2 Saturation ABG Base Excess ABG Hemoglobin ABG Carboxyhemoglobin POC ABG HHb (Measured) ABG Methemoglobin Sam Test Hgb O2 Saturation Liter Flow Sodium Potassium Chloride Carbon Dioxide Anion Gap BUN Creatinine Est GFR ( Amer) Est GFR (Non-Af Amer) Random Glucose Uric Acid Calcium Phosphorus Magnesium Total Bilirubin AST ALT Alkaline Phosphatase Total Protein Albumin Globulin Albumin/Globulin Ratio 25-OH Vitamin D Total Urine Color Urine Clarity Urine pH Ur Specific [place] Urine Protein Urine Glucose (UA) Urine Ketones Urine Blood Urine Nitrate Urine Bilirubin Urine Urobilinogen Ur Leukocyte Esterase Urine WBC (Auto) Urine RBC (Auto) Ur Squamous Epith Cells Urine Bacteria Urine Osmolality Ur Random Creatinine Ur Random Sodium Ur Random Potassium Ur Random Calcium
--- NOTE | 2017-02-07 20:09 | CARD ---
APPROVED REPORT EKG Measurement Heart [id number] <Conclusion> Undetermined rhythm Nonspecific ST abnormality Abnormal ECG
--- NOTE | 2017-02-07 20:47 | CP.PCM.PN ---
Subjective - Date & Time of Evaluation Date of Evaluation: 02/07/17 Time of Evaluation: 11:15 - Subjective Subjective: Patient seen and evaluated Not in distress Dementia with multiple falls Not on AC for A Fib dure to multiple falls Objective - Vital Signs/Intake and Output Vital Signs (last 24 hours): Temp Pulse Resp BP Pulse Ox 97.9 F 84 25 H 113/72 96 02/07/17 15:00 02/07/17 18:35 02/07/17 16:46 02/07/17 16:46 02/07/17 15:00 - Medications Medications: Current Medications Albuterol/Ipratropium (Duoneb 3 Mg/0.5 Mg (3 Ml) Ud) 3 ml INH RQ8 [facility] Alprazolam (Xanax) 1 mg PO TID [facility] Last Admin: 02/07/17 17:04 Dose: Not Given Aspirin (Aspirin Chewable) 81 mg PO DAILY [facility] Last Admin: 02/07/17 10:51 Dose: 81 mg Bupropion HCl (Wellbutrin Xl) 300 mg PO DAILY [facility] Last Admin: 02/07/17 10:50 Dose: 300 mg Diltiazem HCl (Cardizem) 30 mg PO BID [facility] Last Admin: 02/07/17 17:03 Dose: Not Given Enoxaparin Sodium (Lovenox) 40 mg SC DAILY [facility] Last Admin: 02/07/17 10:50 Dose: 40 mg Ciprofloxacin (Cipro 400mg/200ml Dsw) 400 mg in 200 mls @ 133 mls/hr IVPB Q12H [facility] Last Admin: 02/07/17 11:10 Dose: 133 mls/hr Sodium Chloride (Sodium Chloride 0.9%) 1,000 mls @ 80 mls/hr IV .[id number] [facility] Last Admin: 02/07/17 17:03 Dose: Not Given Isosorbide Mononitrate (Imdur Er) 60 mg PO DAILY [facility] Last Admin: 02/07/17 10:50 Dose: 60 mg Memantine (Namenda) 10 mg PO DAILY [facility] Last Admin: 02/07/17 10:51 Dose: 10 mg Metoprolol Succinate (Toprol Xl) 50 mg PO BID [facility] Last Admin: 02/07/17 17:03 Dose: Not Given Pantoprazole Sodium (Protonix Ec Tab) 40 mg PO DAILY [facility] Last Admin: 02/07/17 10:56 Dose: 40 mg Tramadol HCl (Ultram) 25 mg PO Q8H PRN PRN Reason: Pain, severe (8-10) Vitamin A (Vitamin A & D Oint Ud Foilpak) 1 ea TOP Q4 PRN PRN Reason: Dry skin Last Admin: 02/06/17 22:18 Dose: 1 ea - Labs Labs: 02/07/17 11:56 02/07/17 11:56 PT 11.3 SECONDS (9.7-12.2) 02/02/17 16:08 INR 1.0 02/02/17 16:08 APTT 31 SECONDS (21-34) 02/02/17 16:08
[2017-02-07] MEDS: Albuterol-Ipratrop 3 mg / 0.5 (3 ml) UD INH SCH (21:18)
[2017-02-08] MEDS: Albuterol-Ipratrop 3 mg / 0.5 (3 ml) UD INH SCH ×3 (00:18→20:21)
[2017-02-08] MEDS ORDERED: Iodixanol 320 MG/ML 100 ML BOTTLE IV ONE (00:23)
--- NOTE | 2017-02-08 01:25 | CT ---
EXAM: CT Head Without Intravenous Contrast CLINICAL HISTORY: 71 years old, female; Pain; Headache and other: Chanfe mental status; Patient HX: 02-02-17 images sent; Additional info: Change in mental status TECHNIQUE: Axial computed tomography images of the head/brain without intravenous contrast. All CT scans at this facility use one or more dose reduction techniques, viz.: automated exposure control; ma/kV adjustment per patient size (including targeted exams where dose is matched to indication; i.e. head); or iterative reconstruction technique. Coronal and sagittal reformatted images were created and reviewed. COMPARISON: CT - HEAD W/O CONTRAST 2017-02-02 16:29 FINDINGS: Limitations: Suboptimal positioning. Brain: Moderate atrophy. No intracranial hemorrhage. No mass. Minimal decreased attenuation within periventricular white matter. No definite edema. Ventricles: No hydrocephalus. Bones/joints: No acute fracture. Soft tissues: Minimal scalp swelling. Vasculature: Minimal atherosclerotic disease of intracranial arteries. Sinuses: No acute sinusitis. Mastoid air cells: No mastoid effusion. Orbits: Unremarkable as visualized. IMPRESSION: 1. Nonspecific white matter changes. Acute infarction may be CT occult within first 24 hours. If a focal deficit persists, consider followup CT or MRI for further evaluation. 2. Incidental/non-acute findings are described above.
--- NOTE | 2017-02-08 01:34 | CT ---
EXAM: CT Angiography Chest With Intravenous Contrast CLINICAL HISTORY: 71 years old, female; Pain; Chest pain; Prior surgery; Additional info: Elevated d dimer. R/O pe TECHNIQUE: Axial computed tomographic angiography images of the chest with intravenous contrast using pulmonary embolism protocol. All CT scans at this facility use one or more dose reduction techniques, viz.: automated exposure control; ma/kV adjustment per patient size (including targeted exams where dose is matched to indication; i.e. head); or iterative reconstruction technique. MIP reconstructed images were created and reviewed. Coronal and sagittal reformatted images were created and reviewed. CONTRAST: 100 mL of visipaque administered intravenously. COMPARISON: No relevant prior studies available. FINDINGS: Limitations: Streak artifact - mild. Motion artifact - mild to moderate. Pulmonary arteries: No definite pulmonary embolism. Aorta: Mild atherosclerotic disease. No aneurysm. Lungs: Mild peripheral consolidation with associated volume loss within RIGHT lower lobe. Moderate patchy and confluent consolidation with associated volume loss within LEFT lower lobe. Mosaic pattern of lung parenchyma with interlobular septal thickening. 0.3 cm LEFT upper lobe nodule. Pleural space: Small bilateral pleural effusions. No pneumothorax. Heart: Mild cardiomegaly. No significant pericardial effusion. Mediastinum: Small hiatal hernia. Bones/joints: Degenerative changes of spine. No acute fracture. Soft tissues: Unremarkable. Lymph nodes: No pathologically enlarged lymph nodes. Gallbladder and bile ducts: Cholecystectomy. IMPRESSION: 1. No definite CT evidence of pulmonary embolism. 2. Findings compatible with interstitial edema. Clinical correlation is needed. 3. Bibasilar atelectasis. Superimposed pneumonia within left lower lobe not excluded. 4. Pulmonary nodules. For low-risk patients, no follow-up is necessary. For high-risk patients (smoking history or other known risk factors) an optional CT at 12 months could be performed. 5. Incidental/non-acute findings are described above.
[2017-02-08 07:33] LABS: BASO # 0.1 K/uL (0.0-0.2); BASO % 0.3 % (0.0-2.0); EOS # 0.1 K/uL (0.0-0.7); EOS % 0.4 % (0.0-4.0); HEMOGLOBIN 11.1 g/dL (11.0-16.0); LYMPH # 0.6 K/uL (1.0-4.3); LYMPH % 3.8 % (20.0-40.0); MEAN CELL VOLUME 93.2 fL (81.0-99.0); MEAN CORPUSCULAR HEMOGLOBIN 31.4 pg (27.0-31.0); MEAN CORPUSCULAR HGB CONC 33.7 g/dL (33.0-37.0); MONO # 1.9 K/uL (0.0-0.8); MONO % 12.3 % (0.0-10.0); NEUT % 83.2 % (50.0-75.0); PLATELET COUNT 152 K/uL (130-400); RBC 3.52 Mil/uL (3.80-5.20); RED CELL DISTRIBUTION WIDTH 13.9 % (11.5-14.5); WHITE BLOOD COUNT 15.6 K/uL (4.8-10.8)
--- NOTE | 2017-02-08 07:46 | CP.PCM.PN ---
<Austin Goodman R - Last Filed: 02/08/17 17:03> Subjective - Date & Time of Evaluation Date of Evaluation: 02/08/17 Time of Evaluation: 07:44 - Subjective Subjective: PGY-[address] Koo. Patient was agitated last night - she pulled out her saline lock and removed her telemetry and stated she wants to go home. She was very upset that we discontinued some of her medications yesterday due to her drowsy state. She currently denies chest pain, fever, abdominal pain, nausea, vomiting. Her only complaint is her right shoulder pain which is chronic. Objective - Vital Signs/Intake and Output Vital Signs (last 24 hours): Temp Pulse Resp BP Pulse Ox 98.6 F 106 H 22 133/85 97 02/07/17 23:00 02/08/17 03:50 02/08/17 05:32 02/08/17 01:05 02/07/17 23:00 Intake and Output: 02/08/17 02/08/17 06:59 18:59 Intake Total 200 Output Total 700 Balance -500 - Medications Medications: Current Medications Acetaminophen (Tylenol 325mg Tab) 650 mg PO Q6 PRN PRN Reason: Pain, Mild (1-3) Last Admin: 02/08/17 05:27 Dose: 650 mg Albuterol/Ipratropium (Duoneb 3 Mg/0.5 Mg (3 Ml) Ud) 3 ml INH RQ8 [facility] Last Admin: 02/08/17 00:18 Dose: 3 ml Alprazolam (Xanax) 1 mg PO TID [facility] Last Admin: 02/07/17 17:04 Dose: Not Given Aspirin (Aspirin Chewable) 81 mg PO DAILY [facility] Last Admin: 02/07/17 10:51 Dose: 81 mg Bupropion HCl (Wellbutrin Xl) 300 mg PO DAILY [facility] Last Admin: 02/07/17 10:50 Dose: 300 mg Diltiazem HCl (Cardizem) 30 mg PO BID [facility] Last Admin: 02/07/17 17:03 Dose: Not Given Enoxaparin Sodium (Lovenox) 40 mg SC DAILY [facility] Last Admin: 02/07/17 10:50 Dose: 40 mg Ciprofloxacin (Cipro 400mg/200ml Dsw) 400 mg in 200 mls @ 133 mls/hr IVPB Q12H [facility] Last Admin: 02/07/17 22:12 Dose: 133 mls/hr Sodium Chloride (Sodium Chloride 0.9%) 1,000 mls @ 80 mls/hr IV .[id number] [facility] Last Admin: 02/07/17 17:03 Dose: Not Given Isosorbide Mononitrate (Imdur Er) 60 mg PO DAILY [facility] Last Admin: 02/07/17 10:50 Dose: 60 mg Memantine (Namenda) 10 mg PO DAILY [facility] Last Admin: 02/07/17 10:51 Dose: 10 mg Metoprolol Succinate (Toprol Xl) 50 mg PO BID [facility] Last Admin: 02/07/17 17:03 Dose: Not Given Pantoprazole Sodium (Protonix Ec Tab) 40 mg PO DAILY [facility] Last Admin: 02/07/17 10:56 Dose: 40 mg Tramadol HCl (Ultram) 25 mg PO Q8H PRN PRN Reason: Pain, severe (8-10) Vitamin A (Vitamin A & D Oint Ud Foilpak) 1 ea TOP Q4 PRN PRN Reason: Dry skin Last Admin: 02/06/17 22:18 Dose: 1 ea - Labs Labs: 02/08/17 07:24 02/07/17 11:56 PT 11.3 SECONDS (9.7-12.2) 02/02/17 16:08 INR 1.0 02/02/17 16:08 APTT 31 SECONDS (21-34) 02/02/17 16:08 - Additional Findings Additional findings: - Constitutional Appears: Not in acute distress, Chronically Ill - Head Exam Additional comments: laceration on forehead closed with Dermabond - Eye Exam Pupil Exam: Fixed, Miosis Additional comments: legally blind - ENT Exam ENT Exam: Mucous Membranes Moist - Neck Exam Additional comments: Soft collar in place. Limited ROM secondary to pain - Respiratory Exam Respiratory Exam: Decreased Breath Sounds. absent: Rales, Rhonchi, Wheezes - Cardiovascular Exam Cardiovascular Exam: Irregular Rhythm, +S1, +S2 - GI/Abdominal Exam GI & Abdominal Exam: Soft, Normal Bowel Sounds. absent: Tenderness - Extremities Exam Extremities Exam: absent: Pedal Edema, Tenderness - Neurological Exam Neurological Exam: Alert, Awake, Oriented x3. absent: Motor Sensory Deficit - Psychiatric Exam Psychiatric exam: Anxious - Skin Skin Exam: Dry, Warm Assessment and Plan (1) Status post fall Status: Acute (2) Urinary tract infection Status: Acute (3) Anxiety Status: Acute (4) Depression Status: Acute (5) Atrial fibrillation Status: Chronic (6) Hypertension Status: Chronic (7) Dementia Status: Acute (8) Prophylactic antibiotic Status: Acute - Assessment and Plan (Free Text) Assessment: (1) Neck Pain Status post fall Neurology consult, Dr Shah * Dr. Shah recommended carotid ultrasound, MRI, and EEG. Due to patient's metal in the right shoulder, MRI is unable to be done. Neurosurgery consult, Dr Dsouza * Dr. Dsouza stated no neurosurgical involvement necessary. Continue PT/OT * Patient will need to go to [facility]. Per case folder, daughter wants patient to go to [facility] after [facility]. Imaging: CT orbits w/o IV contrast 02/02: The orbits appear intact. Please note sagittal views demonstrate oblique lucency involving the inferior aspect of C2 which is suspected to reflect degenerative changes and possible vascular groove however nondisplaced fracture cannot be entirely excluded. Osseous demineralization limits evaluation. Correlate clinically. MRI of the cervical spine may be considered for further evaluation. CT head w/o contrast 02/02: No acute intracranial pathology identified. Incidental findings as above. CT Cervical spine w/o contrast 02/02: No fracture. Degenerative changes noted. Carotid Duplex Scan 02/03: Duplex scan does not suggest hemodynamically significant stenosis of right or left extracranial carotid arteries F/U EEG to rule out any electrographic seizures Meds: Tramadol 25 mg PO TID prn added 02/03 DISCONTINUED Flexerill 10 mg PO BID 02/07/17, added 02/03 DISCONTINUED Gabapentin 300 mg PO TID 02/07/17, added 02/03 (2) Atrial fibrillation Occasionally HR goes to 130s but recently controlled Chronic Due to patient being blind and having falls - she is not on anticoagulation at home, however we are giving her VTE prophylaxis Lovenox 40mg SC QD while here Echo 07/2016: in AFib; LA mildly dilated; Normal size RA/RV/LV; LVEF of 50-55%; Sclerotic trileaflet aortic valve; Mild concentric LVH; Indeterminate diastolic function; Metoprolol succinate 50mg PO BID Cardizem PO 30mg BID started 02/06/2017 Cardizem 5mg IV ONCE and Digoxin 0.25 IV ONCE given on 02/05/17 Aspirin 81mg PO QD (3) Change in Mental Status Agitated that we discontinued some of her meds which include morphine, flexeril and gabapentin (she does not take these medications at home). HOLD home xanax HOLD home bupropion F/U repeat Blood culture CT Head 02/07/17: Nonspecific white matter changes. Acute infarction may be CT occult within first 24 hours. If focal deficit persists, consider followup CT or MRI. CTA chest 02/07/17: No PE. Interstitial edema. Bibasilar atelectasis - superimposed pneumonia within left lower lobe not excluded. Pulmonary nodules - follow-up CT in 12 months given her smoking hx. (4) Urinary tract infection Urine Culture 02/03: NEGATIVE Urine Culture 02/02: + Klebsiella, sensitive to cipro UA 02/02: Many bacteria, 1+ blood, +Nitrate, 3+ leukocyte esterase, wbc 234, wbc 6 Meds: Rocephin 1g IV BID started 02/02 and stopped 02/04 as no study on sensitivity to rocephin Ciprofloxacin 400mg IV BID started 02/04 and recent urine culture shows sensitivity to cipro (5) Electrolyte Imbalance Hypocalcemia - relatively mild in the low normal range. Ionized calcium normal. Vitamin D 25-hydroxy level is repleted as patient has been on ergocalciferol as outpatient. Obtain PTH and reassess accordingly. F/U PTH. (6) Anxiety Xanax 1 mg PO TID (7) Depression Bupropion XL 300mg PO QD (8) Hypertension BP well controlled Isosorbide mononitrate 60mg PO QD (9) Dementia Memantine 10mg PO QD (10) Right shoulder pain hx of right shoulder replacement Ortho consult, Dr Willson (11) Prophylactic antibiotic Protonix 40mg PO QD SCDs, Lovenox 40mg SC QD Heart healthy diet Disposition: Patient will need to go to [facility]. Per case folder, daughter wants patient to go to [facility] after [facility]. <Valerio Koo - Last Filed: 02/08/17 17:44> Objective - Vital Signs/Intake and Output Vital Signs (last 24 hours): Temp Pulse Resp BP Pulse Ox 98.1 F 92 H 20 97/60 L 99 02/08/17 16:00 02/08/17 16:00 02/08/17 16:00 02/08/17 16:00 02/08/17 16:00 Intake and Output: 02/08/17 02/08/17 06:59 18:59 Intake Total 200 1100 Output Total 700 300 Balance -500 800 - Medications Medications: Current Medications Acetaminophen (Tylenol 325mg Tab) 650 mg PO Q6 PRN PRN Reason: Pain, Mild (1-3) Last Admin: 02/08/17 05:27 Dose: 650 mg Albuterol/Ipratropium (Duoneb 3 Mg/0.5 Mg (3 Ml) Ud) 3 ml INH RQ8 [facility] Last Admin: 02/08/17 07:53 Dose: 3 ml Alprazolam (Xanax) 1 mg PO TID [facility] Last Admin: 02/08/17 13:51 Dose: 1 mg Aspirin (Aspirin Chewable) 81 mg PO DAILY [facility] Last Admin: 02/08/17 10:21 Dose: 81 mg Bupropion HCl (Wellbutrin Xl) 300 mg PO DAILY [facility] Last Admin: 02/07/17 10:50 Dose: 300 mg Diltiazem HCl (Cardizem) 30 mg PO BID [facility] Last Admin: 02/08/17 17:18 Dose: Not Given Enoxaparin Sodium (Lovenox) 40 mg SC DAILY [facility] Last Admin: 02/08/17 10:20 Dose: 40 mg Ciprofloxacin (Cipro 400mg/200ml Dsw) 400 mg in 200 mls @ 133 mls/hr IVPB Q12H [facility] Last Admin: 02/08/17 10:26 Dose: 133 mls/hr Sodium Chloride (Sodium Chloride 0.9%) 1,000 mls @ 80 mls/hr IV .[id number] [facility] Last Admin: 02/08/17 13:30 Dose: 80 mls/hr Isosorbide Mononitrate (Imdur Er) 60 mg PO DAILY [facility] Last Admin: 02/08/17 10:21 Dose: 60 mg Lidocaine (Lidoderm) 1 ea TD DAILY [facility] Last Admin: 02/08/17 13:51 Dose: 1 ea Memantine (Namenda) 10 mg PO DAILY [facility] Last Admin: 02/08/17 10:21 Dose: 10 mg Metoprolol Succinate (Toprol Xl) 50 mg PO BID [facility] Last Admin: 02/08/17 17:18 Dose: Not Given Pantoprazole Sodium (Protonix Ec Tab) 40 mg PO DAILY [facility] Last Admin: 02/08/17 10:21 Dose: 40 mg Tramadol HCl (Ultram) 25 mg PO Q8H PRN PRN Reason: Pain, severe (8-10) Vitamin A (Vitamin A & D Oint Ud Foilpak) 1 ea TOP Q4 PRN PRN Reason: Dry skin Last Admin: 02/06/17 22:18 Dose: 1 ea - Labs Labs: 02/08/17 07:24 02/08/17 07:24 PT 11.3 SECONDS (9.7-12.2) 02/02/17 16:08 INR 1.0 02/02/17 16:08 APTT 31 SECONDS (21-34) 02/02/17 16:08 Attending/Attestation - Attestation I have personally seen and examined this patient.: Yes I have fully participated in the care of the patient.: Yes I have reviewed all pertinent clinical information, including history, physical exam and plan: Yes Notes (Text): Seen and examined this morning.She is alert and oriented.Her Mental status at her baseline.Wants to take her xanax Denies sob,c/o shoulder pain.Got worse after the fall Orthopedic consult appreciated continue home me planning d/c to [place],d/w daughter yesterday continue cipro for UTI follow blood culture done yesterday d/w resident I agree with the assessment and the plan 02/08/17 17:43
[2017-02-08 08:06] LABS: ALBUMIN 2.8 g/dL (3.5-5.0); ALT/SGPT 39 U/L (9-52); AST/SGOT 34 U/L (14-36); BLOOD UREA NITROGEN 11 mg/dL (7-17); CALCIUM 7.8 mg/dl (8.6-10.4); GFR AFRICAN-AMERICAN > 60; GFR NON-AFRICAN AMERICAN > 60
[2017-02-08 09:09] LABS: ANISOCYTOSIS SLIGHT; BANDS 1 % (0-2); HYPOCHROMIC SLIGHT; LYMPHOCYTE 5 % (20-40); MONOCYTE 10 % (0-10); NEUTROPHIL 84 % (50-75); PLATELET ESTIMATE NORMAL (NORMAL); POIKILOCYTOSIS SLIGHT; TOTAL CELLS COUNTED 100
[2017-02-08] MEDS: Enoxaparin 40 mg Syringe SC SCH (10:20)
[2017-02-08] MEDS: Pantoprazole 40 mg EC Tab PO SCH (10:21)
[2017-02-08] MEDS: Metoprolol Succinate 50 mg XL Tab PO SCH ×2 (10:21→17:18)
[2017-02-08] MEDS: Ciprofloxacin 400mg/200ml D5W 400 MG/200 ML BAG IVPB SCH ×2 (10:26→22:06)
--- NOTE | 2017-02-08 11:10 | CP.PCM.CON ---
History of Present Illness - History of Present Illness History of Present Illness: orthopedic consultation as per Dr. Willson 71F complains of head and neck pain s/p fall at home. She says she does not use ambulation assistive device at home. She says she has had chronic pain in her right shoulder but that it is worse after fall. She had shoulder surgery 20 years ago, 3 in total, by Dr. Henson, Gurjit, and Magan. She says she is unable to move her arm much at baseline. Denies numbness/tingling in RUE. Review of Systems - Review of Systems All systems: reviewed and no additional remarkable complaints except Past Patient History - Infectious Disease Hx of Infectious Diseases: None - Tetanus Immunizations Tetanus Immunization: Unknown - Past Medical History & Family History Past Medical History?: Yes Past Family History: Reviewed and not pertinent - Past Social History Smoking Status: Former Smoker - CARDIAC Hx Cardiac Disorders: Yes Hx Atrial Fibrillation: Yes Hx Cardia Arrhythmia: Yes Hx Hypertension: Yes - PULMONARY Hx Respiratory Disorders: Yes Hx Asthma: Yes Hx Chronic Obstructive Pulmonary Disease (COPD): Yes Hx Emphysema: Yes - NEUROLOGICAL Hx Neurological Disorder: No - HEENT Hx HEENT Problems: Yes 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) - RENAL Hx Chronic Kidney Disease: No - ENDOCRINE/METABOLIC Hx Endocrine Disorders: No - HEMATOLOGICAL/ONCOLOGICAL Hx Blood Disorders: No - INTEGUMENTARY Hx Dermatological Problems: No - MUSCULOSKELETAL/RHEUMATOLOGICAL Hx Musculoskeletal Disorders: Yes Hx Arthritis: Yes Hx Falls: Yes Hx Fractures: Yes (Right Shoulder) Hx Osteoporosis: Yes - GASTROINTESTINAL Hx Gastrointestinal Disorders: Yes Hx Gastritis: Yes - GENITOURINARY/GYNECOLOGICAL Hx Genitourinary Disorders: No - PSYCHIATRIC Hx Psychophysiologic Disorder: Yes Hx Anxiety: Yes Hx Depression: Yes Hx Substance Use: No - SURGICAL HISTORY Hx Surgeries: Yes Hx Appendectomy: Yes Hx Cholecystectomy: Yes - ANESTHESIA Hx Anesthesia: Yes Hx Anesthesia Reactions: No Hx Malignant Hyperthermia: No Has any member of the family had a problem w/ anesthesia?: No Meds Allergies/Adverse Reactions: Allergies Allergy/AdvReac Type Severity Reaction Status Date / Time Sulfa (Sulfonamide Allergy ANAPHYLAXIS Verified 02/02/17 14:46 Antibiotics) sulfasalazine Allergy ITCHING Verified 02/02/17 14:46 - Medications Medications: Current Medications Acetaminophen (Tylenol 325mg Tab) 650 mg PO Q6 PRN PRN Reason: Pain, Mild (1-3) Last Admin: 02/08/17 05:27 Dose: 650 mg Albuterol/Ipratropium (Duoneb 3 Mg/0.5 Mg (3 Ml) Ud) 3 ml INH RQ8 [facility] Last Admin: 02/08/17 07:53 Dose: 3 ml Alprazolam (Xanax) 1 mg PO TID [facility] Last Admin: 02/07/17 17:04 Dose: Not Given Aspirin (Aspirin Chewable) 81 mg PO DAILY [facility] Last Admin: 02/08/17 10:21 Dose: 81 mg Bupropion HCl (Wellbutrin Xl) 300 mg PO DAILY [facility] Last Admin: 02/07/17 10:50 Dose: 300 mg Diltiazem HCl (Cardizem) 30 mg PO BID [facility] Last Admin: 02/08/17 10:21 Dose: 30 mg Enoxaparin Sodium (Lovenox) 40 mg SC DAILY [facility] Last Admin: 02/08/17 10:20 Dose: 40 mg Ciprofloxacin (Cipro 400mg/200ml Dsw) 400 mg in 200 mls @ 133 mls/hr IVPB Q12H [facility] Last Admin: 02/08/17 10:26 Dose: 133 mls/hr Sodium Chloride (Sodium Chloride 0.9%) 1,000 mls @ 80 mls/hr IV .[id number] [facility] Last Admin: 02/07/17 17:03 Dose: Not Given Isosorbide Mononitrate (Imdur Er) 60 mg PO DAILY [facility] Last Admin: 02/08/17 10:21 Dose: 60 mg Memantine (Namenda) 10 mg PO DAILY [facility] Last Admin: 02/08/17 10:21 Dose: 10 mg Metoprolol Succinate (Toprol Xl) 50 mg PO BID [facility] Last Admin: 02/08/17 10:21 Dose: 50 mg Pantoprazole Sodium (Protonix Ec Tab) 40 mg PO DAILY [facility] Last Admin: 02/08/17 10:21 Dose: 40 mg Tramadol HCl (Ultram) 25 mg PO Q8H PRN PRN Reason: Pain, severe (8-10) Vitamin A (Vitamin A & D Oint Ud Foilpak) 1 ea TOP Q4 PRN PRN Reason: Dry skin Last Admin: 02/06/17 22:18 Dose: 1 ea Physical Exam - Constitutional Appears: Well, No Acute Distress - Head Exam Additional comments: lac to mid anterior forehead - Respiratory Exam Respiratory Exam: NORMAL BREATHING PATTERN - Expanded Upper Extremities Exam Right Shoulder exam: tenderness (limited active and passive ROM right shoulder, baseline per pt), normal inspection Elbow exam: full ROM, normal inspection Forearm Wrist exam: full ROM, normal inspection Neuro motor exam: finger 2-5 abduction intact, thumb abduction, thumb IP flexion intact, thumb opposition intact, wrist extension intact Neurosensory exam: median nerve intact, radial nerve intact, ulnar nerve intact Vascular exam: radial pulse - Neurological Exam Neurological exam: Alert, Oriented x3 - Psychiatric Exam Psychiatric exam: Normal Affect, Normal Mood - Skin Skin Exam: Dry, Intact, Normal Color, Warm Results - Vital Signs Recent Vital Signs: Last Vital Signs Temp 97.7 F 02/08/17 08:21 Pulse 100 H 02/08/17 08:21 Resp 20 02/08/17 08:21 BP 119/76 02/08/17 08:21 Pulse Ox 100 02/08/17 08:21 - Labs Result Diagrams: 02/08/17 07:24 02/08/17 07:24 Labs: Laboratory Results - last 24 hr 02/07/17 02/07/17 02/07/17 11:56 11:56 11:56 WBC 17.1 H RBC 3.64 L Hgb 11.5 Hct 34.0 MCV 93.6 MCH 31.5 H MCHC 33.7 RDW 14.1 Plt Count 138 MPV 10.2 Neut % (Auto) 84.5 H Lymph % (Auto) 3.3 L Knox % (Auto) 12.0 H Eos % (Auto) 0.1 Baso % (Auto) 0.1 Neut # 14.5 H Lymph # 0.6 L Knox # 2.1 H Eos # 0.0 Baso # 0.0 Neutrophils % (Manual) 81 H Band Neutrophils % Lymphocytes % (Manual) 4 L Monocytes % (Manual) 15 H Platelet Estimate Normal Large Platelets Present Polychromasia Slight Hypochromasia (manual) Slight Poikilocytosis (manual Slight Anisocytosis (manual) Slight D-Dimer, Quantitative Puncture Site pCO2 pO2 HCO3 ABG pH ABG Total CO2 ABG O2 Saturation ABG Base Excess ABG Hemoglobin ABG Carboxyhemoglobin POC ABG HHb (Measured) ABG Methemoglobin Sam Test Hgb O2 Saturation Liter Flow Sodium 134 Potassium 3.6 Chloride 102 Carbon Dioxide 27 Anion Gap 9 L BUN 12 Creatinine 0.5 L Est GFR ( Amer) > 60 Est GFR (Non-Af Amer) > 60 Random Glucose 82 Uric Acid 2.5 Calcium 7.5 L Phosphorus 2.6 Magnesium 1.9 Total Bilirubin 1.0 AST 30 ALT 30 Alkaline Phosphatase 149 H D Total Protein 5.7 L Albumin 2.8 L D Globulin 2.9 Albumin/Globulin Ratio 1.0 25-OH Vitamin D Total Urine Color Urine Clarity Urine pH Ur Specific [place] Urine Protein Urine Glucose (UA) Urine Ketones Urine Blood Urine Nitrate Urine Bilirubin Urine Urobilinogen Ur Leukocyte Esterase Urine WBC (Auto) Urine RBC (Auto) Ur Squamous Epith Cells Urine Bacteria Urine Osmolality Ur Random Creatinine Ur Random Sodium Ur Random Potassium Ur Random Calcium 02/07/17 02/07/17 02/07/17 11:56 12:07 12:07 WBC RBC Hgb Hct MCV MCH MCHC RDW Plt Count MPV Neut % (Auto) Lymph % (Auto) Knox % (Auto) Eos % (Auto) Baso % (Auto) Neut # Lymph # Knox # Eos # Baso # Neutrophils % (Manual) Band Neutrophils % Lymphocytes % (Manual) Monocytes % (Manual) Platelet Estimate Large Platelets Polychromasia Hypochromasia (manual) Poikilocytosis (manual Anisocytosis (manual) D-Dimer, Quantitative Puncture Site pCO2 pO2 HCO3 ABG pH ABG Total CO2 ABG O2 Saturation ABG Base Excess ABG Hemoglobin ABG Carboxyhemoglobin POC ABG HHb (Measured) ABG Methemoglobin Sam Test Hgb O2 Saturation Liter Flow Sodium Potassium Chloride Carbon Dioxide Anion Gap BUN Creatinine Est GFR ( Amer) Est GFR (Non-Af Amer) Random Glucose Uric Acid Calcium Phosphorus Magnesium Total Bilirubin AST ALT Alkaline Phosphatase Total Protein Albumin Globulin Albumin/Globulin Ratio 25-OH Vitamin D Total 37.3 Urine Color Yellow Urine Clarity Hazy Urine pH 5.0 Ur Specific [place] 1.018 Urine Protein Negative Urine Glucose (UA) Normal Urine Ketones Trace Urine Blood 1+ H Urine Nitrate Negative Urine Bilirubin Negative Urine Urobilinogen Normal Ur Leukocyte Esterase 3+ H Urine WBC (Auto) 86 H Urine RBC (Auto) 5 H Ur Squamous Epith Cells 5 Urine Bacteria Rare Urine Osmolality Ur Random Creatinine 76.0 Ur Random Sodium Ur Random Potassium Ur Random Calcium 5.9 02/07/17 02/07/17 02/07/17 12:07 17:32 19:38 WBC RBC Hgb Hct MCV MCH MCHC RDW Plt Count MPV Neut % (Auto) Lymph % (Auto) Knox % (Auto) Eos % (Auto) Baso % (Auto) Neut # Lymph # Knox # Eos # Baso # Neutrophils % (Manual) Band Neutrophils % Lymphocytes % (Manual) Monocytes % (Manual) Platelet Estimate Large Platelets Polychromasia Hypochromasia (manual) Poikilocytosis (manual Anisocytosis (manual) D-Dimer, Quantitative 826 H Puncture Site Lba pCO2 33 L pO2 114 H HCO3 26.5 ABG pH 7.49 H ABG Total CO2 26.1 ABG O2 Saturation 99.2 H ABG Base Excess 2.0 ABG Hemoglobin 10.5 L ABG Carboxyhemoglobin 2.5 H POC ABG HHb (Measured) 0.8 ABG Methemoglobin 1.1 Sam Test Na Hgb O2 Saturation 95.7 Liter Flow 2.0 Sodium Potassium Chloride Carbon Dioxide Anion Gap BUN Creatinine Est GFR ( Amer) Est GFR (Non-Af Amer) Random Glucose Uric Acid Calcium Phosphorus Magnesium Total Bilirubin AST ALT Alkaline Phosphatase Total Protein Albumin Globulin Albumin/Globulin Ratio 25-OH Vitamin D Total Urine Color Urine Clarity Urine pH Ur Specific [place] Urine Protein Urine Glucose (UA) Urine Ketones Urine Blood Urine Nitrate Urine Bilirubin Urine Urobilinogen Ur Leukocyte Esterase Urine WBC (Auto) Urine RBC (Auto) Ur Squamous Epith Cells Urine Bacteria Urine Osmolality 652 Ur Random Creatinine Ur Random Sodium 67 Ur Random Potassium 53.6 Ur Random Calcium 02/08/17 02/08/17 07:24 07:24 WBC 15.6 H RBC 3.52 L Hgb 11.1 Hct 32.8 L MCV 93.2 MCH 31.4 H MCHC 33.7 RDW 13.9 Plt Count 152 MPV 10.0 Neut % (Auto) 83.2 H Lymph % (Auto) 3.8 L Knox % (Auto) 12.3 H Eos % (Auto) 0.4 Baso % (Auto) 0.3 Neut # 13.0 H Lymph # 0.6 L [place] # 1.9 H Eos # 0.1 Baso # 0.1 Neutrophils % (Manual) 84 H Band Neutrophils % 1 Lymphocytes % (Manual) 5 L Monocytes % (Manual) 10 Platelet Estimate Normal Large Platelets Polychromasia Hypochromasia (manual) Slight Poikilocytosis (manual Slight Anisocytosis (manual) Slight D-Dimer, Quantitative Puncture Site pCO2 pO2 HCO3 ABG pH ABG Total CO2 ABG O2 Saturation ABG Base Excess ABG Hemoglobin ABG Carboxyhemoglobin POC ABG HHb (Measured) ABG Methemoglobin Sam Test Hgb O2 Saturation Liter Flow Sodium 137 Potassium 3.3 L Chloride 101 Carbon Dioxide 27 Anion Gap 11 BUN 11 Creatinine 0.5 L Est GFR ( Amer) > 60 Est GFR (Non-Af Amer) > 60 Random Glucose 111 H Uric Acid Calcium 7.8 L Phosphorus Magnesium Total Bilirubin 1.3 AST 34 ALT 39 Alkaline Phosphatase 170 H Total Protein 5.7 L Albumin 2.8 L Globulin 2.9 Albumin/Globulin Ratio 1.0 25-OH Vitamin D Total Urine Color Urine Clarity Urine pH Ur Specific [place] Urine Protein Urine Glucose (UA) Urine Ketones Urine Blood Urine Nitrate Urine Bilirubin Urine Urobilinogen Ur Leukocyte Esterase Urine WBC (Auto) Urine RBC (Auto) Ur Squamous Epith Cells Urine Bacteria Urine Osmolality Ur Random Creatinine Ur Random Sodium Ur Random Potassium Ur Random Calcium Assessment & Plan (1) Shoulder pain, right Assessment and Plan: 20 years s/p right shoulder hemiarthroplasty xrays ordered, not yet completed patient with significant chronic changes heterotopic bone and erosion noted on CXR, as well as prior shoulder films from jan 2016 patient with recent fall, r/o acute fracture to right shoulder f/u shoulder films sling for comfort prn lidoderm patch f/u imaging d/w Dr. Willson, agrees with above Status: Acute Review of Systems - Review of Systems Constitutional: Positive for: UNREMARKABLE Cardiovascular: Positive for: UNREMARKABLE Respiratory: Positive for: UNREMARKABLE Gastrointestinal: Positive for: UNREMARKABLE Musculoskeletal: Positive for: As Par HPI Integumentary: Positive for: UNREMARKABLE Neurological: Positive for: As Per HPI Hematologic: Positive for: UNREMARKABLE - Medications/Allergies Allergies/Adverse Reactions: Allergies Allergy/AdvReac Type Severity Reaction Status Date / Time Sulfa (Sulfonamide Allergy ANAPHYLAXIS Verified 02/02/17 14:46 Antibiotics) sulfasalazine Allergy ITCHING Verified 02/02/17 14:46 Medications: Current Medications Acetaminophen (Tylenol 325mg Tab) 650 mg PO Q6 PRN PRN Reason: Pain, Mild (1-3) Last Admin: 02/08/17 05:27 Dose: 650 mg Albuterol/Ipratropium (Duoneb 3 Mg/0.5 Mg (3 Ml) Ud) 3 ml INH RQ8 [facility] Last Admin: 02/08/17 07:53 Dose: 3 ml Alprazolam (Xanax) 1 mg PO TID [facility] Last Admin: 02/07/17 17:04 Dose: Not Given Aspirin (Aspirin Chewable) 81 mg PO DAILY [facility] Last Admin: 02/08/17 10:21 Dose: 81 mg Bupropion HCl (Wellbutrin Xl) 300 mg PO DAILY [facility] Last Admin: 02/07/17 10:50 Dose: 300 mg Diltiazem HCl (Cardizem) 30 mg PO BID [facility] Last Admin: 02/08/17 10:21 Dose: 30 mg Enoxaparin Sodium (Lovenox) 40 mg SC DAILY [facility] Last Admin: 02/08/17 10:20 Dose: 40 mg Ciprofloxacin (Cipro 400mg/200ml Dsw) 400 mg in 200 mls @ 133 mls/hr IVPB Q12H [facility] Last Admin: 02/08/17 10:26 Dose: 133 mls/hr Sodium Chloride (Sodium Chloride 0.9%) 1,000 mls @ 80 mls/hr IV .[id number] [facility] Last Admin: 02/07/17 17:03 Dose: Not Given Isosorbide Mononitrate (Imdur Er) 60 mg PO DAILY [facility] Last Admin: 02/08/17 10:21 Dose: 60 mg Memantine (Namenda) 10 mg PO DAILY [facility] Last Admin: 02/08/17 10:21 Dose: 10 mg Metoprolol Succinate (Toprol Xl) 50 mg PO BID [facility] Last Admin: 02/08/17 10:21 Dose: 50 mg Pantoprazole Sodium (Protonix Ec Tab) 40 mg PO DAILY [facility] Last Admin: 02/08/17 10:21 Dose: 40 mg Tramadol HCl (Ultram) 25 mg PO Q8H PRN PRN Reason: Pain, severe (8-10) Vitamin A (Vitamin A & D Oint Ud Foilpak) 1 ea TOP Q4 PRN PRN Reason: Dry skin Last Admin: 02/06/17 22:18 Dose: 1 ea Radiology Interpretation - Radiology Interpretation #2 Interpretation: Patient Name / ID : JUWAN NAVARRO / [id number] Exam Date : 02/05/2016 09:04:58 ( Approved ) Study Comment : Sex / Age : F / 70Y Creator : Cole Elias MD Dictator : Cole Elias MD Cafe Associate : Boiler Or Engine Operator : Cole Elias MD Approver2 : Report Date : 02/09/2016 10:14:48 My Comment : PROCEDURE: Radiographs of the Right Shoulder HISTORY: S/P ENDOPROSTHETIC REPLACEMENT COMPARISON: 08/03/2014 FINDINGS: BONES: Normal. No fracture. JOINTS: There is no change from the prior exam. As noted previously it is unclear whether the humeral head prosthesis articulates with the glenoid. There is a large amount of heterotopic bone superior to the prosthesis. CT may be indicated for further evaluation SOFT TISSUES: Normal. OTHER FINDINGS: None. IMPRESSION: Right shoulder prosthesis with a large amount of heterotopic bone. See comment
[2017-02-08] MEDS: Sodium Chloride 0.9% 1,000 ML IV SCH (13:30)
[2017-02-08] MEDS: Lidocaine 5% Patch TD SCH (13:51)
--- NOTE | 2017-02-08 13:55 | EEG ---
DATE: 02/07/2017 This is a 16-channel electroencephalogram of a lethargic adult. During the study, photic stimulation was performed, hyperventilation was not performed. The resting electroencephalogram consists of 20 to 30 microvolts, 6 to 7 Hz theta activity seen at parietal and occipital leads. Anteriorly, fast activity superimposed with 2 to 3 Hz delta activities seen at frontal and the central leads. Intermittent movement as well as muscle artifact contaminated the background rhythm. Later, this activity is somewhat increased from high theta activities seen. There are high-amplitude sleep spindle activities consistent with N2 sleep. There is significant left frontoparietal high-amplitude slow activities noted without any paroxysmal polyspike and wave activities noted. The photic stimulation did not evoke driving response noted at 2 to 20 Hz. IMPRESSION: This is an abnormal electroencephalogram because of persistent slowing throughout the record, which is superimposed with focal slowing at left frontoparietal region. This activity is not associating with any paroxysmal activities or spike and wave activities noted. Please correlate the finding with the neurological and radiological studies. Irvin Shah MD
--- NOTE | 2017-02-08 15:22 | RAD ---
PROCEDURE: Radiographs of the Right Shoulder HISTORY: shoulder pain COMPARISON: 02/05/2016 FINDINGS: BONES: No acute fracture. JOINTS: Status post right glenohumeral arthroplasty. As on prior examination, with the glenoid is not clearly evident. There is extensive heterotopic bone about the glenohumeral articulation. SOFT TISSUES: Normal. OTHER FINDINGS: None. IMPRESSION: No change from 02/05/2016. No acute fracture. Glenohumeral arthroplasty. Extensive heterotopic bone.
--- NOTE | 2017-02-08 21:15 | CP.PCM.PN ---
Subjective - Date & Time of Evaluation Date of Evaluation: 02/08/17 Time of Evaluation: 13:00 - Subjective Subjective: Patient reports shortness of breath improved; tolerating diet, no nausea/ vomiting; Objective - Vital Signs/Intake and Output Vital Signs (last 24 hours): Temp Pulse Resp BP Pulse Ox 98.1 F 92 H 20 97/60 L 99 02/08/17 16:00 02/08/17 16:00 02/08/17 16:00 02/08/17 16:00 02/08/17 16:00 Intake and Output: 02/08/17 02/09/17 18:59 06:59 Intake Total 1100 Output Total 300 Balance 800 - Medications Medications: Current Medications Acetaminophen (Tylenol 325mg Tab) 650 mg PO Q6 PRN PRN Reason: Pain, Mild (1-3) Last Admin: 02/08/17 05:27 Dose: 650 mg Albuterol/Ipratropium (Duoneb 3 Mg/0.5 Mg (3 Ml) Ud) 3 ml INH RQ8 [facility] Last Admin: 02/08/17 20:21 Dose: 3 ml Alprazolam (Xanax) 1 mg PO TID [facility] Last Admin: 02/08/17 18:15 Dose: Not Given Aspirin (Aspirin Chewable) 81 mg PO DAILY [facility] Last Admin: 02/08/17 10:21 Dose: 81 mg Bupropion HCl (Wellbutrin Xl) 300 mg PO DAILY [facility] Last Admin: 02/07/17 10:50 Dose: 300 mg Diltiazem HCl (Cardizem) 30 mg PO BID [facility] Last Admin: 02/08/17 17:18 Dose: Not Given Enoxaparin Sodium (Lovenox) 40 mg SC DAILY [facility] Last Admin: 02/08/17 10:20 Dose: 40 mg Ciprofloxacin (Cipro 400mg/200ml Dsw) 400 mg in 200 mls @ 133 mls/hr IVPB Q12H [facility] Last Admin: 02/08/17 10:26 Dose: 133 mls/hr Sodium Chloride (Sodium Chloride 0.9%) 1,000 mls @ 80 mls/hr IV .[id number] [facility] Last Admin: 02/08/17 13:30 Dose: 80 mls/hr Isosorbide Mononitrate (Imdur Er) 60 mg PO DAILY [facility] Last Admin: 02/08/17 10:21 Dose: 60 mg Lidocaine (Lidoderm) 1 ea TD DAILY [facility] Last Admin: 02/08/17 13:51 Dose: 1 ea Memantine (Namenda) 10 mg PO DAILY [facility] Last Admin: 02/08/17 10:21 Dose: 10 mg Metoprolol Succinate (Toprol Xl) 50 mg PO BID [facility] Last Admin: 02/08/17 17:18 Dose: Not Given Pantoprazole Sodium (Protonix Ec Tab) 40 mg PO DAILY [facility] Last Admin: 02/08/17 10:21 Dose: 40 mg Tramadol HCl (Ultram) 25 mg PO Q8H PRN PRN Reason: Pain, severe (8-10) Vitamin A (Vitamin A & D Oint Ud Foilpak) 1 ea TOP Q4 PRN PRN Reason: Dry skin Last Admin: 02/06/17 22:18 Dose: 1 ea - Labs Labs: 02/08/17 07:24 02/08/17 07:24 PT 11.3 SECONDS (9.7-12.2) 02/02/17 16:08 INR 1.0 02/02/17 16:08 APTT 31 SECONDS (21-34) 02/02/17 16:08 - Constitutional Appears: Non-toxic, No Acute Distress - Eye Exam Eye Exam: absent: Scleral icterus - ENT Exam ENT Exam: Mucous Membranes Moist - Respiratory Exam Additional comments: rales on R but improved; - Cardiovascular Exam Cardiovascular Exam: RRR, +S1, +S2 - GI/Abdominal Exam GI & Abdominal Exam: Soft. absent: Distended, Tenderness - Extremities Exam Additional comments: no leg edema; - Neurological Exam Neurological Exam: Alert, Awake - Psychiatric Exam Psychiatric exam: absent: Agitated - Skin Skin Exam: Warm. absent: Cyanosis Assessment and Plan (1) Electrolyte imbalance Assessment & Plan: Mild hypokalemia, improved; evidence of renal K wasting but cause unclear; appears relatively euvolemic on exam; will continue to supplement PO KCl as needed; Corrected Ca at lower end of normal; PTH in lower range of normal; 25-OH vitamin D level replete; no need for any further intervention; Status: Acute (2) Hypertension Assessment & Plan: BP controlled on current regimen, continue same; Status: Chronic
[2017-02-08] MEDS ORDERED: Potassium Chloride 20 mEq/15 ml LIQ UD PO ONE (21:17)
--- NOTE | 2017-02-08 23:40 | CP.PCM.PN ---
Subjective - Date & Time of Evaluation Date of Evaluation: 02/08/17 Time of Evaluation: 14:50 - Subjective Subjective: Patient seen and evaluated No cardiac events noted Objective - Vital Signs/Intake and Output Vital Signs (last 24 hours): Temp Pulse Resp BP Pulse Ox 98.1 F 92 H 20 97/60 L 99 02/08/17 16:00 02/08/17 16:00 02/08/17 16:00 02/08/17 16:00 02/08/17 16:00 Intake and Output: 02/08/17 02/09/17 18:59 06:59 Intake Total 1100 400 Output Total 300 Balance 800 400 - Medications Medications: Current Medications Acetaminophen (Tylenol 325mg Tab) 650 mg PO Q6 PRN PRN Reason: Pain, Mild (1-3) Last Admin: 02/08/17 05:27 Dose: 650 mg Albuterol/Ipratropium (Duoneb 3 Mg/0.5 Mg (3 Ml) Ud) 3 ml INH RQ8 [facility] Last Admin: 02/08/17 20:21 Dose: 3 ml Alprazolam (Xanax) 1 mg PO TID [facility] Last Admin: 02/08/17 21:45 Dose: 1 mg Aspirin (Aspirin Chewable) 81 mg PO DAILY [facility] Last Admin: 02/08/17 10:21 Dose: 81 mg Bupropion HCl (Wellbutrin Xl) 300 mg PO DAILY [facility] Last Admin: 02/07/17 10:50 Dose: 300 mg Diltiazem HCl (Cardizem) 30 mg PO BID [facility] Last Admin: 02/08/17 17:18 Dose: Not Given Enoxaparin Sodium (Lovenox) 40 mg SC DAILY [facility] Last Admin: 02/08/17 10:20 Dose: 40 mg Ciprofloxacin (Cipro 400mg/200ml Dsw) 400 mg in 200 mls @ 133 mls/hr IVPB Q12H [facility] Last Admin: 02/08/17 22:06 Dose: 133 mls/hr Sodium Chloride (Sodium Chloride 0.9%) 1,000 mls @ 80 mls/hr IV .[id number] [facility] Last Admin: 02/08/17 13:30 Dose: 80 mls/hr Isosorbide Mononitrate (Imdur Er) 60 mg PO DAILY [facility] Last Admin: 01/03/18 10:21 Dose: 60 mg Lidocaine (Lidoderm) 1 ea TD DAILY [facility] Last Admin: 02/08/17 13:51 Dose: 1 ea Memantine (Namenda) 10 mg PO DAILY [facility] Last Admin: 02/08/17 10:21 Dose: 10 mg Metoprolol Succinate (Toprol Xl) 50 mg PO BID [facility] Last Admin: 02/08/17 17:18 Dose: Not Given Pantoprazole Sodium (Protonix Ec Tab) 40 mg PO DAILY [facility] Last Admin: 02/08/17 10:21 Dose: 40 mg Tramadol HCl (Ultram) 25 mg PO Q8H PRN PRN Reason: Pain, severe (8-10) Vitamin A (Vitamin A & D Oint Ud Foilpak) 1 ea TOP Q4 PRN PRN Reason: Dry skin Last Admin: 02/06/17 22:18 Dose: 1 ea - Labs Labs: 02/08/17 07:24 02/08/17 07:24 PT 11.3 SECONDS (9.7-12.2) 02/02/17 16:08 INR 1.0 02/02/17 16:08 APTT 31 SECONDS (21-34) 02/02/17 16:08
[2017-02-09] MEDS: Albuterol-Ipratrop 3 mg / 0.5 (3 ml) UD INH SCH ×4 (00:02→23:55)
--- NOTE | 2017-02-09 07:21 | CP.PCM.PN ---
<Austin Goodman R - Last Filed: 02/09/17 13:02> Subjective - Date & Time of Evaluation Date of Evaluation: 02/09/17 Time of Evaluation: 07:08 - Subjective Subjective: PGY-[address] Koo. No acute events overnight. Patient was not agitated today as she was yesterday. She denied all symptoms but was still having difficulty moving her right arm. She denied chest pain, abdominal pain, dysuria, fever, nausea, vomiting. Objective - Vital Signs/Intake and Output Vital Signs (last 24 hours): Temp Pulse Resp BP Pulse Ox 98.9 F 115 H 22 106/68 97 02/08/17 23:35 02/09/17 04:32 02/09/17 00:05 02/08/17 23:35 02/08/17 23:35 Intake and Output: 02/09/17 02/09/17 06:59 18:59 Intake Total 1040 Balance 1040 - Medications Medications: Current Medications Acetaminophen (Tylenol 325mg Tab) 650 mg PO Q6 PRN PRN Reason: Pain, Mild (1-3) Last Admin: 02/08/17 05:27 Dose: 650 mg Albuterol/Ipratropium (Duoneb 3 Mg/0.5 Mg (3 Ml) Ud) 3 ml INH RQ8 [facility] Last Admin: 02/09/17 00:02 Dose: 3 ml Alprazolam (Xanax) 1 mg PO TID [facility] Last Admin: 02/08/17 21:45 Dose: 1 mg Aspirin (Aspirin Chewable) 81 mg PO DAILY [facility] Last Admin: 02/08/17 10:21 Dose: 81 mg Bupropion HCl (Wellbutrin Xl) 300 mg PO DAILY [facility] Last Admin: 02/07/17 10:50 Dose: 300 mg Diltiazem HCl (Cardizem) 30 mg PO BID [facility] Last Admin: 02/08/17 17:18 Dose: Not Given Enoxaparin Sodium (Lovenox) 40 mg SC DAILY [facility] Last Admin: 02/08/17 10:20 Dose: 40 mg Ciprofloxacin (Cipro 400mg/200ml Dsw) 400 mg in 200 mls @ 133 mls/hr IVPB Q12H [facility] Last Admin: 02/08/17 22:06 Dose: 133 mls/hr Sodium Chloride (Sodium Chloride 0.9%) 1,000 mls @ 80 mls/hr IV .[id number] [facility] Last Admin: 02/08/17 13:30 Dose: 80 mls/hr Isosorbide Mononitrate (Imdur Er) 60 mg PO DAILY [facility] Last Admin: 02/08/17 10:21 Dose: 60 mg Lidocaine (Lidoderm) 1 ea TD DAILY [facility] Last Admin: 02/08/17 13:51 Dose: 1 ea Memantine (Namenda) 10 mg PO DAILY [facility] Last Admin: 02/08/17 10:21 Dose: 10 mg Metoprolol Succinate (Toprol Xl) 50 mg PO BID [facility] Last Admin: 02/08/17 17:18 Dose: Not Given Pantoprazole Sodium (Protonix Ec Tab) 40 mg PO DAILY [facility] Last Admin: 02/08/17 10:21 Dose: 40 mg Tramadol HCl (Ultram) 25 mg PO Q8H PRN PRN Reason: Pain, severe (8-10) Vitamin A (Vitamin A & D Oint Ud Foilpak) 1 ea TOP Q4 PRN PRN Reason: Dry skin Last Admin: 02/06/17 22:18 Dose: 1 ea - Labs Labs: 02/08/17 07:24 02/08/17 07:24 PT 11.3 SECONDS (9.7-12.2) 02/02/17 16:08 INR 1.0 02/02/17 16:08 APTT 31 SECONDS (21-34) 02/02/17 16:08 - Additional Findings Additional findings: - Constitutional Appears: Not in acute distress, Chronically Ill - Head Exam Additional comments: laceration on forehead closed with Dermabond - Eye Exam Pupil Exam: Fixed, Miosis Additional comments: legally blind - ENT Exam ENT Exam: Mucous Membranes Moist - Neck Exam Additional comments: Soft collar in place. Limited ROM secondary to pain - Respiratory Exam Respiratory Exam: Decreased Breath Sounds. absent: Rales, Rhonchi, Wheezes - Cardiovascular Exam Cardiovascular Exam: Irregular Rhythm, +S1, +S2 - GI/Abdominal Exam GI & Abdominal Exam: Soft, Normal Bowel Sounds. absent: Tenderness - Extremities Exam Extremities Exam: absent: Pedal Edema, Tenderness - Neurological Exam Neurological Exam: Alert, Awake, Oriented x3. absent: Motor Sensory Deficit - Psychiatric Exam Psychiatric exam: Anxious - Skin Skin Exam: Dry, Warm Assessment and Plan (1) Status post fall Status: Acute (2) Urinary tract infection Status: Acute (3) Anxiety Status: Acute (4) Depression Status: Acute (5) Atrial fibrillation Status: Chronic (6) Hypertension Status: Chronic (7) Dementia Status: Acute (8) Prophylactic antibiotic Status: Acute - Assessment and Plan (Free Text) Assessment: (1) Neck Pain Status post fall Neurology consult, Dr Shah * Dr. Shah recommended carotid ultrasound, MRI, and EEG. Due to patient's metal in the right shoulder, MRI is unable to be done. Neurosurgery consult, Dr Dsouza * Dr. Dsouza stated no neurosurgical involvement necessary. Continue PT/OT * Patient will need to go to [facility]. Per lead case manager, daughter wants patient to go to [facility] after [facility]. Imaging: CT orbits w/o IV contrast 02/02: The orbits appear intact. Please note sagittal views demonstrate oblique lucency involving the inferior aspect of C2 which is suspected to reflect degenerative changes and possible vascular groove however nondisplaced fracture cannot be entirely excluded. Osseous demineralization limits evaluation. Correlate clinically. MRI of the cervical spine may be considered for further evaluation. CT head w/o contrast 02/02: No acute intracranial pathology identified. Incidental findings as above. CT Cervical spine w/o contrast 02/02: No fracture. Degenerative changes noted. Carotid Duplex Scan 02/03: Duplex scan does not suggest hemodynamically significant stenosis of right or left extracranial carotid arteries EEG 02/07/17: This is an abnormal electroencephalogram bc of persistent slowing throughout the record, which is superimposed with focal slowing at left frontoparietal region. This activity is not associating with any paroxysmal activities or spike and wave activities noted. Meds: Tramadol 25 mg PO TID prn added 02/03 DISCONTINUED Flexerill 10 mg PO BID 02/07/17, added 02/03 DISCONTINUED Gabapentin 300 mg PO TID 02/07/17, added 02/03 (2) Atrial fibrillation Occasionally HR goes to 130s but recently controlled Chronic Due to patient being blind and having falls - she is not on anticoagulation at home, however we are giving her VTE prophylaxis Lovenox 40mg SC QD while here Echo 07/2016: in AFib; LA mildly dilated; Normal size RA/RV/LV; LVEF of 50-55%; Sclerotic trileaflet aortic valve; Mild concentric LVH; Indeterminate diastolic function; Metoprolol succinate 50mg PO BID Cardizem PO 30mg BID started 02/06/2017 Cardizem 5mg IV ONCE and Digoxin 0.25 IV ONCE given on 02/05/17 Aspirin 81mg PO QD (3) Change in Mental Status Agitated that we discontinued some of her meds which include morphine, flexeril and gabapentin (she does not take these medications at home). Con't home xanax (initially held after AMS but re-continued once AMS improved/ due to agitation) Con't home bupropion (initially held after AMS but re-continued once AMS improved/due to agitation) Repeat Blood culture 02/07/17: NEGATIVE up to date CT Head 02/07/17: Nonspecific white matter changes. Acute infarction may be CT occult within first 24 hours. If focal deficit persists, consider followup CT or MRI. CTA chest 02/07/17: No PE. Interstitial edema. Bibasilar atelectasis - superimposed pneumonia within left lower lobe not excluded. Pulmonary nodules - follow-up CT in 12 months given her smoking hx. (4) Urinary tract infection Urine Culture 02/03: NEGATIVE Urine Culture 02/02: + Klebsiella, sensitive to cipro UA 02/02: Many bacteria, 1+ blood, +Nitrate, 3+ leukocyte esterase, wbc 234, wbc 6 Meds: Rocephin 1g IV BID started 02/02 and stopped 02/04 as no study on sensitivity to rocephin Ciprofloxacin 400mg IV BID started 02/04 and recent urine culture shows sensitivity to cipro (5) Electrolyte Imbalance Hypocalcemia - relatively mild in the low normal range. Ionized calcium normal. Vitamin D 25-hydroxy level is repleted as patient has been on ergocalciferol as outpatient. Obtain PTH and reassess accordingly. PTH w/Ion and Total Calcium: NORMAL (6) Anxiety Xanax 1 mg PO TID (7) Depression Bupropion XL 300mg PO QD (8) Hypertension BP well controlled Isosorbide mononitrate 60mg PO QD (9) Dementia Memantine 10mg PO QD (10) Right shoulder pain hx of right shoulder replacement Ortho consult, Dr Willson * Xrays reviewed. No acute fracture appreciated. Recommend PT/OT. No orthopedic intervention indicated at this time. Patient to follow up with Dr. Willson as outpatient. (11) Prophylactic antibiotic Protonix 40mg PO QD SCDs, Lovenox 40mg SC QD Heart healthy diet Disposition: Patient will need to go to [facility] (currently waiting placement). Per lead case manager, daughter wants patient to go to LTAC after [facility]. <Valerio Koo - Last Filed: 02/09/17 13:32> Objective - Vital Signs/Intake and Output Vital Signs (last 24 hours): Temp Pulse Resp BP Pulse Ox 97.5 F L 120 H 18 138/85 100 02/09/17 07:05 02/09/17 10:21 02/09/17 07:05 02/09/17 10:21 02/09/17 07:05 Intake and Output: 02/09/17 02/09/17 06:59 18:59 Intake Total 1040 240 Balance 1040 240 - Medications Medications: Current Medications Acetaminophen (Tylenol 325mg Tab) 650 mg PO Q6 PRN PRN Reason: Pain, Mild (1-3) Last Admin: 02/08/17 05:27 Dose: 650 mg Albuterol/Ipratropium (Duoneb 3 Mg/0.5 Mg (3 Ml) Ud) 3 ml INH RQ8 [facility] Last Admin: 02/09/17 07:18 Dose: Not Given Alprazolam (Xanax) 1 mg PO TID [facility] Last Admin: 02/09/17 10:19 Dose: 1 mg Aspirin (Aspirin Chewable) 81 mg PO DAILY [facility] Last Admin: 02/09/17 10:18 Dose: 81 mg Bupropion HCl (Wellbutrin Xl) 300 mg PO DAILY [facility] Last Admin: 02/09/17 10:19 Dose: 300 mg Diltiazem HCl (Cardizem) 30 mg PO BID [facility] Last Admin: 02/09/17 10:17 Dose: 30 mg Enoxaparin Sodium (Lovenox) 40 mg SC DAILY [facility] Last Admin: 02/09/17 10:18 Dose: 40 mg Ciprofloxacin (Cipro 400mg/200ml Dsw) 400 mg in 200 mls @ 133 mls/hr IVPB Q12H [facility] Last Admin: 02/09/17 12:26 Dose: 133 mls/hr Sodium Chloride (Sodium Chloride 0.9%) 1,000 mls @ 80 mls/hr IV .[id number] [facility] Last Admin: 02/08/17 13:30 Dose: 80 mls/hr Potassium Chloride (Potassium Chloride 20 Meq/100 Ml) 20 meq in 100 mls @ 50 mls/hr IVPB ONCE ONE Stop: 02/09/17 15:29 Isosorbide Mononitrate (Imdur Er) 60 mg PO DAILY [facility] Last Admin: 02/09/17 10:16 Dose: 60 mg Lidocaine (Lidoderm) 1 ea TD DAILY [facility] Last Admin: 02/09/17 10:15 Dose: 1 ea Memantine (Namenda) 10 mg PO DAILY [facility] Last Admin: 02/09/17 10:15 Dose: 10 mg Metoprolol Succinate (Toprol Xl) 50 mg PO BID [facility] Last Admin: 02/09/17 10:16 Dose: 50 mg Pantoprazole Sodium (Protonix Ec Tab) 40 mg PO DAILY [facility] Last Admin: 02/09/17 10:17 Dose: 40 mg Tramadol HCl (Ultram) 25 mg PO Q8H PRN PRN Reason: Pain, severe (8-10) Vitamin A (Vitamin A & D Oint Ud Foilpak) 1 ea TOP Q4 PRN PRN Reason: Dry skin Last Admin: 02/06/17 22:18 Dose: 1 ea - Labs Labs: 02/09/17 12:08 02/09/17 12:08 PT 11.3 SECONDS (9.7-12.2) 02/02/17 16:08 INR 1.0 02/02/17 16:08 APTT 31 SECONDS (21-34) 02/02/17 16:08 Attending/Attestation - Attestation I have personally seen and examined this patient.: Yes I have fully participated in the care of the patient.: Yes I have reviewed all pertinent clinical information, including history, physical exam and plan: Yes Notes (Text): patient is alert and oriented,no complain. Her right shoulder pain is better. continue her cipro for UTI Contune current meds including her xanax d/w SW about d/c plan to rehab
[2017-02-09] MEDS: Lidocaine 5% Patch TD SCH (10:15)
[2017-02-09] MEDS: Metoprolol Succinate 50 mg XL Tab PO SCH ×2 (10:16→17:02)
[2017-02-09] MEDS: Pantoprazole 40 mg EC Tab PO SCH (10:17)
[2017-02-09] MEDS: Enoxaparin 40 mg Syringe SC SCH (10:18)
[2017-02-09] MEDS: buPROPion 150 mg/24 Hours XL Tab PO SCH (10:19)
[2017-02-09 12:26] LABS: BASO # 0.1 K/uL (0.0-0.2); BASO % 0.3 % (0.0-2.0); EOS # 0.2 K/uL (0.0-0.7); HEMOGLOBIN 11.6 g/dL (11.0-16.0); LYMPH % 5.9 % (20.0-40.0); MEAN CELL VOLUME 93.2 fL (81.0-99.0); MEAN CORPUSCULAR HEMOGLOBIN 30.3 pg (27.0-31.0); MEAN CORPUSCULAR HGB CONC 32.5 g/dL (33.0-37.0); MEAN PLATELET VOLUME 10.7 fL (7.2-11.7); MONO # 2.1 K/uL (0.0-0.8); MONO % 12.9 % (0.0-10.0); NEUT # 13.1 K/uL (1.8-7.0); NEUT % 79.9 % (50.0-75.0); NRBC % 0.1 % (0.0-2.0); PLATELET COUNT 188 K/uL (130-400); RBC 3.82 Mil/uL (3.80-5.20); RED CELL DISTRIBUTION WIDTH 14.4 % (11.5-14.5); WHITE BLOOD COUNT 16.3 K/uL (4.8-10.8)
[2017-02-09] MEDS: Ciprofloxacin 400mg/200ml D5W 400 MG/200 ML BAG IVPB SCH ×2 (12:26→22:35)
[2017-02-09 12:48] LABS: BASOPHIL 1 % (0-2); LYMPHOCYTE 9 % (20-40); MONOCYTE 11 % (0-10); NEUTROPHIL 79 % (50-75); PLATELET ESTIMATE NORMAL (NORMAL); TOTAL CELLS COUNTED 100
[2017-02-09 12:49] LABS: ANISOCYTOSIS SLIGHT; HYPOCHROMIC SLIGHT; OVALOCYTES SLIGHT; POIKILOCYTOSIS SLIGHT
[2017-02-09 12:50] LABS: ALBUMIN 3.1 g/dL (3.5-5.0); ALT/SGPT 52 U/L (9-52); AST/SGOT 46 U/L (14-36); BLOOD UREA NITROGEN 9 mg/dL (7-17); CALCIUM 8.1 mg/dl (8.6-10.4); GFR AFRICAN-AMERICAN > 60; GFR NON-AFRICAN AMERICAN > 60
[2017-02-09] MEDS ORDERED: Potassium Chloride 20 mEq ER Tab PO ONE (13:01)
--- NOTE | 2017-02-09 15:30 | CP.PCM.PN ---
Subjective - Date & Time of Evaluation Date of Evaluation: 02/09/17 Time of Evaluation: 14:45 - Subjective Subjective: Patient reportedly still somewhat confused; is tolerating diet well (being fed) ; difficult to obtain history from patient; Objective - Vital Signs/Intake and Output Vital Signs (last 24 hours): Temp Pulse Resp BP Pulse Ox 97.5 F L 120 H 18 138/85 100 02/09/17 07:05 02/09/17 10:21 02/09/17 07:05 02/09/17 10:21 02/09/17 07:05 Intake and Output: 02/09/17 02/09/17 06:59 18:59 Intake Total 1040 240 Balance 1040 240 - Medications Medications: Current Medications Acetaminophen (Tylenol 325mg Tab) 650 mg PO Q6 PRN PRN Reason: Pain, Mild (1-3) Last Admin: 02/08/17 05:27 Dose: 650 mg Albuterol/Ipratropium (Duoneb 3 Mg/0.5 Mg (3 Ml) Ud) 3 ml INH RQ8 [facility] Last Admin: 02/09/17 07:18 Dose: Not Given Alprazolam (Xanax) 1 mg PO TID [facility] Last Admin: 02/09/17 14:36 Dose: 1 mg Aspirin (Aspirin Chewable) 81 mg PO DAILY [facility] Last Admin: 02/09/17 10:18 Dose: 81 mg Bupropion HCl (Wellbutrin Xl) 300 mg PO DAILY [facility] Last Admin: 02/09/17 10:19 Dose: 300 mg Diltiazem HCl (Cardizem) 30 mg PO BID [facility] Last Admin: 02/09/17 10:17 Dose: 30 mg Enoxaparin Sodium (Lovenox) 40 mg SC DAILY [facility] Last Admin: 02/09/17 10:18 Dose: 40 mg Ciprofloxacin (Cipro 400mg/200ml Dsw) 400 mg in 200 mls @ 133 mls/hr IVPB Q12H [facility] Last Admin: 02/09/17 12:26 Dose: 133 mls/hr Sodium Chloride (Sodium Chloride 0.9%) 1,000 mls @ 80 mls/hr IV .[id number] [facility] Last Admin: 02/08/17 13:30 Dose: 80 mls/hr Isosorbide Mononitrate (Imdur Er) 60 mg PO DAILY [facility] Last Admin: 02/09/17 10:16 Dose: 60 mg Lidocaine (Lidoderm) 1 ea TD DAILY [facility] Last Admin: 02/09/17 10:15 Dose: 1 ea Memantine (Namenda) 10 mg PO DAILY [facility] Last Admin: 02/09/17 10:15 Dose: 10 mg Metoprolol Succinate (Toprol Xl) 50 mg PO BID [facility] Last Admin: 02/09/17 10:16 Dose: 50 mg Pantoprazole Sodium (Protonix Ec Tab) 40 mg PO DAILY [facility] Last Admin: 02/09/17 10:17 Dose: 40 mg Tramadol HCl (Ultram) 25 mg PO Q8H PRN PRN Reason: Pain, severe (8-10) Vitamin A (Vitamin A & D Oint Ud Foilpak) 1 ea TOP Q4 PRN PRN Reason: Dry skin Last Admin: 02/06/17 22:18 Dose: 1 ea - Labs Labs: 02/09/17 12:08 02/09/17 12:08 PT 11.3 SECONDS (9.7-12.2) 02/02/17 16:08 INR 1.0 02/02/17 16:08 APTT 31 SECONDS (21-34) 02/02/17 16:08 - Constitutional Appears: No Acute Distress - Eye Exam Eye Exam: absent: Scleral icterus - ENT Exam ENT Exam: Mucous Membranes Moist - Respiratory Exam Respiratory Exam: Clear to Ausculation Bilateral Additional comments: tachypneic - Cardiovascular Exam Cardiovascular Exam: RRR, +S1, +S2 - GI/Abdominal Exam GI & Abdominal Exam: Soft. absent: Distended, Tenderness - Extremities Exam Additional comments: no leg edema; - Neurological Exam Neurological Exam: Alert, Awake - Psychiatric Exam Psychiatric exam: absent: Agitated - Skin Skin Exam: Warm. absent: Cyanosis Assessment and Plan (1) Electrolyte imbalance Assessment & Plan: Mild hypokalemia still persists; continue with K repletion prn; Status: Acute (2) Hypertension Assessment & Plan: BP controlled on imdur, diltiazem and toprol XL, continue same; Status: Chronic - Assessment and Plan (Free Text) Assessment: Thank you for this referral, we will continue to follow up her electrolyte status;
--- NOTE | 2017-02-09 22:11 | CP.PCM.PN ---
Subjective - Date & Time of Evaluation Date of Evaluation: 02/09/17 Time of Evaluation: 09:45 Objective - Vital Signs/Intake and Output Vital Signs (last 24 hours): Temp Pulse Resp BP Pulse Ox 98.4 F 92 H 20 134/82 94 L 02/09/17 15:00 02/09/17 18:29 02/09/17 15:00 02/09/17 18:29 02/09/17 15:00 Intake and Output: 02/09/17 02/10/17 18:59 06:59 Intake Total 240 Balance 240 - Medications Medications: Current Medications Acetaminophen (Tylenol 325mg Tab) 650 mg PO Q6 PRN PRN Reason: Pain, Mild (1-3) Last Admin: 02/08/17 05:27 Dose: 650 mg Albuterol/Ipratropium (Duoneb 3 Mg/0.5 Mg (3 Ml) Ud) 3 ml INH RQ8 [facility] Last Admin: 02/09/17 15:51 Dose: 3 ml Alprazolam (Xanax) 1 mg PO TID [facility] Last Admin: 02/09/17 19:00 Dose: Not Given Aspirin (Aspirin Chewable) 81 mg PO DAILY [facility] Last Admin: 02/09/17 10:18 Dose: 81 mg Bupropion HCl (Wellbutrin Xl) 300 mg PO DAILY [facility] Last Admin: 02/09/17 10:19 Dose: 300 mg Diltiazem HCl (Cardizem) 30 mg PO BID [facility] Last Admin: 02/09/17 17:02 Dose: 30 mg Enoxaparin Sodium (Lovenox) 40 mg SC DAILY [facility] Last Admin: 02/09/17 10:18 Dose: 40 mg Ciprofloxacin (Cipro 400mg/200ml Dsw) 400 mg in 200 mls @ 133 mls/hr IVPB Q12H [facility] Last Admin: 02/09/17 12:26 Dose: 133 mls/hr Isosorbide Mononitrate (Imdur Er) 60 mg PO DAILY [facility] Last Admin: 02/09/17 10:16 Dose: 60 mg Lidocaine (Lidoderm) 1 ea TD DAILY [facility] Last Admin: 02/09/17 10:15 Dose: 1 ea Memantine (Namenda) 10 mg PO DAILY [facility] Last Admin: 02/09/17 10:15 Dose: 10 mg Metoprolol Succinate (Toprol Xl) 50 mg PO BID [facility] Last Admin: 02/09/17 17:02 Dose: 50 mg Pantoprazole Sodium (Protonix Ec Tab) 40 mg PO DAILY [facility] Last Admin: 02/09/17 10:17 Dose: 40 mg Tramadol HCl (Ultram) 25 mg PO Q8H PRN PRN Reason: Pain, severe (8-10) Vitamin A (Vitamin A & D Oint Ud Foilpak) 1 ea TOP Q4 PRN PRN Reason: Dry skin Last Admin: 02/06/17 22:18 Dose: 1 ea - Labs Labs: 02/09/17 12:08 02/09/17 12:08 PT 11.3 SECONDS (9.7-12.2) 02/02/17 16:08 INR 1.0 02/02/17 16:08 APTT 31 SECONDS (21-34) 02/02/17 16:08
[2017-02-10 02:22] VITALS: RESP 18
--- NOTE | 2017-02-10 07:04 | CP.PCM.PN ---
Subjective - Date & Time of Evaluation Date of Evaluation: 02/10/17 Time of Evaluation: 07:03 - Subjective Subjective: PGY-[address] Koo. No acute events overnight. Patient was not agitated today as she was yesterday. She denied all symptoms but was still having difficulty moving her right arm. She denied chest pain, abdominal pain, dysuria, fever, nausea, vomiting. Objective - Vital Signs/Intake and Output Vital Signs (last 24 hours): Temp Pulse Resp BP Pulse Ox 97.5 F L 87 18 113/70 95 02/09/17 23:40 02/10/17 04:06 02/09/17 23:40 02/09/17 23:40 02/09/17 23:40 Intake and Output: 02/10/17 02/10/17 06:59 18:59 Intake Total 240 Balance 240 - Medications Medications: Current Medications Acetaminophen (Tylenol 325mg Tab) 650 mg PO Q6 PRN PRN Reason: Pain, Mild (1-3) Last Admin: 02/08/17 05:27 Dose: 650 mg Albuterol/Ipratropium (Duoneb 3 Mg/0.5 Mg (3 Ml) Ud) 3 ml INH RQ8 [facility] Last Admin: 02/09/17 23:55 Dose: Not Given Alprazolam (Xanax) 1 mg PO TID [facility] Last Admin: 02/09/17 19:00 Dose: Not Given Aspirin (Aspirin Chewable) 81 mg PO DAILY [facility] Last Admin: 02/09/17 10:18 Dose: 81 mg Bupropion HCl (Wellbutrin Xl) 300 mg PO DAILY [facility] Last Admin: 02/09/17 10:19 Dose: 300 mg Diltiazem HCl (Cardizem) 30 mg PO BID [facility] Last Admin: 02/09/17 17:02 Dose: 30 mg Enoxaparin Sodium (Lovenox) 40 mg SC DAILY [facility] Last Admin: 02/09/17 10:18 Dose: 40 mg Ciprofloxacin (Cipro 400mg/200ml Dsw) 400 mg in 200 mls @ 133 mls/hr IVPB Q12H [facility] Last Admin: 02/09/17 22:35 Dose: 133 mls/hr Isosorbide Mononitrate (Imdur Er) 60 mg PO DAILY [facility] Last Admin: 01/04/18 10:16 Dose: 60 mg Lidocaine (Lidoderm) 1 ea TD DAILY [facility] Last Admin: 02/09/17 10:15 Dose: 1 ea Memantine (Namenda) 10 mg PO DAILY [facility] Last Admin: 02/09/17 10:15 Dose: 10 mg Metoprolol Succinate (Toprol Xl) 50 mg PO BID [facility] Last Admin: 02/09/17 17:02 Dose: 50 mg Pantoprazole Sodium (Protonix Ec Tab) 40 mg PO DAILY [facility] Last Admin: 02/09/17 10:17 Dose: 40 mg Tramadol HCl (Ultram) 25 mg PO Q8H PRN PRN Reason: Pain, severe (8-10) Vitamin A (Vitamin A & D Oint Ud Foilpak) 1 ea TOP Q4 PRN PRN Reason: Dry skin Last Admin: 02/06/17 22:18 Dose: 1 ea - Labs Labs: 02/09/17 12:08 02/09/17 12:08 PT 11.3 SECONDS (9.7-12.2) 02/02/17 16:08 INR 1.0 02/02/17 16:08 APTT 31 SECONDS (21-34) 02/02/17 16:08 - Additional Findings Additional findings: - Constitutional Appears: Not in acute distress, Chronically Ill - Head Exam Additional comments: laceration on forehead closed with Dermabond - Eye Exam Pupil Exam: Fixed, Miosis Additional comments: legally blind - ENT Exam ENT Exam: Mucous Membranes Moist - Neck Exam Additional comments: Soft collar in place. Limited ROM secondary to pain - Respiratory Exam Respiratory Exam: Decreased Breath Sounds. absent: Rales, Rhonchi, Wheezes - Cardiovascular Exam Cardiovascular Exam: Irregular Rhythm, +S1, +S2 - GI/Abdominal Exam GI & Abdominal Exam: Soft, Normal Bowel Sounds. absent: Tenderness - Extremities Exam Extremities Exam: absent: Pedal Edema, Tenderness - Neurological Exam Neurological Exam: Alert, Awake, Oriented x3. absent: Motor Sensory Deficit - Psychiatric Exam Psychiatric exam: Anxious - Skin Skin Exam: Dry, Warm Assessment and Plan (1) Status post fall Status: Acute (2) Urinary tract infection Status: Acute (3) Anxiety Status: Acute (4) Depression Status: Acute (5) Atrial fibrillation Status: Chronic (6) Hypertension Status: Chronic (7) Dementia Status: Acute (8) Prophylactic antibiotic Status: Acute - Assessment and Plan (Free Text) Assessment: (1) Neck Pain Status post fall Neurology consult, Dr Shah * Dr. Shah recommended carotid ultrasound, MRI, and EEG. Due to patient's metal in the right shoulder, MRI is unable to be done. Neurosurgery consult, Dr Dsouza * Dr. Dsouza stated no neurosurgical involvement necessary. Continue PT/OT * Patient will need to go to [facility]. Per patient case manager, daughter wants patient to go to [facility] after [facility]. Imaging: CT orbits w/o IV contrast 02/02: The orbits appear intact. Please note sagittal views demonstrate oblique lucency involving the inferior aspect of C2 which is suspected to reflect degenerative changes and possible vascular groove however nondisplaced fracture cannot be entirely excluded. Osseous demineralization limits evaluation. Correlate clinically. MRI of the cervical spine may be considered for further evaluation. CT head w/o contrast 02/02: No acute intracranial pathology identified. Incidental findings as above. CT Cervical spine w/o contrast 02/02: No fracture. Degenerative changes noted. Carotid Duplex Scan 02/03: Duplex scan does not suggest hemodynamically significant stenosis of right or left extracranial carotid arteries EEG 02/07/17: This is an abnormal electroencephalogram bc of persistent slowing throughout the record, which is superimposed with focal slowing at left frontoparietal region. This activity is not associating with any paroxysmal activities or spike and wave activities noted. Meds: Tramadol 25 mg PO TID prn added 02/03 DISCONTINUED Flexerill 10 mg PO BID 02/07/17, added 02/03 DISCONTINUED Gabapentin 300 mg PO TID 02/07/17, added 02/03 (2) Atrial fibrillation Occasionally HR goes to 130s but recently controlled Chronic Due to patient being blind and having falls - she is not on anticoagulation at home, however we are giving her VTE prophylaxis Lovenox 40mg SC QD while here Echo 07/2016: in AFib; LA mildly dilated; Normal size RA/RV/LV; LVEF of 50-55%; Sclerotic trileaflet aortic valve; Mild concentric LVH; Indeterminate diastolic function; Metoprolol succinate 50mg PO BID Cardizem PO 30mg BID started 02/06/2017 Cardizem 5mg IV ONCE and Digoxin 0.25 IV ONCE given on 02/05/17 Aspirin 81mg PO QD (3) Change in Mental Status Agitated that we discontinued some of her meds which include morphine, flexeril and gabapentin (she does not take these medications at home). Con't home xanax (initially held after AMS but re-continued once AMS improved/ due to agitation) Con't home bupropion (initially held after AMS but re-continued once AMS improved/due to agitation) Repeat Blood culture 02/07/17: NEGATIVE up to date CT Head 02/07/17: Nonspecific white matter changes. Acute infarction may be CT occult within first 24 hours. If focal deficit persists, consider followup CT or MRI. CTA chest 02/07/17: No PE. Interstitial edema. Bibasilar atelectasis - superimposed pneumonia within left lower lobe not excluded. Pulmonary nodules - follow-up CT in 12 months given her smoking hx. (4) Urinary tract infection Urine Culture 02/03: NEGATIVE Urine Culture 02/02: + Klebsiella, sensitive to cipro UA 02/02: Many bacteria, 1+ blood, +Nitrate, 3+ leukocyte esterase, wbc 234, wbc 6 Meds: Rocephin 1g IV BID started 02/02 and stopped 02/04 as no study on sensitivity to rocephin Ciprofloxacin 400mg IV BID started 02/04 and recent urine culture shows sensitivity to cipro (5) Electrolyte Imbalance Hypocalcemia - relatively mild in the low normal range. Ionized calcium normal. Vitamin D 25-hydroxy level is repleted as patient has been on ergocalciferol as outpatient. Obtain PTH and reassess accordingly. PTH w/Ion and Total Calcium: NORMAL (6) Anxiety Xanax 1 mg PO TID (7) Depression Bupropion XL 300mg PO QD (8) Hypertension BP well controlled Isosorbide mononitrate 60mg PO QD (9) Dementia Memantine 10mg PO QD (10) Right shoulder pain hx of right shoulder replacement Ortho consult, Dr Willson * Xrays reviewed. No acute fracture appreciated. Recommend PT/OT. No orthopedic intervention indicated at this time. Patient to follow up with Dr. Willson as outpatient. (11) Prophylactic antibiotic Protonix 40mg PO QD SCDs, Lovenox 40mg SC QD Heart healthy diet Disposition: Patient will need to go to [facility] (currently waiting placement). Per patient case manager, daughter wants patient to go to LT[facility] after [facility].
--- NOTE | 2017-02-10 07:09 | CARD ---
APPROVED REPORT EKG Measurement Heart [id number] <Conclusion> Atrial fibrillation with rapid ventricular response ST elevation, consider anterior injury or acute infarct ACUTE TX / STEMI Abnormal ECG
[2017-02-10 07:37] LABS: BASO # 0.1 K/uL (0.0-0.2); BASO % 0.5 % (0.0-2.0); EOS # 0.2 K/uL (0.0-0.7); EOS % 1.5 % (0.0-4.0); HEMOGLOBIN 11.6 g/dL (11.0-16.0); LYMPH # 1.1 K/uL (1.0-4.3); LYMPH % 10.4 % (20.0-40.0); MEAN CELL VOLUME 92.9 fL (81.0-99.0); MEAN CORPUSCULAR HEMOGLOBIN 31.6 pg (27.0-31.0); MEAN PLATELET VOLUME 9.8 fL (7.2-11.7); MONO # 1.6 K/uL (0.0-0.8); MONO % 15.3 % (0.0-10.0); NEUT # 7.3 K/uL (1.8-7.0); NEUT % 72.3 % (50.0-75.0); RBC 3.68 Mil/uL (3.80-5.20); RED CELL DISTRIBUTION WIDTH 14.2 % (11.5-14.5); WHITE BLOOD COUNT 10.2 K/uL (4.8-10.8)
[2017-02-10 07:50] VITALS: TEMP 97.7; O2SAT 97
[2017-02-10] MEDS: Albuterol-Ipratrop 3 mg / 0.5 (3 ml) UD INH SCH ×2 (08:35→16:23)
[2017-02-10 08:38] LABS: ALT/SGPT 50 U/L (9-52); AST/SGOT 40 U/L (14-36); BLOOD UREA NITROGEN 10 mg/dL (7-17); CALCIUM 7.9 mg/dl (8.6-10.4); GFR AFRICAN-AMERICAN > 60; GFR NON-AFRICAN AMERICAN > 60
[2017-02-10] MEDS: Metoprolol Succinate 50 mg XL Tab PO SCH (10:57)
[2017-02-10] MEDS: Lidocaine 5% Patch TD SCH (10:58)
[2017-02-10] MEDS: Pantoprazole 40 mg EC Tab PO SCH (10:58)
[2017-02-10] MEDS: Enoxaparin 40 mg Syringe SC SCH (10:58)
[2017-02-10] MEDS: buPROPion 150 mg/24 Hours XL Tab PO SCH (10:58)
[2017-02-10 11:01] VITALS: BP 131/88; PULSE 103
[2017-02-10] MEDS: Ciprofloxacin 400mg/200ml D5W 400 MG/200 ML BAG IVPB SCH (11:29)
--- NOTE | 2017-02-10 14:06 | CP.PCM.DIS ---
<MaxineAustin R - Last Filed: 02/10/17 14:07> Provider - Provider Date of Admission: 02/02/17 17:37 Attending physician: Valerio Koo MD Primary care physician: PMD: Dr Darden Consults: Cardiology: Dr Rene Neurology: Dr Shah Neurosurgeon: Dr Dsouza Burlap Worker: Dr Arenas Pulmonary: Dr Enciso Orthopedic Surgeon: Dr Willson Time Spent in preparation of Discharge (in minutes): 55 Diagnosis - Discharge Diagnosis (1) Status post fall Status: Resolved Priority: Medium (2) Urinary tract infection Status: Resolved Priority: Medium (3) Anxiety Status: Chronic Priority: Medium (4) Depression Status: Chronic Priority: Medium (5) Atrial fibrillation Status: Chronic Priority: High (6) Hypertension Status: Chronic Priority: Medium (7) Dementia Status: Chronic Priority: Medium (8) Prophylactic antibiotic Status: Acute Priority: Low Hospital Course - Lab Results Lab Results: Micro Results 02/07/17 20:00 Blood Blood Culture - Preliminary NO GROWTH AFTER 48 HOURS 02/07/17 19:30 Blood Blood Culture - Preliminary NO GROWTH AFTER 48 HOURS 02/03/17 15:07 Urine Urine Culture - Final No Growth (<1,000 CFU/ML) 02/02/17 19:00 Urine,Clean Catch Urine Culture - Final Klebsiella Pneumoniae Ssp Pneu Most Recent Lab Values WBC 10.2 K/uL (4.8-10.8) 02/10/17 07:25 RBC 3.68 Mil/uL (3.80-5.20) L 02/10/17 07:25 Hgb 11.6 g/dL (11.0-16.0) 02/10/17 07:25 Hct 34.2 % (34.0-47.0) 02/10/17 07:25 MCV 92.9 fL (81.0-99.0) 02/10/17 07:25 MCH 31.6 pg (27.0-31.0) H 02/10/17 07:25 MCHC 34.0 g/dL (33.0-37.0) 02/10/17 07:25 RDW 14.2 % (11.5-14.5) 02/10/17 07:25 Plt Count 192 K/uL (130-400) 02/10/17 07:25 MPV 9.8 fL (7.2-11.7) 02/10/17 07:25 Neut % (Auto) 72.3 % (50.0-75.0) 02/10/17 07:25 Lymph % (Auto) 10.4 % (20.0-40.0) L 02/10/17 07:25 Meade % (Auto) 15.3 % (0.0-10.0) H 02/10/17 07:25 Eos % (Auto) 1.5 % (0.0-4.0) 02/10/17 07:25 Baso % (Auto) 0.5 % (0.0-2.0) 02/10/17 07:25 Neut # 7.3 K/uL (1.8-7.0) H 02/10/17 07:25 Lymph # 1.1 K/uL (1.0-4.3) 02/10/17 07:25 Meade # 1.6 K/uL (0.0-0.8) H 02/10/17 07:25 Eos # 0.2 K/uL (0.0-0.7) 02/10/17 07:25 Baso # 0.1 K/uL (0.0-0.2) 02/10/17 07:25 Neutrophils % (Manual) 79 % (50-75) H 02/09/17 12:08 Band Neutrophils % 1 % (0-2) 02/08/17 07:24 Lymphocytes % (Manual) 9 % (20-40) L 02/09/17 12:08 Monocytes % (Manual) 11 % (0-10) H 02/09/17 12:08 Basophils % (Manual) 1 % (0-2) 02/09/17 12:08 Toxic Granulation Present 02/05/17 07:41 Platelet Estimate Normal (NORMAL) 02/09/17 12:08 Large Platelets Present 02/07/17 11:56 Giant Platelets Present 02/06/17 11:40 Polychromasia Slight 02/07/17 11:56 Hypochromasia (manual) Slight 02/09/17 12:08 Poikilocytosis (manual Slight 02/09/17 12:08 Anisocytosis (manual) Slight 02/09/17 12:08 Ovalocytes Slight 02/09/17 12:08 PT 11.3 SECONDS (9.7-12.2) 02/02/17 16:08 INR 1.0 02/02/17 16:08 APTT 31 SECONDS (21-34) 02/02/17 16:08 D-Dimer, Quantitative 826 ng/mlDDU (0-243) H 02/07/17 19:38 Puncture Site Lba 02/07/17 17:32 pCO2 33 mm/Hg (35-45) L 02/07/17 17:32 pO2 114 mm/Hg (80-100) H 02/07/17 17:32 HCO3 26.5 mmol/L (21-28) 02/07/17 17:32 ABG pH 7.49 (7.35-7.45) H 02/07/17 17:32 ABG Total CO2 26.1 mmol/L (22-28) 02/07/17 17:32 ABG O2 Saturation 99.2 % (95-98) H 02/07/17 17:32 ABG Base Excess 2.0 mmol/L (-2.0-3.0) 02/07/17 17:32 ABG Hemoglobin 10.5 g/dL (11.7-17.4) L 02/07/17 17:32 ABG Carboxyhemoglobin 2.5 % (0.5-1.5) H 02/07/17 17:32 POC ABG HHb (Measured) 0.8 % (0.0-5.0) 02/07/17 17:32 ABG Methemoglobin 1.1 % (0.0-3.0) 02/07/17 17:32 Sam Test Na 02/07/17 17:32 Hgb O2 Saturation 95.7 % (95.0-98.0) 02/07/17 17:32 Liter Flow 2.0 02/07/17 17:32 Sodium 138 mmol/L (132-148) 02/10/17 07:25 Potassium 3.8 mmol/L (3.6-5.2) 02/10/17 07:25 Chloride 102 mmol/L (98-107) 02/10/17 07:25 Carbon Dioxide 26 mmol/L (22-30) 02/10/17 07:25 Anion Gap 13 (10-20) 02/10/17 07:25 BUN 10 mg/dL (7-17) 02/10/17 07:25 Creatinine 0.5 mg/dL (0.7-1.2) L 02/10/17 07:25 Est GFR ( Amer) > 60 02/10/17 07:25 Est GFR (Non-Af Amer) > 60 02/10/17 07:25 POC Glucose (mg/dL) 106 mg/dL (65-110) 02/04/17 16:18 Random Glucose 95 mg/dL (65-105) 02/10/17 07:25 Uric Acid 2.5 mg/dL (2.2-7.5) 02/07/17 11:56 Calcium 7.9 mg/dl (8.6-10.4) L 02/10/17 07:25 Ionized Calcium 5.0 mg/dL (4.80-5.60) 02/07/17 11:56 Phosphorus 2.6 mg/dL (2.5-4.5) 02/07/17 11:56 Magnesium 1.9 mg/dL (1.6-2.3) 02/07/17 11:56 Total Bilirubin 0.8 mg/dL (0.2-1.3) 02/10/17 07:25 AST 40 U/L (14-36) H 02/10/17 07:25 ALT 50 U/L (9-52) 02/10/17 07:25 Alkaline Phosphatase 197 U/L (38-126) H 02/10/17 07:25 Total Creatine Kinase 470 U/L (30-135) H 02/05/17 09:22 CK-MB (Mass) 2.63 ng/mL (0.0-3.38) 02/05/17 09:22 Troponin I < 0.0120 ng/mL (0.00-0.120) 02/05/17 09:22 Total Protein 6.1 g/dL (6.3-8.3) L 02/10/17 07:25 Albumin 3.0 g/dL (3.5-5.0) L 02/10/17 07:25 Globulin 3.1 gm/dL (2.2-3.9) 02/10/17 07:25 Albumin/Globulin Ratio 1.0 (1.0-2.1) 02/10/17 07:25 25-OH Vitamin D Total 37.3 NG/ML (30.0-100.0) 02/07/17 11:56 TSH 3rd Generation 0.95 mIU/L (0.46-4.68) 02/05/17 09:22 Prolactin 6.6 ng/mL (3.0-18.9) 02/03/17 08:19 Calcium (PTH Intact) 7.9 mg/dL (8.6-10.4) L 02/07/17 11:56 PTH w/Ion &Tot Calcium 31 pg/mL (14-64) 02/07/17 11:56 Urine Color Yellow (YELLOW) 02/07/17 12:07 Urine Clarity Hazy (Clear) 02/07/17 12:07 Urine pH 5.0 (5.0-8.0) 02/07/17 12:07 Ur Specific [place] 1.018 (1.003-1.030) 02/07/17 12:07 Urine Protein Negative mg/dL (NEGATIVE) 02/07/17 12:07 Urine Glucose (UA) Normal mg/dL (Normal) 02/07/17 12:07 Urine Ketones Trace mg/dL (NEGATIVE) 02/07/17 12:07 Urine Blood 1+ (NEGATIVE) H 02/07/17 12:07 Urine Nitrate Negative (NEGATIVE) 02/07/17 12:07 Urine Bilirubin Negative (NEGATIVE) 02/07/17 12:07 Urine Urobilinogen Normal mg/dL (0.2-1.0) 02/07/17 12:07 Ur Leukocyte Esterase 3+ Wero/uL (Negative) H 02/07/17 12:07 Urine WBC (Auto) 86 /hpf (0-5) H 02/07/17 12:07 Urine RBC (Auto) 5 /hpf (0-3) H 02/07/17 12:07 Ur Squamous Epith Cells 5 /hpf (0-5) 02/07/17 12:07 Ur Transition Epith Cell < 1 /hpf (0-3) 02/02/17 16:46 Urine Bacteria Rare (<OCC) 02/07/17 12:07 Urine Osmolality 652 mosm/kg (300-1000) 02/07/17 12:07 Ur Random Creatinine 76.0 mg/dL 02/07/17 12:07 Ur Random Sodium 67 mmol/L 02/07/17 12:07 Ur Random Potassium 53.6 mmol/L 02/07/17 12:07 Ur Random Calcium 5.9 mg/dL 02/07/17 12:07 - Hospital Course Hospital Course: CC: "I've been getting lightheaded" HPI: Mrs Joseph is a 71 year old legally blind female with a PMHx of AFib, HTN, COPD, Anxiety/Depression, who was brought in by her homemaker for a fall that occurred outside her home. 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 She complains of neck pain located posteriorly, she says rotating her head left or right causes pain, however she better tolerates flexion and extension. She denies losing consciousness, fever, cough, or neck stiffness. She states the past few days she's been feeling lightheaded and has had a decreased appetite. She also endorsed urinary frequency in the past few days. She denies chest pain, abdominal pain, dysuria, shortness of breath. PMD: Dr Darden Veterinary Attendant: Dr Gil Molina PMHx: HTN, AFib, COPD, Anxiety, Depression, Degenerative Bone Disease PSHx: cholecystectomy, R shoulder with prosthetic device, eye surgery, hemorrhoidectomy Allergies: Sulfa drugs - rash Home medications: long medication list - see MAR FamHx: Father - pancreatic CA, Mother - heart problems, Brother - DM SocialHx: lives alone with homemaker 4x per week for 4 hours per day; former smoker - quit in the 80s; denies illicit drug use or alcohol HOSPITAL COURSE: Mrs Joseph presented status-post fall. There was concern, due to initial imaging, that a C2 fracture might be possible. Follow-up imaging however did not indicate this. Neurology and Neurosurgery were consulted and agreed that there was a lack of evidence for a C2 fracture. This patient has a history of AFib. However due to risk of fall, she is not on anticoagulation. Veterinary Attendant recommended she be started on Aspirin which she is on now. There was also an instance of altered mental status. Some of the medications were discontinued ( morphine, flexeril, gabapentin) which improved her mental status to AAOx3 and her baseline. She was treated for a UTI. She was given abx, a repeat UTI was negative. She was hypocalcemic and nephrology was consulted - however this was a relatively mild hypocalcemia in the low normal range - the hypocalcemia improved to normal by discharge. Her right shoulder pain was concerning - thus orthopedic was consulted and xrays were reviewed - no orthopedic intervention was indicated, she will need to be seen by an orthopedic doctor outpatient if the pain persists. I've included my last progress note for further details: (1) Neck Pain Status post fall Neurology consult, Dr Shah * Dr. Shah recommended carotid ultrasound, MRI, and EEG. Due to patient's metal in the right shoulder, MRI is unable to be done. Neurosurgery consult, Dr Dsouza * Dr. Dsouza stated no neurosurgical involvement necessary. Continue PT/OT * Patient will need to go to [facility]. Per casework manager, daughter wants patient to go to LTAC after [facility]. Imaging: CT orbits w/o IV contrast 02/02: The orbits appear intact. Please note sagittal views demonstrate oblique lucency involving the inferior aspect of C2 which is suspected to reflect degenerative changes and possible vascular groove however nondisplaced fracture cannot be entirely excluded. Osseous demineralization limits evaluation. Correlate clinically. MRI of the cervical spine may be considered for further evaluation. CT head w/o contrast 02/02: No acute intracranial pathology identified. Incidental findings as above. CT Cervical spine w/o contrast 02/02: No fracture. Degenerative changes noted. Carotid Duplex Scan 02/03: Duplex scan does not suggest hemodynamically significant stenosis of right or left extracranial carotid arteries EEG 02/07/17: This is an abnormal electroencephalogram bc of persistent slowing throughout the record, which is superimposed with focal slowing at left frontoparietal region. This activity is not associating with any paroxysmal activities or spike and wave activities noted. Meds: Tramadol 25 mg PO TID prn added 02/03 DISCONTINUED Flexerill 10 mg PO BID 02/07/17, added 02/03 DISCONTINUED Gabapentin 300 mg PO TID 02/07/17, added 02/03 (2) Atrial fibrillation Occasionally HR goes to 130s but recently controlled Chronic Due to patient being blind and having falls - she is not on anticoagulation at home, however we are giving her VTE prophylaxis Lovenox 40mg SC QD while here Echo 07/2016: in AFib; LA mildly dilated; Normal size RA/RV/LV; LVEF of 50-55%; Sclerotic trileaflet aortic valve; Mild concentric LVH; Indeterminate diastolic function; Metoprolol succinate 50mg PO BID Cardizem PO 30mg BID started 02/06/2017 Cardizem 5mg IV ONCE and Digoxin 0.25 IV ONCE given on 02/05/17 Aspirin 81mg PO QD (3) Change in Mental Status Agitated that we discontinued some of her meds which include morphine, flexeril and gabapentin (she does not take these medications at home). Con't home xanax (initially held after AMS but re-continued once AMS improved/ due to agitation) Con't home bupropion (initially held after AMS but re-continued once AMS improved/due to agitation) Repeat Blood culture 02/07/17: NEGATIVE up to date CT Head 02/07/17: Nonspecific white matter changes. Acute infarction may be CT occult within first 24 hours. If focal deficit persists, consider followup CT or MRI. CTA chest 02/07/17: No PE. Interstitial edema. Bibasilar atelectasis - superimposed pneumonia within left lower lobe not excluded. Pulmonary nodules - follow-up CT in 12 months given her smoking hx. (4) Urinary tract infection Urine Culture 02/03: NEGATIVE Urine Culture 02/02: + Klebsiella, sensitive to cipro UA 02/02: Many bacteria, 1+ blood, +Nitrate, 3+ leukocyte esterase, wbc 234, wbc 6 Meds: Rocephin 1g IV BID started 02/02 and stopped 02/04 as no study on sensitivity to rocephin Ciprofloxacin 400mg IV BID started 02/04 and recent urine culture shows sensitivity to cipro (5) Electrolyte Imbalance Hypocalcemia - relatively mild in the low normal range. Ionized calcium normal. Vitamin D 25-hydroxy level is repleted as patient has been on ergocalciferol as outpatient. Obtain PTH and reassess accordingly. PTH w/Ion and Total Calcium: NORMAL (6) Anxiety Xanax 1 mg PO TID (7) Depression Bupropion XL 300mg PO QD (8) Hypertension BP well controlled Isosorbide mononitrate 60mg PO QD (9) Dementia Memantine 10mg PO QD (10) Right shoulder pain hx of right shoulder replacement Ortho consult, Dr Willson * Xrays reviewed. No acute fracture appreciated. Recommend PT/OT. No orthopedic intervention indicated at this time. Patient to follow up with Dr. Willson as outpatient. (11) Prophylactic antibiotic Protonix 40mg PO QD SCDs, Lovenox 40mg SC QD Heart healthy diet Disposition: Patient will need to go to [facility] (currently waiting placement). Per casework manager, daughter wants patient to go to LTAC after [facility]. Discharge Exam - Head Exam Head Exam: absent: ATRAUMATIC, NORMAL INSPECTION, NORMOCEPHALIC - Additional Findings Additional findings: - Constitutional Appears: Not in acute distress, Chronically Ill - Head Exam Additional comments: laceration on forehead closed with Dermabond - Eye Exam Pupil Exam: Fixed, Miosis Additional comments: legally blind - ENT Exam ENT Exam: Mucous Membranes Moist - Neck Exam Additional comments: Soft collar in place. Limited ROM secondary to pain - Respiratory Exam Respiratory Exam: Decreased Breath Sounds. absent: Rales, Rhonchi, Wheezes - Cardiovascular Exam Cardiovascular Exam: Irregular Rhythm, +S1, +S2 - GI/Abdominal Exam GI & Abdominal Exam: Soft, Normal Bowel Sounds. absent: Tenderness - Extremities Exam Extremities Exam: absent: Pedal Edema, Tenderness - Neurological Exam Neurological Exam: Alert, Awake, Oriented x3. absent: Motor Sensory Deficit - Psychiatric Exam Psychiatric exam: Anxious - Skin Skin Exam: Dry, Warm Discharge Plan - Follow Up Plan Condition: FAIR Disposition: REHAB FACILITY/REHAB UNIT Instructions: Ranitidine (By mouth), Omeprazole (By mouth), Tramadol (By mouth) , Syncope (DC), Syncope (GEN), Anxiety (DC) Additional Instructions: Patient is stable for discharge to sub-acute rehab. Patient is to resume all medications as indicated in the MAR: 1. xanax 1mg PO TID 2. Bupropion XL 150mg PO QD 3. Isosorbide Mononitrate 60mg PO QD 4. Memantine 10mg PO QD 5. Metoprolol Succinate 50mg PO QD 6. Vitamin A&D ointment UD 7. Con't duoneb 3ml INH RQ* 8. Aspirin 81mg PO QD 9. CArdizem 30mg PO BID 10. Vitamin D2 50,000u PO QWK 11. Omeprazole 40mg PO QD 12. Ranitidine 300mg PO QD 13. Tramadol 25mg PO Q8H PRN 14. Ciprofloxacin 400mg IVP Q12H until 23:59 on 02/13/2017 Please provide PT/OT for patient as she has chronic pain in her right shoulder. Patient will need to be seen by a primary medical doctor and a psychiatrist once she leaves Sub-Acute Rehab and has a more permanent disposition. If symptoms return or worsen, please return to ER. <Valerio Koo - Last Filed: 02/10/17 14:56> Provider - Provider Date of Admission: 02/02/17 17:37 Attending physician: Valerio Koo MD Hospital Course - Lab Results Lab Results: Micro Results 02/07/17 20:00 Blood Blood Culture - Preliminary NO GROWTH AFTER 48 HOURS 02/07/17 19:30 Blood Blood Culture - Preliminary NO GROWTH AFTER 48 HOURS 02/03/17 15:07 Urine Urine Culture - Final No Growth (<1,000 CFU/ML) 02/02/17 19:00 Urine,Clean Catch Urine Culture - Final Klebsiella Pneumoniae Ssp Pneu Most Recent Lab Values WBC 10.2 K/uL (4.8-10.8) 02/10/17 07:25 RBC 3.68 Mil/uL (3.80-5.20) L 02/10/17 07:25 Hgb 11.6 g/dL (11.0-16.0) 02/10/17 07:25 Hct 34.2 % (34.0-47.0) 02/10/17 07:25 MCV 92.9 fL (81.0-99.0) 02/10/17 07:25 MCH 31.6 pg (27.0-31.0) H 02/10/17 07:25 MCHC 34.0 g/dL (33.0-37.0) 02/10/17 07:25 RDW 14.2 % (11.5-14.5) 02/10/17 07:25 Plt Count 192 K/uL (130-400) 02/10/17 07:25 MPV 9.8 fL (7.2-11.7) 02/10/17 07:25 Neut % (Auto) 72.3 % (50.0-75.0) 02/10/17 07:25 Lymph % (Auto) 10.4 % (20.0-40.0) L 02/10/17 07:25 [place] % (Auto) 15.3 % (0.0-10.0) H 02/10/17 07:25 Eos % (Auto) 1.5 % (0.0-4.0) 02/10/17 07:25 Baso % (Auto) 0.5 % (0.0-2.0) 02/10/17 07:25 Neut # 7.3 K/uL (1.8-7.0) H 02/10/17 07:25 Lymph # 1.1 K/uL (1.0-4.3) 02/10/17 07:25 Meade # 1.6 K/uL (0.0-0.8) H 02/10/17 07:25 Eos # 0.2 K/uL (0.0-0.7) 02/10/17 07:25 Baso # 0.1 K/uL (0.0-0.2) 02/10/17 07:25 Neutrophils % (Manual) 79 % (50-75) H 02/09/17 12:08 Band Neutrophils % 1 % (0-2) 02/08/17 07:24 Lymphocytes % (Manual) 9 % (20-40) L 02/09/17 12:08 Monocytes % (Manual) 11 % (0-10) H 02/09/17 12:08 Basophils % (Manual) 1 % (0-2) 02/09/17 12:08 Toxic Granulation Present 02/05/17 07:41 Platelet Estimate Normal (NORMAL) 02/09/17 12:08 Large Platelets Present 02/07/17 11:56 Giant Platelets Present 02/06/17 11:40 Polychromasia Slight 02/07/17 11:56 Hypochromasia (manual) Slight 02/09/17 12:08 Poikilocytosis (manual Slight 02/09/17 12:08 Anisocytosis (manual) Slight 02/09/17 12:08 Ovalocytes Slight 02/09/17 12:08 PT 11.3 SECONDS (9.7-12.2) 02/02/17 16:08 INR 1.0 02/02/17 16:08 APTT 31 SECONDS (21-34) 02/02/17 16:08 D-Dimer, Quantitative 826 ng/mlDDU (0-243) H 02/07/17 19:38 Puncture Site Lba 02/07/17 17:32 pCO2 33 mm/Hg (35-45) L 02/07/17 17:32 pO2 114 mm/Hg (80-100) H 02/07/17 17:32 HCO3 26.5 mmol/L (21-28) 02/07/17 17:32 ABG pH 7.49 (7.35-7.45) H 02/07/17 17:32 ABG Total CO2 26.1 mmol/L (22-28) 02/07/17 17:32 ABG O2 Saturation 99.2 % (95-98) H 02/07/17 17:32 ABG Base Excess 2.0 mmol/L (-2.0-3.0) 02/07/17 17: ABG Hemoglobin 10.5 g/dL (11.7-17.4) L 02/07/17 17:32 ABG Carboxyhemoglobin 2.5 % (0.5-1.5) H 02/07/17 17:32 POC ABG HHb (Measured) 0.8 % (0.0-5.0) 02/07/17 17:32 ABG Methemoglobin 1.1 % (0.0-3.0) 02/07/17 17:32 Sam Test Na 02/07/17 17:32 Hgb O2 Saturation 95.7 % (95.0-98.0) 02/07/17 17:32 Liter Flow 2.0 02/07/17 17:32 Sodium 138 mmol/L (132-148) 02/10/17 07:25 Potassium 3.8 mmol/L (3.6-5.2) 02/10/17 07:25 Chloride 102 mmol/L (98-107) 02/10/17 07:25 Carbon Dioxide 26 mmol/L (22-30) 02/10/17 07:25 Anion Gap 13 (10-20) 02/10/17 07:25 BUN 10 mg/dL (7-17) 02/10/17 07:25 Creatinine 0.5 mg/dL (0.7-1.2) L 02/10/17 07:25 Est GFR ( Amer) > 60 02/10/17 07:25 Est GFR (Non-Af Amer) > 60 02/10/17 07:25 POC Glucose (mg/dL) 106 mg/dL (65-110) 02/04/17 16:18 Random Glucose 95 mg/dL (65-105) 02/10/17 07:25 Uric Acid 2.5 mg/dL (2.2-7.5) 02/07/17 11:56 Calcium 7.9 mg/dl (8.6-10.4) L 02/10/17 07:25 Ionized Calcium 5.0 mg/dL (4.80-5.60) 02/07/17 11:56 Phosphorus 2.6 mg/dL (2.5-4.5) 02/07/17 11:56 Magnesium 1.9 mg/dL (1.6-2.3) 02/07/17 11:56 Total Bilirubin 0.8 mg/dL (0.2-1.3) 02/10/17 07:25 AST 40 U/L (14-36) H 02/10/17 07:25 ALT 50 U/L (9-52) 02/10/17 07:25 Alkaline Phosphatase 197 U/L (38-126) H 02/10/17 07:25 Total Creatine Kinase 470 U/L (30-135) H 02/05/17 09:22 CK-MB (Mass) 2.63 ng/mL (0.0-3.38) 02/05/17 09:22 Troponin I < 0.0120 ng/mL (0.00-0.120) 02/05/17 09:22 Total Protein 6.1 g/dL (6.3-8.3) L 02/10/17 07:25 Albumin 3.0 g/dL (3.5-5.0) L 02/10/17 07:25 Globulin 3.1 gm/dL (2.2-3.9) 02/10/17 07:25 Albumin/Globulin Ratio 1.0 (1.0-2.1) 02/10/17 07:25 25-OH Vitamin D Total 37.3 NG/ML (30.0-100.0) 02/07/17 11:56 TSH 3rd Generation 0.95 mIU/L (0.46-4.68) 02/05/17 09:22 Prolactin 6.6 ng/mL (3.0-18.9) 02/03/17 08:19 Calcium (PTH Intact) 7.9 mg/dL (8.6-10.4) L 02/07/17 11:56 PTH w/Ion &Tot Calcium 31 pg/mL (14-64) 02/07/17 11:56 Urine Color Yellow (YELLOW) 02/07/17 12:07 Urine Clarity Hazy (Clear) 02/07/17 12:07 Urine pH 5.0 (5.0-8.0) 02/07/17 12:07 Ur Specific [place] 1.018 (1.003-1.030) 02/07/17 12:07 Urine Protein Negative mg/dL (NEGATIVE) 02/07/17 12:07 Urine Glucose (UA) Normal mg/dL (Normal) 02/07/17 12:07 Urine Ketones Trace mg/dL (NEGATIVE) 02/07/17 12:07 Urine Blood 1+ (NEGATIVE) H 02/07/17 12:07 Urine Nitrate Negative (NEGATIVE) 02/07/17 12:07 Urine Bilirubin Negative (NEGATIVE) 02/07/17 12:07 Urine Urobilinogen Normal mg/dL (0.2-1.0) 02/07/17 12:07 Ur Leukocyte Esterase 3+ Wero/uL (Negative) H 02/07/17 12:07 Urine WBC (Auto) 86 /hpf (0-5) H 02/07/17 12:07 Urine RBC (Auto) 5 /hpf (0-3) H 02/07/17 12:07 Ur Squamous Epith Cells 5 /hpf (0-5) 02/07/17 12:07 Ur Transition Epith Cell < 1 /hpf (0-3) 02/02/17 16:46 Urine Bacteria Rare (<OCC) 02/07/17 12:07 Urine Osmolality 652 mosm/kg (300-1000) 02/07/17 12:07 Ur Random Creatinine 76.0 mg/dL 02/07/17 12:07 Ur Random Sodium 67 mmol/L 02/07/17 12:07 Ur Random Potassium 53.6 mmol/L 02/07/17 12:07 Ur Random Calcium 5.9 mg/dL 02/07/17 12:07 Attending/Attestation - Attestation I have personally seen and examined this patient.: Yes I have fully participated in the care of the patient.: Yes I have reviewed all pertinent clinical information, including history, physical exam and plan: Yes Notes (Text): Patients is stable for discharge D/W patient and her daughter. I agree with the discharge assessment and the plan of the discharge
== END 2017-02-10 16:30 | DRG 552 ==
LOC: C.ER 14:29 → C.9E 17:37 → C.6T 18:44
PROVIDERS: ADMIT Internal Medicine; ATTEND Internal Medicine
DX: M50.31 Other cervical disc degeneration, high cervical region (principal); I48.2 Chronic atrial fibrillation; E83.51 Hypocalcemia; B96.1 Klebsiella pneumoniae [K. pneumoniae] as the cause of diseases classified elsewhere; N39.0 Urinary tract infection, site not specified; F07.81 Postconcussional syndrome; H35.52 Pigmentary retinal dystrophy; W01.0XXA Fall on same level from slipping, tripping and stumbling without subsequent striking against object, initial encounter; R45.1 Restlessness and agitation; F41.9 Anxiety disorder, unspecified; F32.9 Major depressive disorder, single episode, unspecified; I10 Essential (primary) hypertension; F03.90 Unspecified dementia, unspecified severity, without behavioral disturbance, psychotic disturbance, mood disturbance, and anxiety; M25.511 Pain in right shoulder; E87.6 Hypokalemia; G47.33 Obstructive sleep apnea (adult) (pediatric); H54.8 Legal blindness, as defined in USA; M75.52 Bursitis of left shoulder; M81.0 Age-related osteoporosis without current pathological fracture; G89.29 Other chronic pain; Z96.611 Presence of right artificial shoulder joint; Z82.49 Family history of ischemic heart disease and other diseases of the circulatory system; Z83.3 Family history of diabetes mellitus; Z87.11 Personal history of peptic ulcer disease; Z87.891 Personal history of nicotine dependence; Z79.82 Long term (current) use of aspirin; Z79.899 Other long term (current) drug therapy; Z80.0 Family history of malignant neoplasm of digestive organs; Z91.81 History of falling

== ENCOUNTER 2017-04-02 14:40 | Emergency (ER) | payer MEDICARE, OTHER ==
[2017-04-02 14:40] VITALS: PULSE 120; BMI 30.4
[2017-04-02] MEDS ORDERED: Sodium Chloride 0.9% 1,000 ML IV ONE (16:57)
[2017-04-02 18:13] LABS: BASO # 0.1 K/uL (0.0-0.2); BASO % 0.6 % (0.0-2.0); EOS # 0.1 K/uL (0.0-0.7); EOS % 0.6 % (0.0-4.0); LYMPH % 21.6 % (20.0-40.0); MEAN CORPUSCULAR HEMOGLOBIN 30.4 pg (27.0-31.0); MEAN CORPUSCULAR HGB CONC 33.1 g/dL (33.0-37.0); MEAN PLATELET VOLUME 8.8 fL (7.2-11.7); MONO % 10.2 % (0.0-10.0); NEUT # 6.3 K/uL (1.8-7.0); RBC 4.77 Mil/uL (3.80-5.20); RED CELL DISTRIBUTION WIDTH 14.9 % (11.5-14.5); WHITE BLOOD COUNT 9.4 K/uL (4.8-10.8)
[2017-04-02 18:16] LABS: SQUAMOUS EPITHIAL 2 /hpf (0-5); URINE BILIRUBIN NEGATIVE (NEGATIVE); URINE BLOOD 1+ (NEGATIVE); URINE CLARITY Clear (Clear); URINE COLOR Straw (YELLOW); URINE GLUCOSE (UA) NORMAL (Normal); URINE LEUKOCYTE ESTERASE NEG Leu/uL (Negative); URINE NITRATE NEGATIVE (NEGATIVE); URINE PROTEIN NEGATIVE (NEGATIVE); URINE UROBILINOGEN NORMAL mg/dL (0.2-1.0)
[2017-04-02 18:17] LABS: HEMOGLOBIN 14.5 g/dL (11.0-16.0)
[2017-04-02 18:25] LABS: CALCIUM 9.4 mg/dl (8.6-10.4); GFR AFRICAN-AMERICAN > 60; GFR NON-AFRICAN AMERICAN > 60; LIPASE 24 U/L (23-300)
[2017-04-02] MEDS ORDERED: Iohexol 300 100 ML IJ ONE (18:30)
[2017-04-02 18:34] LABS: ALBUMIN 4.1 g/dL (3.5-5.0); ALT/SGPT 13 U/L (9-52); AST/SGOT 52 U/L (14-36); BLOOD UREA NITROGEN 10 mg/dL (7-17)
--- NOTE | 2017-04-02 18:40 | C.PDOC ---
History Of Present Illness 71 year old female presents to the ED for evaluation of generalized body aches, vomiting, and diarrhea which began last night. Patient reports decreased PO intake. Patient contacted her PMD, who advised her to present to the ED for further evaluation. She denies fever, chills, pain with urination, pain with defecation, and recent travel. 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 Chief Complaint (Nursing): Abdominal Pain History Per: Patient History/Exam Limitations: other (b/l blindness ) Onset/Duration Of Symptoms: Hrs Current Symptoms Are (Timing): Still Present Radiation Of Pain To:: None Quality Of Discomfort: "Pain" Associated Symptoms: Vomiting, Diarrhea. denies: Fever, Chills, Urinary Symptoms Recent travel outside of the [place]: No Additional History Per: Patient Abnormal Vaginal Bleeding: No Past Medical History Reviewed: Historical Data, Nursing Documentation, Vital Signs Vital Signs: Last Vital Signs Temp 97.4 F L 04/02/17 16:10 Pulse 101 H 04/02/17 16:10 Resp 18 04/02/17 16:10 BP 148/101 H 04/02/17 16:10 Pulse Ox 99 04/02/17 18:45 - Medical History PMH: Anxiety, Arthritis, Asthma, Atrial Fibrillation, Cardia Arrhythmia, COPD, Depression, Emphysema, Fractures (Right Shoulder), Gastritis, Gastrointestinal Ulcer, HTN, Osteoporosis Denies: HIV, Chronic Kidney Disease, Seizures, Sexually Transmitted Disease Surgical History: Appendectomy, Cholecystectomy, Endoscopy - [facility] Procedures CLOSED ENDOSCOPIC BIOPSY OF LARGE INTESTINE (11/26/13) ESOPHAGOGASTRODUODENOSCOPY [EGD] W/CLOSED BIOPSY (11/28/13) Family History: States: Unknown Family Hx - Social History Hx Tobacco Use: No Hx Alcohol Use: No Hx Substance Use: No - Immunization History Hx Tetanus Toxoid Vaccination: No Hx Influenza Vaccination: No Hx Pneumococcal Vaccination: No Review Of Systems Constitutional: Negative for: Fever Gastrointestinal: Positive for: Vomiting, Diarrhea Genitourinary: Negative for: Dysuria Musculoskeletal: Positive for: Other (generalized body aches ) Physical Exam - Physical Exam Appears: Non-toxic, No Acute Distress Skin: Normal Color, Warm, Dry Head: Atraumatic, Normacephalic Eye(s): bilateral: Other (blind ) Oral Mucosa: Moist Neck: Supple Chest: Symmetrical, No Deformity, No Tenderness Cardiovascular: Rhythm Regular, No Murmur Respiratory: Normal Breath Sounds, No Rales, No Rhonchi, No Wheezing Gastrointestinal/Abdominal: Bowel Sounds (present ), Soft, Tenderness (diffuse ) , No Guarding, No Rebound Extremity: Normal ROM, Capillary Refill (less than 2 seconds ) Neurological/Psych: Oriented x3, Normal Speech, Normal Cognition Gait: Steady ED Course And Treatment - Laboratory Results Result Diagrams: 04/02/17 18:11 04/02/17 18:11 O2 Sat by Pulse Oximetry: 99 (on RA) Pulse Ox Interpretation: Normal Medical Decision Making Medical Decision Making: Progress: Bloodwork, urinalysis, CT A/P ordered and reviewed. Pepcid IVP, Zofran IVP, and IV Fluids administered. Disposition - Disposition Disposition Time: 19:00 Condition: GOOD Forms: [facility] (Marshallese) - Clinical Impression Clinical Impression: Abdominal pain, Gastroenteritis - Scribe Statement The provider has reviewed the documentation as recorded by the Scribe (Apple Mendoza) Provider Attestation: All medical record entries made by the Scribe were at my direction and personally dictated by me. I have reviewed the chart and agree that the record accurately reflects my personal performance of the history, physical exam, medical decision making, and the department course for this patient. I have also personally directed, reviewed, and agree with the discharge instructions and disposition.
[2017-04-02 19:48] VITALS: O2SAT 98
[2017-04-02] MEDS ORDERED: Iohexol 240 (50 ml) ONE (20:07)
[2017-04-02 20:17] LABS: CALCIUM 8.8 mg/dl (8.6-10.4); GFR AFRICAN-AMERICAN > 60; GFR NON-AFRICAN AMERICAN > 60
[2017-04-02 20:19] LABS: BLOOD UREA NITROGEN 9 mg/dL (7-17)
--- NOTE | 2017-04-02 22:01 | CT ---
EXAM: CT Abdomen and Pelvis Without Intravenous Contrast EXAM DATE/TIME: 04/02/2017 5:56 PM CLINICAL HISTORY: 71 years old, female; Pain; Abdominal pain; Generalized; Additional info: Diffuse abdominal pain TECHNIQUE: Axial computed tomography images of the abdomen and pelvis without intravenous contrast. All CT scans at this facility use one or more dose reduction techniques, viz.: automated exposure control; ma/kV adjustment per patient size (including targeted exams where dose is matched to indication; i.e. head); or iterative reconstruction technique. Coronal and sagittal reformatted images were created and reviewed. COMPARISON: CT - ABD PELVIS IV CONTRAST ONLY 2016-04-21 15:46 FINDINGS: Artifacts: Streak artifact degrades image quality. Lower thorax: The heart is mildly enlarged. There is a small pericardial calcification. There calcifications of the aortic root. There is dependent atelectasis There is a hiatal hernia. ABDOMEN: Liver: unremarkable Gallbladder and bile ducts: The gallbladder is surgically absent. There is prominence of the common duct. Pancreas: Pancreas is atrophic. Spleen: unremarkable Adrenals: There is nodular thickening of the adrenals. Kidneys and ureters: unremarkable Stomach and bowel: Stomach is partially distended. Rotation is normal. There is contrast throughout the small bowel. There is no obstruction. Appendix and terminal ileum are unremarkable.Ileocecal region is unremarkable. There is moderate stool contrast and air in the right colon. Left colon is incompletely distended which limits evaluation. There is scattered diverticulosis. Appendix: See stomach and bowel PELVIS: Bladder: unremarkable Reproductive: Uterus and adnexal structures are unremarkable. ABDOMEN and PELVIS: Intraperitoneal space: There is no free air or free fluid. Bones/joints: Bony structures are osteopenic. There are degenerative changes. There are bridging osteophytes and syndesmophytes at multiple levels. Soft tissues: unremarkable Vasculature: There are calcified phleboliths. There are vascular calcifications. Lymph nodes: There is no pathologic adenopathy. IMPRESSION: Mild cardiomegaly and atherosclerotic disease; dilated common duct status post cholecystectomy; no acute solid visceral or bowel abnormality, no CT findings of appendicitis or diverticulitis
--- NOTE | 2017-04-02 22:05 | C.PDOC ---
ED Additional Note - Physician Additional Note Physician Additional Note: Patient signed out to me by Dr. Walton at 19:00. Pending results of CT. 21:45 - Patient refused to wait for completion of work up. Signing out AMA. The provider has reviewed the documentation as recorded by the Scribe (David Bee) All medical record entries made by the Scribe were at my direction and personally dictated by me. I have reviewed the chart and agree that the record accurately reflects my personal performance of the history, physical exam, medical decision making, and the department course for this patient. I have also personally directed, reviewed, and agree with the discharge instructions and disposition.
[2017-04-02 22:11] VITALS: BP 134/85; PULSE 88; RESP 20; TEMP 98.4
== END 2017-04-02 22:13 | disposition left against medical advice (07) ==
LOC: C.ER 14:40
DX: K52.9 Noninfective gastroenteritis and colitis, unspecified (principal); I10 Essential (primary) hypertension; I48.91 Unspecified atrial fibrillation

== ENCOUNTER 2017-04-21 12:11 | Emergency (ER) | payer MEDICARE, OTHER ==
[2017-04-21 12:11] VITALS: PULSE 120; BMI 30.4
[2017-04-21] MEDS ORDERED: Sodium Chloride 0.9% 1,000 ML IV ONE (12:51)
[2017-04-21] MEDS ORDERED: Sodium Chloride 0.9% 1,000 ML ONE (12:59)
--- NOTE | 2017-04-21 13:10 | C.PDOC ---
History Of Present Illness 71 y/o female brought to ED by BEENALa with complaints of back pain since yesterday and abdominal pain today with associated nausea. Patient reports constipations and states her last bowel movement was yesterday. Patient states she took 2 Tylenol for pain with no relief and denies vomiting, dysuria, fever, chills or blood in stool. Time Seen by Provider: 04/21/17 12:38 Chief Complaint (Nursing): Upper Extremity Problem/Injury History Per: Patient History/Exam Limitations: no limitations Onset/Duration Of Symptoms: Days Current Symptoms Are (Timing): Still Present Location Of Pain/Discomfort: Diffuse Past Medical History Reviewed: Historical Data, Nursing Documentation, Vital Signs Vital Signs: Last Vital Signs Temp 98.1 F 04/21/17 17:05 Pulse 72 04/21/17 17:05 Resp 18 04/21/17 17:05 BP 110/66 04/21/17 17:05 Pulse Ox 97 04/21/17 18:24 - Medical History PMH: Anxiety, Arthritis, Asthma, Atrial Fibrillation, Cardia Arrhythmia, COPD, Depression, Emphysema, Fractures (Right Shoulder), Gastritis, Gastrointestinal Ulcer, HTN, Osteoporosis Surgical History: Appendectomy, Cholecystectomy, Endoscopy - [facility] Procedures CLOSED ENDOSCOPIC BIOPSY OF LARGE INTESTINE (11/26/13) ESOPHAGOGASTRODUODENOSCOPY [EGD] W/CLOSED BIOPSY (11/28/13) Family History: States: No Known Family Hx - Social History Hx Tobacco Use: No Hx Alcohol Use: No Hx Substance Use: No - Immunization History Hx Tetanus Toxoid Vaccination: No Hx Influenza Vaccination: No Hx Pneumococcal Vaccination: No Review Of Systems Constitutional: Negative for: Fever, Chills Gastrointestinal: Positive for: Nausea, Abdominal Pain, Constipation. Negative for: Vomiting, Diarrhea Genitourinary: Negative for: Dysuria Musculoskeletal: Positive for: Back Pain Skin: Negative for: Rash Physical Exam - Physical Exam Appears: Non-toxic, No Acute Distress Skin: Warm, Dry, No Rash Head: Atraumatic, Normacephalic Eye(s): bilateral: Other (patient is blind ) Oral Mucosa: Moist Neck: Supple Cardiovascular: Rhythm Regular Respiratory: Normal Breath Sounds, No Rales, No Rhonchi, No Wheezing Gastrointestinal/Abdominal: No Soft, Tenderness (non focal), No Guarding, No Rebound Back: No CVA Tenderness Extremity: No Pedal Edema Extremity: Bilateral: Atraumatic Neurological/Psych: Oriented x3 ED Course And Treatment - Laboratory Results Result Diagrams: 04/21/17 13:17 04/21/17 13:17 O2 Sat by Pulse Oximetry: 97 (RA) Pulse Ox Interpretation: Normal - CT Scan/US Abdomen/pelvis with IV contrast Other Rad Studies (CT/US): Read By Radiologist, Radiology Report Reviewed CT/US Interpretation: HISTORY: abd pain. COMPARISON: CT abdomen and pelvis without IV contrast performed 04/02/17. TECHNIQUE: Contrast dose: 100 mL Visipaque IV. Radiation dose: Total exam DLP = 985.55 mGy-cm. This CT exam was performed using one or more of the following dose reduction techniques: Automated exposure control, adjustment of the mA and/or kV according to patient size, and/or use of iterative reconstruction technique. FINDINGS: LOWER THORAX : No visible consolidation, pleural effusion, or pneumothorax. 4 mm right middle lobe pulmonary nodule (series 5, image 2). Small hiatal hernia/distal esophageal wall thickening. LIVER: 1.6 cm right hepatic lobe hypodense lesion , indeterminate (series 3, image 46). GALLBLADDER AND BILE DUCTS: Cholecystectomy. Mild intrahepatic biliary ductal dilatation. Common bile duct appears dilated measuring approximately 9 mm in diameter. PANCREAS: Atrophy. SPLEEN: Unremarkable. ADRENALS: Unremarkable. KIDNEYS AND URETERS: The kidneys enhance symmetrically. No hydronephrosis or obstructing calculus identified. Too small to characterize right renal hypodensity measures approximately 8 mm, statistically likely a cyst. VASCULATURE: No aortic aneurysm. BOWEL: Stomach is nondistended. Lack of oral contrast limits evaluation for bowel pathology. Bowel loops appear within normal limits of caliber without evidence of obstruction. Diverticulosis without CT evidence of acute diverticulitis. APPENDIX: The appendix appears within normal limits of caliber. No secondary signs of acute appendicitis. PERITONEUM: No significant free fluid. No definite free air. LYMPH NODES: No bulky adenopathy identified. BLADDER: Unremarkable. REPRODUCTIVE: The uterus is present. BONES: Osseous demineralization. Multilevel degenerative changes. Scoliosis. OTHER FINDINGS: Sub cm mesenteric lymph nodes, nonspecific. IMPRESSION: 4 mm right middle lobe pulmonary nodule. In the absence of risk factors for lung cancer, no specific imaging follow-up is required. If the patient is a smoker or has other risk factors, follow-up CT at 12 months is recommended to document stability. 1.6 cm right hepatic lobe hypodense lesion, indeterminate. Dedicated cross-sectional imaging suggested for further evaluation. Mild intra and extrahepatic biliary ductal dilatation in the setting of cholecystectomy. Too small to characterize right renal hypodensity measures approximately 8 mm, statistically likely a cyst. Additional findings as above. CT Right shoulder Other Rad Studies (CT/US): Read By Radiologist, Radiology Report Reviewed CT/US Interpretation: PROCEDURE: CT right shoulder. HISTORY: chronic shoulder pain, h.o fx and sx. COMPARISON: Not available. TECHNIQUE: 2.5 mm contiguous axial sections were acquired through the right shoulder. Sagittal and coronal images were reformatted from the axial scan. FINDINGS: The examination is limited due to beam hardening artifact arising from a right shoulder arthroplasty. There is no acute fracture identified. There is pseudoarthrosis at the right glenohumeral articulation. The humeral head prosthesis does not articulate with the glenoid. There is no glenoid prosthesis seen. There is mild acromioclavicular degenerative arthritis. There is no lytic or blastic osseous lesion. There is no evidence of loosening of the right glenohumeral prosthesis. IMPRESSION: No acute fracture. Pseudoarthrosis of the right glenohumeral articulation. Right humeral prosthesis does not articulate with the right glenoid. There is no glenoid prosthesis identified. Medical Decision Making Medical Decision Making: Prior records: Patient has two prescriptions from [facility] clinic where she was seen 04/[address] scan of right shoulder and labs to be done Plan: Labs, CT abdomen, CT Upp Ext Progress: Labs reviewed with no acute findings CT images viewed and radiology report reviewed. 1641 Patient reevaluated and reports feeling better, shoulder pain has improved and abdominal pain resolved. She was observed to eat bread roll with butter. She is stable for discharge Disposition Counseled Patient/Family Regarding: Diagnosis, Need For Followup - Disposition Referrals: Sarita Darden MD [Staff Provider] - Disposition: HOME/ ROUTINE Disposition Time: 16:42 Condition: STABLE Additional Instructions: Follow up with your primary medical doctor or clinic in 2-5 days for further evaluation. Return to the emergency department at any time if symptoms persist or worsen. Instructions: Acute Abdomen (Belly Pain), Adult (DC), Joint Pain Forms: [employer] (Irish) - POA Present On Arrival: None - Clinical Impression Clinical Impression: Pain, abdominal, nonspecific, Chronic shoulder pain - PA / STEAM PRESSURE CHAMBER OPERATOR / Resident Statement MD/DO has reviewed & agrees with the documentation as recorded. - Scribe Statement The provider has reviewed the documentation as recorded by the Dilip Moore All medical record entries made by the Dilip were at my direction and personally dictated by me. I have reviewed the chart and agree that the record accurately reflects my personal performance of the history, physical exam, medical decision making, and the department course for this patient. I have also personally directed, reviewed, and agree with the discharge instructions and disposition.
[2017-04-21 13:22] LABS: BASO # 0.1 K/uL (0.0-0.2); BASO % 1.3 % (0.0-2.0); EOS % 0.5 % (0.0-4.0); HEMOGLOBIN 12.9 g/dL (11.0-16.0); LYMPH # 1.4 K/uL (1.0-4.3); LYMPH % 20.1 % (20.0-40.0); MEAN CELL VOLUME 91.5 fL (81.0-99.0); MEAN CORPUSCULAR HEMOGLOBIN 30.2 pg (27.0-31.0); MEAN PLATELET VOLUME 9.6 fL (7.2-11.7); MONO % 14.2 % (0.0-10.0); NEUT # 4.6 K/uL (1.8-7.0); NEUT % 63.9 % (50.0-75.0); RBC 4.28 Mil/uL (3.80-5.20); RED CELL DISTRIBUTION WIDTH 15.5 % (11.5-14.5); WHITE BLOOD COUNT 7.1 K/uL (4.8-10.8)
[2017-04-21 13:37] LABS: ALB/GLOB RATIO 1.1 (1.0-2.1); ALBUMIN 3.7 g/dL (3.5-5.0); ALT/SGPT 24 U/L (9-52); AST/SGOT 29 U/L (14-36); BLOOD UREA NITROGEN 18 mg/dL (7-17); CALCIUM 8.7 mg/dl (8.6-10.4); GFR AFRICAN-AMERICAN > 60; GFR NON-AFRICAN AMERICAN > 60; LIPASE 31 U/L (23-300)
[2017-04-21] MEDS ORDERED: Iodixanol 320 MG/ML 100 ML BOTTLE IV ONE (14:28)
[2017-04-21 14:37] LABS: PROTHROMBIN TIME 11.9 SECONDS (9.7-12.2)
[2017-04-21 16:06] LABS: SQUAMOUS EPITHIAL 7 /hpf (0-5); URINE BILIRUBIN NEGATIVE (NEGATIVE); URINE BLOOD NEGATIVE (NEGATIVE); URINE CLARITY Clear (Clear); URINE COLOR Yellow (YELLOW); URINE GLUCOSE (UA) NORMAL (Normal); URINE LEUKOCYTE ESTERASE NEG Leu/uL (Negative); URINE PROTEIN NEGATIVE (NEGATIVE); URINE UROBILINOGEN NORMAL mg/dL (0.2-1.0)
--- NOTE | 2017-04-21 16:27 | CT ---
PROCEDURE: CT Abdomen and Pelvis with contrast HISTORY: abd pain COMPARISON: CT abdomen and pelvis without IV contrast performed 04/02/17 TECHNIQUE: Contrast dose: 100 mL Visipaque IV Radiation dose: Total exam DLP = 985.55 mGy-cm. This CT exam was performed using one or more of the following dose reduction techniques: Automated exposure control, adjustment of the mA and/or kV according to patient size, and/or use of iterative reconstruction technique. FINDINGS: LOWER THORAX: No visible consolidation, pleural effusion, or pneumothorax. 4 mm right middle lobe pulmonary nodule (series 5, image 2). Small hiatal hernia/distal esophageal wall thickening. LIVER: 1.6 cm right hepatic lobe hypodense lesion, indeterminate (series 3, image 46). GALLBLADDER AND BILE DUCTS: Cholecystectomy. Mild intrahepatic biliary ductal dilatation. Common bile duct appears dilated measuring approximately 9 mm in diameter. PANCREAS: Atrophy. SPLEEN: Unremarkable. ADRENALS: Unremarkable. KIDNEYS AND URETERS: The kidneys enhance symmetrically. No hydronephrosis or obstructing calculus identified. Too small to characterize right renal hypodensity measures approximately 8 mm, statistically likely a cyst. VASCULATURE: No aortic aneurysm. BOWEL: Stomach is nondistended. Lack of oral contrast limits evaluation for bowel pathology. Bowel loops appear within normal limits of caliber without evidence of obstruction. Diverticulosis without CT evidence of acute diverticulitis. APPENDIX: The appendix appears within normal limits of caliber. No secondary signs of acute appendicitis. PERITONEUM: No significant free fluid. No definite free air. LYMPH NODES: No bulky adenopathy identified. BLADDER: Unremarkable. REPRODUCTIVE: The uterus is present. BONES: Osseous demineralization. Multilevel degenerative changes. Scoliosis. OTHER FINDINGS: Sub cm mesenteric lymph nodes, nonspecific. IMPRESSION: 4 mm right middle lobe pulmonary nodule. In the absence of risk factors for lung cancer, no specific imaging follow-up is required. If the patient is a smoker or has other risk factors, follow-up CT at 12 months is recommended to document stability. 1.6 cm right hepatic lobe hypodense lesion, indeterminate. Dedicated cross-sectional imaging suggested for further evaluation. Mild intra and extrahepatic biliary ductal dilatation in the setting of cholecystectomy. Too small to characterize right renal hypodensity measures approximately 8 mm, statistically likely a cyst. Additional findings as above.
[2017-04-21 17:06] VITALS: BP 110/66; PULSE 72; RESP 18; TEMP 98.1
--- NOTE | 2017-04-21 17:11 | CT ---
PROCEDURE: CT right shoulder HISTORY: chronic shoulder pain, h.o fx and sx COMPARISON: Not available TECHNIQUE: 2.5 mm contiguous axial sections were acquired through the right shoulder. Sagittal and coronal images were reformatted from the axial scan. FINDINGS: The examination is limited due to beam hardening artifact arising from a right shoulder arthroplasty. There is no acute fracture identified. There is pseudoarthrosis at the right glenohumeral articulation. The humeral head prosthesis does not articulate with the glenoid. There is no glenoid prosthesis seen. There is mild acromioclavicular degenerative arthritis. There is no lytic or blastic osseous lesion. There is no evidence of loosening of the right glenohumeral prosthesis. IMPRESSION: No acute fracture. Pseudoarthrosis of the right glenohumeral articulation. Right humeral prosthesis does not articulate with the right glenoid. There is no glenoid prosthesis identified.
[2017-04-21 17:45] VITALS: O2SAT 97
== END 2017-04-21 18:13 | disposition home or self-care (01) ==
LOC: C.ER 12:11
DX: M25.511 Pain in right shoulder (principal); G89.29 Other chronic pain; R10.9 Unspecified abdominal pain; I48.91 Unspecified atrial fibrillation; I10 Essential (primary) hypertension; I49.9 Cardiac arrhythmia, unspecified; Z87.891 Personal history of nicotine dependence
CPT/HCPCS: 73200; 74177; 80053; 81001; 83690; 85025; 85610; 85651; 85730; 96361; 96374; 96375; 99285; J2270; J2405; J7040; Q9967

== ENCOUNTER 2017-05-15 12:28 | Emergency (ER) | payer MEDICARE, OTHER ==
[2017-05-15 12:29] VITALS: PULSE 120; BMI 30.4
[2017-05-15 12:50] VITALS: RESP 18; TEMP 97.8
--- NOTE | 2017-05-15 14:25 | C.PDOC ---
History Of Present Illness 72 year old female presents to the ED for evaluation of right shoulder pain which began approx 1 month ago. Patient states she sustained a fall 1 month ago and was evaluated in the ED, but does not recall what was done. Patient has history of right shoulder prosthesis done in 1995, but states that her orthopedic surgeon has since retired. Patient does not currently have orthopedic surgeon. She denies new trauma/injuries, chest pain, SOB, cough, sensory changes. Time Seen by Provider: 05/15/17 13:04 Chief Complaint (Nursing): Upper Extremity Problem/Injury History Per: Patient History/Exam Limitations: no limitations Onset/Duration Of Symptoms: Other (1 month ) Current Symptoms Are (Timing): Still Present Quality: "Pain" Severity: Mild Additional History Per: Patient Past Medical History Reviewed: Historical Data, Nursing Documentation, Vital Signs Vital Signs: Last Vital Signs Temp 97.8 F 05/15/17 12:45 Pulse 75 05/15/17 17:00 Resp 18 05/15/17 17:00 BP 110/70 05/15/17 17:00 Pulse Ox 98 05/15/17 17:00 - Medical History PMH: Anxiety, Arthritis, Asthma, Atrial Fibrillation, Cardia Arrhythmia, COPD, Depression, Emphysema, Fractures (Right Shoulder), Gastritis, Gastrointestinal Ulcer, HTN, Osteoporosis Surgical History: Appendectomy, Cholecystectomy, Endoscopy - [facility] Procedures CLOSED ENDOSCOPIC BIOPSY OF LARGE INTESTINE (11/26/13) ESOPHAGOGASTRODUODENOSCOPY [EGD] W/CLOSED BIOPSY (11/28/13) Family History: States: No Known Family Hx - Social History Hx Tobacco Use: No Hx Alcohol Use: No Hx Substance Use: No - Immunization History Hx Tetanus Toxoid Vaccination: No Hx Influenza Vaccination: No Hx Pneumococcal Vaccination: No Review Of Systems Except As Marked, All Systems Reviewed And Found Negative. Constitutional: Negative for: Fever, Chills Cardiovascular: Negative for: Chest Pain Respiratory: Negative for: Cough, Shortness of Breath Musculoskeletal: Positive for: Shoulder Pain (right) Skin: Negative for: Rash Neurological: Negative for: Weakness, Numbness Physical Exam - Physical Exam Appears: Well, Non-toxic, No Acute Distress Skin: Normal Color, Warm, Dry, No Rash Head: Normacephalic Eye(s): bilateral: Normal Inspection Oral Mucosa: Moist Neck: Supple Chest: Symmetrical, No Deformity, No Tenderness Cardiovascular: Rhythm Regular Respiratory: Normal Breath Sounds, No Rales, No Rhonchi, No Wheezing Extremity: No Normal ROM (decreased, right shoulder ), Tenderness (diffuse TTP at right shoulder, no deformity or swelling), Capillary Refill (< 2 seconds all digits ), No Deformity, No Swelling Extremity: Bilateral: Normal Color And Temperature Pulses: Left Radial: Normal, Right Radial: Normal Neurological/Psych: Oriented x3, Normal Sensation ED Course And Treatment O2 Sat by Pulse Oximetry: 97 (on RA) Pulse Ox Interpretation: Normal - Other Rad right shoulder XR X-Ray: Interpreted by Me, Viewed By Me, Read By Radiologist Interpretation: PROCEDURE: Radiographs of the Right Shoulder. HISTORY: Right shoulder pain. COMPARISON: 02/05/2016. FINDINGS: BONES: There is no acute displaced fracture or bone destruction. JOINTS: Status post right glenohumeral arthroplasty. Extensive lateral periarticular heterotopic ossification. SOFT TISSUES: Normal. OTHER FINDINGS: None. IMPRESSION: No significant interval change. Stable appearance of glenohumeral arthroplasty with extensive lateral periarticular heterotopic ossification. Progress Note: Xray of Right shoulder ordered and reviewed - unchanged from prior CT scan/imaging done during previous ER visit. Patient given Tylenol PO for pain. She was placed in right shoulder sling by specimen technician for comfort. Reevaluation Time: 14:30 Reassessment Condition: Improved (Patient reassessed, is resting comfortably and states pain has improved. Explained to patient that she needs to follow up with orthopedic surgeon, as her shoulder imaging is abnormal and needs further evaluation by specialist. Follow up info for operations engineer ortho/ortho clinic given. Patient understands she should return to ED if her symptoms worsen.) Disposition Counseled Patient/Family Regarding: Studies Performed, Diagnosis, Need For Followup, Rx Given - Disposition Referrals: Jasbir Khan MD [Staff Provider] - [facility] [Outside] [facility] [place] [Outside] Disposition: HOME/ ROUTINE Disposition Time: 14:30 Condition: STABLE Additional Instructions: YOU NEED TO FOLLOW UP WITH ORTHOPEDICS WITHIN 1 WEEK FOR FURTHER EVALUATION USE MEDICATION NEEDED FOR PAIN RETURN TO ER IF SYMPTOMS WORSEN Prescriptions: Acetaminophen [Tylenol 325mg tab] 650 mg PO Q6 PRN #30 tab PRN Reason: pain/fever Instructions: Frozen Shoulder (DC) Forms: [employer] (South Korean) Print Language: MACANESE - POA Present On Arrival: None - Clinical Impression Clinical Impression: Chronic right shoulder pain, Pseudoarthrosis - Scribe Statement The provider has reviewed the documentation as recorded by the Scribe (Apple Mendoza) Provider Attestation: All medical record entries made by the Scribe were at my direction and personally dictated by me. I have reviewed the chart and agree that the record accurately reflects my personal performance of the history, physical exam, medical decision making, and the department course for this patient. I have also personally directed, reviewed, and agree with the discharge instructions and disposition.
--- NOTE | 2017-05-15 15:00 | RAD ---
PROCEDURE: Radiographs of the Right Shoulder HISTORY: Right shoulder pain COMPARISON: 02/05/2016. FINDINGS: BONES: There is no acute displaced fracture or bone destruction. JOINTS: Status post right glenohumeral arthroplasty. Extensive lateral periarticular heterotopic ossification. SOFT TISSUES: Normal. OTHER FINDINGS: None. IMPRESSION: No significant interval change. Stable appearance of glenohumeral arthroplasty with extensive lateral periarticular heterotopic ossification.
[2017-05-15 17:11] VITALS: BP 110/70; PULSE 75
[2017-05-17 18:07] VITALS: O2SAT 97
== END 2017-05-15 17:12 | disposition home or self-care (01) ==
LOC: C.ER 12:28
DX: G89.29 Other chronic pain (principal); M25.511 Pain in right shoulder; T14.8XXD Other injury of unspecified body region, subsequent encounter; W19.XXXD Unspecified fall, subsequent encounter

== ENCOUNTER 2017-09-14 21:26 | Emergency (ER) | payer OTHER ==
[2017-09-14 21:26] VITALS: PULSE 120; BMI 30.4
[2017-09-14 22:36] VITALS: PULSE 63; RESP 16; TEMP 98.1; O2SAT 98
--- NOTE | 2017-09-14 22:54 | C.PDOC ---
History Of Present Illness 72 year old female presents to the ED for evaluation of right-sided lower back pain which began yesterday. Patient admits to experiencing similar symptoms in the past. She has not taken any pain medication because she ran out of her Percocet, which she usually takes for pain. Review of prior records shows patient has had multiple ER visits for various pain-related complaints. Patient denies injury/trauma at this time. Time Seen by Provider: 09/14/17 22:39 Chief Complaint (Nursing): Hip Pain History Per: Patient History/Exam Limitations: no limitations Onset/Duration Of Symptoms: Hrs Current Symptoms Are (Timing): Still Present Additional History Per: Patient Past Medical History Reviewed: Historical Data, Nursing Documentation, Vital Signs Vital Signs: Last Vital Signs Temp 98.1 F 09/14/17 22:33 Pulse 63 09/15/17 00:03 Resp 16 09/15/17 00:03 BP 141/70 09/15/17 00:03 Pulse Ox 98 09/15/17 00:13 - Medical History PMH: Anxiety, Arthritis, Asthma, Atrial Fibrillation, Cardia Arrhythmia, COPD, Depression, Emphysema, Fractures (Right Shoulder), Gastritis, Gastrointestinal Ulcer, HTN, Osteoporosis Denies: HIV, Chronic Kidney Disease, Seizures, Sexually Transmitted Disease Surgical History: Appendectomy, Cholecystectomy, Endoscopy - [facility] Procedures CLOSED ENDOSCOPIC BIOPSY OF LARGE INTESTINE (11/26/13) ESOPHAGOGASTRODUODENOSCOPY [EGD] W/CLOSED BIOPSY (11/28/13) Family History: States: Unknown Family Hx - Social History Hx Tobacco Use: No Hx Alcohol Use: No Hx Substance Use: No - Immunization History Hx Tetanus Toxoid Vaccination: No Hx Influenza Vaccination: No Hx Pneumococcal Vaccination: No Review Of Systems Musculoskeletal: Positive for: Back Pain (right-sided, lower ) Physical Exam - Physical Exam Appears: Non-toxic, Other (in mild distress ) Skin: Normal Color, Warm, Dry Head: Atraumatic, Normacephalic Eye(s): bilateral: Normal Inspection Oral Mucosa: Moist Neck: Supple Chest: Symmetrical, No Deformity, No Tenderness Cardiovascular: Rhythm Regular, No Murmur Respiratory: Normal Breath Sounds, No Rales, No Rhonchi, No Wheezing Back: Decreased ROM (secondary to pain ), Other (tenderness to right lower back ) Extremity: No Normal ROM (limited, secondary to pain ) Neurological/Psych: Oriented x3, Normal Speech, Normal Cognition ED Course And Treatment O2 Sat by Pulse Oximetry: 98 (on RA) Pulse Ox Interpretation: Normal Progress Note: Percocet PO given. Progress - Data Reviewed Data Reviewed: Old records Disposition Counseled Patient/Family Regarding: Diagnosis, Need For Followup, Rx Given - Disposition Referrals: YOUR,PMD [Other] Disposition: HOME/ ROUTINE Disposition Time: 00:12 Condition: IMPROVED Instructions: Hip Pain (DC) Forms: [employer] (Chinese) - Clinical Impression Clinical Impression: Hip pain, Chronic pain - Scribe Statement The provider has reviewed the documentation as recorded by the Scribe (Apple Mendoza) Provider Attestation: All medical record entries made by the Scribe were at my direction and personally dictated by me. I have reviewed the chart and agree that the record accurately reflects my personal performance of the history, physical exam, medical decision making, and the department course for this patient. I have also personally directed, reviewed, and agree with the discharge instructions and disposition.
[2017-09-14] MEDS ORDERED: Oxycodone/Acetaminophen 5/325 mg Tab ONE (22:59)
[2017-09-14] MEDS: Oxycodone/Acetaminophen 5/325 mg Tab PO STA (23:01)
[2017-09-15 00:04] VITALS: BP 141/70
== END 2017-09-15 01:17 | disposition home or self-care (01) ==
LOC: C.ER 21:26
DX: G89.29 Other chronic pain (principal); M25.551 Pain in right hip; I10 Essential (primary) hypertension; I48.91 Unspecified atrial fibrillation; M81.0 Age-related osteoporosis without current pathological fracture; J44.9 Chronic obstructive pulmonary disease, unspecified